=== PATIENT | male | born 1935 | race Caucasian/White ===

== ENCOUNTER 2019-05-10 05:02 | Inpatient (IN) ==
--- NOTE | 2019-05-10 05:13 | Emergency Department Note ---
Disposition Clinical Impression: Fracture of femoral neck, right, closed Qualifiers: Encounter type: initial encounter Qualified Code(s): S72.001A - Fracture of unspecified part of neck of right femur, initial encounter for closed fracture Disposition: Admitted As Inpatient Forms: ED Satisfaction Letter Time of Disposition: 06:32 Fall HPI - General Stated Complaint: HIP PAIN Time Seen by Provider: 05/10/19 05:08 Source: patient, EMS Mode of arrival: EMS Limitations: no limitations Nursing Notes Reviewed: Yes Vital Signs Reviewed: Yes - History of Present Illness HPI Narrative: 84M with Hx of HTN and Alzheimer's dementia presents to the ED via EMS from a [facility] after a fall. Patient tripped over his walker and fell on his right side causing him severe right hip pain to the point where he was unable to get up. He pressed his call light right away and nursing staff called EMS. Patient was not down longer than 5 minutes. Patient remembers the fall. He is alert and oriented to self and place but not time. He states this is normal for him. He states he did hit his head but does not have any head or neck pain at this time. He is not on any blood thinning medications. Patient states he does also have some right knee pain but his hip is more painful. He denies any other symptoms at this time. - Related Data Home Medications Medication Instructions Recorded Confirmed Carbidopa/Levodopa ER 50/200 1 each PO DAILY 04/16/16 04/16/16 [Sinemet ER 50-200 TAB] Cyclobenzaprine [Flexeril] 10 mg PO DAILY 04/16/16 04/16/16 Fenofibric Acid (Choline) 135 mg PO DAILY 04/16/16 04/16/16 [Trilipix] Finasteride [Proscar] 5 mg PO DAILY 04/16/16 04/16/16 Furosemide [Lasix] 40 mg PO DAILY 04/16/16 04/16/16 HYDROcodone/Acet 5/325 mg [[place] 1 tab PO Q6H PRN 04/16/16 04/16/16 5-325 mg] Meloxicam [Mobic] 15 mg PO DAILY 04/16/16 04/16/16 Pantoprazole Sodium 40 mg PO DAILY 04/16/16 04/16/16 Potassium Chloride [K-Tab ER] 20 meq PO DAILY 04/16/16 04/16/16 Simvastatin [Zocor] 40 mg PO HS 04/16/16 04/16/16 Tamsulosin HCl [Flomax] 0.4 mg PO DAILY 10/15/16 10/15/16 Allergies Allergy/AdvReac Type Severity Reaction Status Date / Time Penicillins AdvReac Swelling Verified 04/16/16 13:59 of Lip/Tongue/Throat All systems ED: reviewed and negative except as stated. Review of Systems: As Per HPI Constitutional: Denies: fever, chills, weakness Cardiovascular: Denies: chest pain, palpitations, dyspnea on exertion Respiratory: Denies: cough, dyspnea, wheezes Gastrointestinal: Denies: abdominal pain, nausea Musculoskeletal: Reports: arthralgia. Denies: back pain, neck pain Neurological: Denies: headache Fall PMH - Past Medical History Medical history: Reports: arthritis, CHF, dementia, hyperlipidemia, hypertension, myocardial infarction Surgical history: Reports: orthopedic, other Psychiatric history: Reports: other - Social History Smoking Status: Former smoker Alcohol use: Reports: none Drug use: Reports: none Physical Exam - General Limitations: no limitations General appearance: alert, in no apparent distress - Head Head exam: atraumatic, normocephalic - Eye Eye exam: Present: normal appearance, EOMI - Neck Neck exam: Present: normal inspection. Absent: tenderness - Chest Chest inspection: Present: normal inspection. Absent: tenderness, rash - Respiratory Respiratory exam: Present: normal lung sounds bilaterally. Absent: wheezes - Cardiovascular Cardiovascular exam: Present: regular rate, normal rhythm - Abdominal Exam Abdominal exam: Present: soft, Non-Tender. Absent: distention, guarding, rebound, rigidity - Extremities Exam Extremities exam: Present: other (right hip is tender to palpation. leg is slightly flexed and held in internal rotation. medial portion of right knee is tender to palpation. No signs of ecchymosis or edema of the right hip or knee. Bilateral dorsalis pedis pulses equal. 1+ pitting edema or the BLE.) - Neurological Exam Neurological exam: Present: alert, other (oriented to self and place but not time) - Psychiatric Psychiatric exam: Present: normal affect, normal mood - Skin Skin exam: Present: warm, dry, intact Course Vital Signs Temperature 97.9 F 05/10/19 05:05 Pulse Rate 88 05/10/19 05:05 Respiratory Rate 20 05/10/19 05:05 Blood Pressure 141/65 05/10/19 05:05 O2 Sat by Pulse Oximetry 99 05/10/19 05:05 Temperature 97.9 F 05/10/19 05:05 Pulse Rate 88 05/10/19 05:05 Respiratory Rate 20 05/10/19 05:05 Blood Pressure 141/65 05/10/19 05:05 O2 Sat by Pulse Oximetry 99 05/10/19 05:05 Oxygen Delivery Oxygen Delivery Room Air Fall - [facility] Narrative Medical decision making narrative: Pt presents after a mechanical fall with right hip and knee pain concerning for hip dislocation vs fracture. XRs of the RLE have been ordered. Pt is not in significant pain at this time but an IV will be placed for administration of pain medications. 0526 - x-rays taken at bedside revealed a comminuted femoral neck vs intertrochanteric fracture per my interpretation. Preop labs will be obtained and once the x-rays have officially been read by radiology we will page for thorough and plan on admission to the hospital. Pt is now experiencing some pain after manipulation of his leg to obtain the XRs. Daughter states the patient takes hydrocodone at home for chronic pain, therefore we will administer 1mg Dilaudid with Zofran to help with the patient's pain. 616 - Spoke with Dr. Dawkins who was made aware of the patient and states he will see the patient in consultation. Hospitalist has been paged for admission. Ekg did not demonstrate any significant abnormalities. Pts lab work was only significant for an elevated Creatinine which appears to be at the patient's baseline. 631 - Pt has been accepted to the hospital by Dr. Mathews - Medical Records Medical records reviewed: Yes I reviewed the patient's medical records. - Lab Data Lab results reviewed: Yes I reviewed the patient's lab results. Result diagrams: 05/10/19 05:12 05/10/19 05:12 Lab Results 05/10/19 05/10/19 05/10/19 Range/Units 05:12 05:12 05:12 WBC 9.5 (4.3-11.1) K/mcL RBC 4.06 L (4.19-5.50) M/mcL Hgb 12.7 L (12.9-16.9) g/dL Hct 38.3 (37.5-50.1) % MCV 94.3 (83.0-100.0) fL MCH 31.3 (28.0-33.3) pg MCHC 33.2 (31.6-35.5) g/dL RDW 13.1 (11.5-14.5) % Plt Count 255 (140-400) K/mcL MPV 11.3 (9.4-12.4) fL Immature Gran % 0.4 (0-4) % Seg Neutrophils % 59.5 % Lymphocytes % 26.1 % Monocytes % 10.3 % Eosinophils % 3.1 % Basophils % 0.6 % Neutrophils # 5.7 (1.6-8.9) K/mcL Lymphocytes # 2.5 (0.6-4.6) K/mcL Monocytes # 1.0 (0.0-1.3) K/mcL Eosinophils # 0.3 (0.0-0.6) K/mcL Basophils # 0.1 (0.0-0.2) K/mcL PT 11.8 (9.4-12.1) Seconds INR 1.0 Sodium 139 (136-145) mEq/L Potassium 3.7 (3.5-5.1) mEq/L Chloride 102 (98-107) mEq/L Carbon Dioxide 25 (23-29) mEq/L BUN 32 H (8-23) mg/dL Creatinine 2.66 H (0.70-1.30) mg/dL Est GFR ( Amer) 28 L (> 60) Est GFR (Non-Af Amer) 23 L (> 60) BUN/Creatinine Ratio 12 (6-26) Glucose 164 H (70-105) mg/dL Calculated Osmolality 299 (280-300) Calcium 9.5 (8.6-10.3) mg/dL - Radiology Data Radiology results reviewed: Yes I reviewed the patient's radiology results. - EKG Data EKG attestation: Yes I reviewed and interpreted this EKG. EKG results narrative: EKG obtained at 544 on 04/30/2019 Heart rate 83 bpm, IL interval 211, QRS duration 153, QT 410, QTC 482 Sinus rhythm with nonspecific intraventricular conduction delay. No signs of ST segment elevation or depression. No other T-wave abnormalities. No old EKG for comparison at this time.
[2019-05-10] MEDS ORDERED: Ondansetron 4 MG/2 ML VIAL IVP STA (05:29)
[2019-05-10] MEDS ORDERED: *HR* HYDROmorphone (PF) 1 MG/ML SYRINGE IVP ONE ×2 (05:29→08:51)
[2019-05-10 05:35] LABS: Basophils # 0.1 K/mcL (0.0-0.2); Basophils % 0.6 %; Eosinophils # 0.3 K/mcL (0.0-0.6); Eosinophils % 3.1 %; Hematocrit 38.3 % (37.5-50.1); Hemoglobin 12.7 g/dL (12.9-16.9); Immature Granulocytes % 0.4 % (0-4); Lymphocytes # 2.5 K/mcL (0.6-4.6); Lymphocytes % 26.1 %; Mean Corpuscular HGB Conc 33.2 g/dL (31.6-35.5); Mean Corpuscular Hemoglobin 31.3 pg (28.0-33.3); Mean Corpuscular Volume 94.3 fL (83.0-100.0); Mean Platelet Volume 11.3 fL (9.4-12.4); Monocytes % 10.3 %; Neutrophils # 5.7 K/mcL (1.6-8.9); Platelet Count 255 K/mcL (140-400); Red Blood Count 4.06 M/mcL (4.19-5.50); Red Cell Distribution Width 13.1 % (11.5-14.5); Segmented Neutrophils % 59.5 %; White Blood Count 9.5 K/mcL (4.3-11.1)
[2019-05-10 05:52] LABS: Prothrombin Time 11.8 Seconds (9.4-12.1)
--- NOTE | 2019-05-10 05:53 | Emergency Department Note ---
Disposition Clinical Impression: Fracture of femoral neck, right, closed Qualifiers: Encounter type: initial encounter Qualified Code(s): S72.001A - Fracture of unspecified part of neck of right femur, initial encounter for closed fracture Disposition: Admitted As Inpatient Forms: ED Satisfaction Letter Time of Disposition: 06:41 General Adult HPI - General Chief complaint: ED Fall Stated complaint: HIP PAIN Time Seen by Provider: 05/10/19 05:08 Source: patient, EMS Mode of arrival: EMS Limitations: no limitations Nursing Notes Reviewed: Yes Vital Signs Reviewed: Yes - History of Present Illness Pain Scale: 8 - Related Data Home Medications Medication Instructions Recorded Confirmed Carbidopa/Levodopa ER 50/200 1 each PO DAILY 04/16/16 04/16/16 [Sinemet ER 50-200 TAB] Cyclobenzaprine [Flexeril] 10 mg PO DAILY 04/16/16 04/16/16 Fenofibric Acid (Choline) 135 mg PO DAILY 04/16/16 04/16/16 [Trilipix] Finasteride [Proscar] 5 mg PO DAILY 04/16/16 04/16/16 Furosemide [Lasix] 40 mg PO DAILY 04/16/16 04/16/16 HYDROcodone/Acet 5/325 mg [[place] 1 tab PO Q6H PRN 04/16/16 04/16/16 5-325 mg] Meloxicam [Mobic] 15 mg PO DAILY 04/16/16 04/16/16 Pantoprazole Sodium 40 mg PO DAILY 04/16/16 04/16/16 Potassium Chloride [K-Tab ER] 20 meq PO DAILY 04/16/16 04/16/16 Simvastatin [Zocor] 40 mg PO HS 04/16/16 04/16/16 Tamsulosin HCl [Flomax] 0.4 mg PO DAILY 10/15/16 10/15/16 Allergies Allergy/AdvReac Type Severity Reaction Status Date / Time Penicillins AdvReac Swelling Verified 04/16/16 13:59 of Lip/Tongue/Throat Constitutional: Denies: fever, chills, weakness Cardiovascular: Denies: chest pain, palpitations, dyspnea on exertion Respiratory: Denies: cough, dyspnea, wheezes Gastrointestinal: Denies: abdominal pain, nausea Musculoskeletal: Reports: arthralgia. Denies: back pain, neck pain Neurological: Denies: headache Past Medical History - Past Medical History Medical history: Reports: arthritis, CHF, dementia, GERD, hyperlipidemia, hypertension, myocardial infarction Surgical history: Reports: orthopedic, other Psychiatric history: Reports: other - Social History Smoking Status: Former smoker Smokeless Tobacco Status: Yes (chewing tobacco) Alcohol use: Reports: none Drug use: Reports: none Physical Exam - General Limitations: no limitations General appearance: alert, in no apparent distress Course Vital Signs Temperature 97.9 F 05/10/19 05:05 Pulse Rate 88 05/10/19 05:05 Respiratory Rate 20 05/10/19 05:05 Blood Pressure 141/65 05/10/19 05:05 O2 Sat by Pulse Oximetry 99 05/10/19 05:05 Temperature 97.9 F 05/10/19 05:05 Pulse Rate 88 05/10/19 05:05 Respiratory Rate 20 05/10/19 05:05 Blood Pressure 141/65 05/10/19 05:05 O2 Sat by Pulse Oximetry 99 05/10/19 05:05 Oxygen Delivery Oxygen Delivery Room Air Medical Decision Making - Lab Data Lab results reviewed: Yes I reviewed the patient's lab results. Result diagrams: 05/10/19 05:12 05/10/19 05:12 Lab Results 05/10/19 05/10/19 05/10/19 Range/Units 05:12 05:12 05:12 WBC 9.5 (4.3-11.1) K/mcL RBC 4.06 L (4.19-5.50) M/mcL Hgb 12.7 L (12.9-16.9) g/dL Hct 38.3 (37.5-50.1) % MCV 94.3 (83.0-100.0) fL MCH 31.3 (28.0-33.3) pg MCHC 33.2 (31.6-35.5) g/dL RDW 13.1 (11.5-14.5) % Plt Count 255 (140-400) K/mcL MPV 11.3 (9.4-12.4) fL Immature Gran % 0.4 (0-4) % Seg Neutrophils % 59.5 % Lymphocytes % 26.1 % Monocytes % 10.3 % Eosinophils % 3.1 % Basophils % 0.6 % Neutrophils # 5.7 (1.6-8.9) K/mcL Lymphocytes # 2.5 (0.6-4.6) K/mcL Monocytes # 1.0 (0.0-1.3) K/mcL Eosinophils # 0.3 (0.0-0.6) K/mcL Basophils # 0.1 (0.0-0.2) K/mcL PT 11.8 (9.4-12.1) Seconds INR 1.0 Sodium 139 (136-145) mEq/L Potassium 3.7 (3.5-5.1) mEq/L Chloride 102 (98-107) mEq/L Carbon Dioxide 25 (23-29) mEq/L BUN 32 H (8-23) mg/dL Creatinine 2.66 H (0.70-1.30) mg/dL Est GFR ( Amer) 28 L (> 60) Est GFR (Non-Af Amer) 23 L (> 60) BUN/Creatinine Ratio 12 (6-26) Glucose 164 H (70-105) mg/dL Calculated Osmolality 299 (280-300) Calcium 9.5 (8.6-10.3) mg/dL - Radiology Data Radiology results reviewed: Yes I reviewed the patient's radiology results. Hip X-Ray 05/10/19 05:08 IMPRESSION: 1. Right femoral neck fracture as described. 2. No acute abnormality of the right knee with chronic findings as described. D/ / Vamsi De La O MD / Vamsi De La O MD Interpreting Provider: Vamsi De La O MD Knee X-Ray 05/10/19 05:08 IMPRESSION: 1. Right femoral neck fracture as described. 2. No acute abnormality of the right knee with chronic findings as described. D/ / Vamsi De La O MD / Vamsi De La O MD Interpreting Provider: Vamsi De La O MD - EKG Data EKG #1 EKG attestation: Yes I reviewed and interpreted this EKG. EKG results narrative: EKG shows normal sinus rhythm with ventricular rate of 83. Nonspecific intraventricular conduction delay. No significant ST segment elevation or depression. No arrhythmia or ectopy. Attestation Statement - Attestation Attestation: I, Martinez Jacob MD, personally evaluated this patient and discussed their management with the resident physician. I reviewed the resident's note and agree with the documented findings, medical decision making, and plan of care. I reviewed the residents documentation and agree with the residents assessment and plan of care. I have personally had face to face time with the patient. I personally supervised and was present for the watson/critical portions of the following procedures completed by the resident: EKG interpretation. 84-year-old male presents to the emergency department by EMS from his assisted living facility after the patient tripped and fell while walking with his walker. He fell onto the right hip. He pressed his call light for assistance just after falling. He was unable to get up. He complains of severe pain in the right hip area. He denies any other pain or injury. He did bump his head but denies loss of consciousness. No neck pain. He is not on any anticoagulants. On examination patient is a well-developed well-nourished elderly male in no acute distress. He is alert and oriented to person and place but not time. He states this is normal for him. He does have a history of dementia. There is no cyanosis or diaphoresis. Head is atraumatic. Neck is supple and nontender. Breath sounds are equal bilaterally. Heart regular. Abdomen soft and nontender. There is tenderness to palpation over the lateral aspect of the right hip over the greater trochanter region. The patient is lying on his left side in the right leg is internally rotated with slight flexion at the knee. Neurovascular function intact distally. EKG shows normal sinus rhythm with ventricular rate of 83. Nonspecific intraventricular conduction delay. No significant ST segment elevation or depression. No arrhythmia or ectopy. X-ray shows a comminuted right femoral neck fracture. Labs reviewed. Dr. Meraz discussed with the orthopedist manager of international, Dr. Dawkins. The hospitalist, Dr. Mathews, was consulted and accepted admission of the patient.
[2019-05-10 05:59] LABS: Calcium 9.5 mg/dL (8.6-10.3); Potassium 3.7 mEq/L (3.5-5.1)
[2019-05-10] MEDS ORDERED: Acetaminophen 325 MG TABLET PO PRN (07:49)
[2019-05-10] MEDS ORDERED: Naloxone 0.4 MG/ML INJ IVP PRN (07:49)
[2019-05-10] MEDS ORDERED: Ondansetron 4 MG/2 ML VIAL IVP PRN (07:49)
--- NOTE | 2019-05-10 08:01 | Internal Med History&Physical ---
Date of Encounter: 05/10/19 Time of Encounter: 07:45 Internal Medicine - H&P: HPI Chief complaint: Hip pain after fall Admitted From: Emergency Dept History of present illness: Lisa Pratt is an 84 M w hx Dementia, Parkinsons, HTN, CAD s/p [place], CKD4, BPH, who p/w R hip pain after a fall. Daughter was notified around 4am that patient, who lives in assisted living, was found to have fallen while ambulating using his walker. He complained of hip pain, and staff were unable to help him up and into bed, and thus EMS was called who brought patient to ED. In the ED, vitals afebrile, HR 88, RR 20, BP 140/60s, satting well RA. XR hip shows R-sided comminuted mildly displaced fem neck fx with slight angulation. Labs unremarkable except Hb 12.7, stable Cr ~2.6, and glucose 164. Pt given dilaudid with good improvement and Ortho made aware prior to admission. Past medical, surgical, social, and family histories reviewed and updated as below. Past Med Surg Social Fam HX - Past Medical History Medical history: arthritis, dementia, GERD, hyperlipidemia, myocardial infarction, renal disease Additional medical history: Blind in left eye, prostate disease, Parkinson's Psychiatric history: no psych history - Past Surgical History Surgical History: cholecystectomy Additional surgical history: back surgeries x3, right wrist repair. - Social History Smoking Status: Former smoker Smokeless Tobacco Status: Yes (chewing tobacco) Alcohol use: none Drug use: none - Family History Mother Living Status: Hx Family Respiratory Disorders: Yes (COPD) Hx Family Endocrine Disorder: Yes Internal Medicine - H&P: Meds Carbidopa/Levodopa ER 50/200 [Sinemet ER 50-200 TAB] 1 tab PO BID 04/16/16 [History] Cyclobenzaprine [Flexeril] 10 mg PO BID 04/16/16 [History] Fenofibric Acid (Choline) [Trilipix] 135 mg PO DAILY 04/16/16 [History] Finasteride [Proscar] 5 mg PO DAILY 04/16/16 [History] Furosemide [Lasix] 40 mg PO BID 04/16/16 [History] HYDROcodone/Acet 5/325 mg [Jay 5-325 mg] 1 tab PO BID PRN 04/16/16 [History] Meloxicam [Mobic] 15 mg PO DAILY 04/16/16 [History] Pantoprazole Sodium 40 mg PO DAILY 04/16/16 [History] Potassium Chloride [K-Tab ER] 20 meq PO BID 04/16/16 [History] Simvastatin [Zocor] 40 mg PO HS 04/16/16 [History] Tamsulosin HCl [Flomax] 0.8 mg PO DAILY 10/15/16 [History] Besifloxacin HCl [Besivance] 1 drop RIGHT EYE BID 05/10/19 [History] Bromfenac Sodium [Prolensa] 1 drop RIGHT EYE BID 05/10/19 [History] Donepezil [Aricept] 10 mg PO HS 05/10/19 [History] PrednisoLONE Acetate 1% Opth [PredFORTE 1%] 1 drop RIGHT EYE BID 05/10/19 [History] Allergy/AdvReac Type Severity Reaction Status Date / Time Penicillins AdvReac Swelling Verified 04/16/16 13:59 of Lip/Tongue/Throat All Systems PM: A 10-system review of systems was performed and is negative for pertinent findings except as documented above in the HPI. - Constitutional Vitals: Temp Pulse Resp BP Pulse Ox 97.9 F 76 19 134/56 98 05/10/19 05:05 05/10/19 07:26 05/10/19 07:26 05/10/19 07:26 05/10/19 07:26 Exam: General: good eye contact, uncomfortable appearing, elderly Head: Atraumatic, normocephalic. Face symmetric Eyes: EOMI, sclerae anicteric ENT: Mucous membranes moist. Normal oral mucosa. Trachea midline. Thoracic: No visible chest wall deformities. Normal breath sounds b/l, no wheezing or crackles Cardio: Normal S1 and S2, regular rate and rhythm, no murmurs Abdomen: Soft, nontender, nondistended Extremities: Warm, well perfused. DP pulses 2+ b/l. Does have b/l LE pitting edema to knees Skin: Intact. No rashes, bruises, or ulcers Neuro: Awake, oriented to person. Speech fluent. CN II-XII grossly intact. Strength 5/5 in b/l UE and LE Internal Med - H&P Results - Labs CBC & Chem 7: 05/10/19 05:12 05/10/19 05:12 Labs: Short CBC 05/10/19 Range/Units 05:12 WBC 9.5 (4.3-11.1) K/mcL Hgb 12.7 L (12.9-16.9) g/dL Hct 38.3 (37.5-50.1) % Plt Count 255 (140-400) K/mcL Neutrophils # 5.7 (1.6-8.9) K/mcL BMP 05/10/19 05:12 Sodium 139 Potassium 3.7 Chloride 102 Carbon Dioxide 25 BUN 32 H Creatinine 2.66 H Glucose 164 H Calcium 9.5 - Impressions ITS Impressions Hip X-Ray 05/10/19 05:08 IMPRESSION: 1. Right femoral neck fracture as described. 2. No acute abnormality of the right knee with chronic findings as described. D/ / Vamsi De La O MD / Vamsi De La O MD Interpreting Provider: Vamsi De La O MD Knee X-Ray 05/10/19 05:08 IMPRESSION: 1. Right femoral neck fracture as described. 2. No acute abnormality of the right knee with chronic findings as described. D/ / Vamsi De La O MD / Vamsi De La O MD Interpreting Provider: Vamsi De La O MD - Summary of Assessment and Plan Summary of Assessment and Plan: Eskell Pack is an 84 M w hx Dementia, Parkinsons, HTN, CAD s/p [place], CKD4, BPH, who p/w R hip pain after a fall, XR confirming R fem neck fx. R fem neck fx: - Ortho consulted - pain control w tylenol, oxycodone, dilaudid for breakthrough - PT/OT after surgery - anticipate low dose DOAC for 2 weeks post-op for dvt ppx Hyperglycemia: checking A1c Dementia: noted HTN: controlled, home CAD: home zocor CKD4: noted, baseline Cr ~2.6, continue home lasix 40 daily, holding meloxicam and PPI Parkinsons: home sinemet ER daily BPH: home flomax and proscar PPx: SCDs, will likely need low dose DOAC for a few weeks after surgery Activity: bed rest until surgery then up w PT/OT/RN FEN: NPO until determination of surgery; if not today, then regular diet and NPO@[place], no MIVF Lines: PIV Consults: Ortho Code: Full Dispo: patient requires inpatient eval and management at this time. Anticipate 2-3 days. Will need SNF
[2019-05-10] MEDS: Finasteride 5 MG TABLET PO SCH (09:05)
[2019-05-10] MEDS: Furosemide 40 MG TABLET PO SCH (09:05)
[2019-05-10 09:42] LABS: Estimated Average Glucose 169 mg/dl
--- NOTE | 2019-05-10 11:55 | Orthopedic Consult Note ---
Date of Encounter: 05/10/19 Time of Encounter: 11:00 Assessment and Plan (1) Fracture of femoral neck, right, closed Current Visit: Yes Status: Acute Qualifiers: Encounter type: initial encounter Qualified Code(s): S72.001A - Fracture of unspecified part of neck of right femur, initial encounter for closed fracture History of Present Illness Chief complaint: right hip pain HPI: Mr. Pratt is a 84 year old male presenting after unwitnessed fall at his assisted living for right hip fracture. Patient's daughter and MPOA at bedside. Patient's daughter relates h/o her own hip replaced in the past and is requesting an anterior approach if any intervention is to be done as well as transfer if not able to use anterior approach. On exam, patient lying in bed. Oriented to person. Patient states he doesn't feel to bad. Gross deformity of the right hip noted with swelling. No calf tenderness, erythema, warmth bilateral calves. DP pulses intact. Ankle motion intact. LLE unremarkable. Neurovascularly intact b/l LE. Wound wrap noted to left leg. Dressings taken down revealing large bullae of appx 4cm vertical and 3cm ap with yellow serous fluid containing. Does not appear to be draining. Dull erythema extending around appx 3 cm from bullae edge. Appears nontender to palpation around the area. Nurse present for wound examination. Requested nonadherent dressing and Kerlix with ARISTEO wrap be applied for wound protection. she states Wound Care has already been consulted. Patient's daughter states unknown reason/injury to cause left lateral calf wound. Discussed case with Dr. Dawkins. Recommendation for hemiarthroplasty. Patient's daughter is unsatisfied with this stating she would like to know why not total recommendation. She was made aware of typical indications for different types of surgery and that anterior approach is not typically used in the setting of trauma/fractures. She states desire to speak with surgeon directly regarding her concerns as again she states she will be requesting transfer if she is not satisfied with explanation for surgical approach rationale. We did review informed consent for hemiarthroplasty with understanding of revocation of consent at any time up to time of surgery. She provided informed consent for hemiarthroplasty pending conversation with Dr. Dawkins. Dr. Dawkins made aware. After patient's daughter s/w Dr. Dawkins - recommendation for Michel total hip tomorrow, 05/11. Stat CT michel ordered for preoperative planning and implementation of Michel robotic system. Will revise consent with patient's daughter/POA tomorrow. Past Med Surg Social Fam HX - Past Medical History Medical history: arthritis, dementia, GERD, hyperlipidemia, myocardial infarction, renal disease Additional medical history: Blind in left eye, prostate disease, Parkinson's Psychiatric history: no psych history - Past Surgical History Surgical History: cholecystectomy Additional surgical history: back surgeries x3, right wrist repair. - Social History Smoking Status: Former smoker Smokeless Tobacco Status: Yes (chewing tobacco) Alcohol use: none Drug use: none - Family History Mother Living Status: Hx Family Respiratory Disorders: Yes (COPD) Hx Family Endocrine Disorder: Yes Medications and Allergies Carbidopa/Levodopa ER 50/200 [Sinemet ER 50-200 TAB] 1 tab PO BID 04/16/16 [History] Cyclobenzaprine [Flexeril] 10 mg PO BID 04/16/16 [History] Fenofibric Acid (Choline) [Trilipix] 135 mg PO DAILY 04/16/16 [History] Finasteride [Proscar] 5 mg PO DAILY 04/16/16 [History] Furosemide [Lasix] 40 mg PO BID 04/16/16 [History] HYDROcodone/Acet 5/325 mg [[place] 5-325 mg] 1 tab PO BID PRN 04/16/16 [History] Meloxicam [Mobic] 15 mg PO DAILY 04/16/16 [History] Pantoprazole Sodium 40 mg PO DAILY 04/16/16 [History] Potassium Chloride [K-Tab ER] 20 meq PO BID 04/16/16 [History] Simvastatin [Zocor] 40 mg PO HS 04/16/16 [History] Tamsulosin HCl [Flomax] 0.8 mg PO DAILY 10/15/16 [History] Besifloxacin HCl [Besivance] 1 drop RIGHT EYE BID 05/10/19 [History] Bromfenac Sodium [Prolensa] 1 drop RIGHT EYE BID 05/10/19 [History] Donepezil [Aricept] 10 mg PO HS 05/10/19 [History] PrednisoLONE Acetate 1% Opth [PredFORTE 1%] 1 drop RIGHT EYE BID 05/10/19 [History] Acetaminophen [Pain Relief] 500 mg PO Q6H 7 Days #28 tablet 05/11/19 [Rx] Docusate [Colace] 100 mg PO BID 5 Days #10 capsule 05/11/19 [Rx] Ibuprofen [Motrin] 600 mg PO Q6HR PRN 7 Days #28 tab 05/11/19 [Rx] OxyCODONE Immed Rel [Roxicodone 5 MG] 5 mg PO Q6HR PRN 5 Days #20 tablet 9 [Rx] Allergy/AdvReac Type Severity Reaction Status Date / Time Penicillins AdvReac Swelling Verified 04/16/16 13:59 of Lip/Tongue/Throat All Systems Reviewed: The remainder of the systems were reviewed and are negative Physical Exam - Constitutional Vitals: Temp Pulse Resp BP Pulse Ox 98.4 F 92 18 138/63 97 05/10/19 08:07 05/10/19 08:07 05/10/19 08:07 05/10/19 08:07 05/10/19 08:07 Results - Labs Result Diagrams: 05/12/19 05:55 05/12/19 05:55 Labs: Abnormal lab results RBC 4.06 M/mcL (4.19-5.50) L 05/10/19 05:12 Hgb 12.7 g/dL (12.9-16.9) L 05/10/19 05:12 BUN 32 mg/dL (8-23) H 05/10/19 05:12 Creatinine 2.66 mg/dL (0.70-1.30) H 05/10/19 05:12 Est GFR ( Amer) 28 (> 60) L 05/10/19 05:12 Est GFR (Non-Af Amer) 23 (> 60) L 05/10/19 05:12 Glucose 164 mg/dL (70-105) H 05/10/19 05:12 Hemoglobin A1c 7.5 % (-5.6) H 05/10/19 05:12 H & H 05/10/19 Range/Units 05:12 Hgb 12.7 L (12.9-16.9) g/dL Hct 38.3 (37.5-50.1) % All other labs normal. Consult Discharge Plan - Plan Referrals: Nima Gipson Jr, MD [Primary Care Provider] - Prescriptions: Docusate [Colace] 100 mg PO BID 5 Days #10 capsule Ibuprofen [Motrin] 600 mg PO Q6HR PRN 7 Days #28 tab PRN Reason: Pain Acetaminophen [Pain Relief] 500 mg PO Q6H 7 Days #28 tablet OxyCODONE Immed Rel [Roxicodone 5 MG] 5 mg PO Q6HR PRN 5 Days #20 tablet PRN Reason: Severe Pain
[2019-05-10] MEDS: Carbidopa/Levodopa ER 50/200 TABLET PO SCH (12:19)
[2019-05-10] MEDS: *HR* OxyCODONE Immed Rel 5 MG TABLET PO PRN ×3 (12:30→20:57)
[2019-05-11] MEDS: *HR* OxyCODONE Immed Rel 5 MG TABLET PO PRN ×3 (01:00→13:33)
[2019-05-11 02:45] LABS: Hematocrit 34.7 % (37.5-50.1); Hemoglobin 11.4 g/dL (12.9-16.9); Mean Corpuscular HGB Conc 32.9 g/dL (31.6-35.5); Mean Corpuscular Hemoglobin 31.8 pg (28.0-33.3); Mean Corpuscular Volume 96.9 fL (83.0-100.0); Mean Platelet Volume 11.7 fL (9.4-12.4); Platelet Count 235 K/mcL (140-400); Red Blood Count 3.58 M/mcL (4.19-5.50); White Blood Count 8.6 K/mcL (4.3-11.1)
[2019-05-11 03:06] LABS: Magnesium 2.2 mg/dL (1.6-2.6); Potassium 3.6 mEq/L (3.5-5.1)
[2019-05-11] MEDS ORDERED: *HR* OxyCODONE Immed Rel 5 MG TABLET PO ONE (04:02)
[2019-05-11] MEDS ORDERED: *HR* HYDROmorphone 2 MG TABLET PO ONE (05:42)
[2019-05-11] MEDS ORDERED: Clindamycin 900 MG/50 ML 900 MG/50 ML IV.SOLN IVPB SCH ×2 (06:00→20:10)
--- NOTE | 2019-05-11 07:53 | Orthopedics Progress Note ---
Date of Encounter: 05/11/19 Time of Encounter: 07:52 Subjective Interval history: Patient seen this morning as well as yesterday, discussed treatment plan for right hip fracture with family, plan is for right robotic-assisted total hip replacement. We reviewed the risks and benefits as well as recovery. All questions were answered. The patient agreed to this treatment plan and acknowledged an understanding of the treatment plan as described. Objective Vital signs: Vital Signs Temp Pulse Resp BP Pulse Ox 05/11/19 05:29 98.2 F 86 18 128/74 96 05/11/19 04:30 98.2 F 83 17 122/72 96 05/10/19 22:36 97.9 F 91 16 118/69 98 05/10/19 18:37 98.7 F 91 16 138/76 94 05/10/19 12:50 98.7 F 96 18 140/71 97 05/10/19 08:07 98.4 F 92 18 138/63 97 Intake and Output 05/10/19 05/10/19 05/11/19 15:59 23:59 07:59 Output Total 175 / 175 Balance -175 / -175 Output: Urine 175 / 175 Other: # Urine Diapers 2 Weight 92.8 kg Blood Glucose* 149 Patient Weight 05/11/19 23:59 Weight 92.8 kg - Labs CBC & BMP: 05/11/19 01:56 05/11/19 01:56 Labs: Abnormal lab results RBC 3.58 M/mcL (4.19-5.50) L 05/11/19 01:56 Hgb 11.4 g/dL (12.9-16.9) L 05/11/19 01:56 Hct 34.7 % (37.5-50.1) L 05/11/19 01:56 BUN 27 mg/dL (8-23) H 05/11/19 01:56 Creatinine 2.32 mg/dL (0.70-1.30) H 05/11/19 01:56 Est GFR ( Amer) 33 (> 60) L 05/11/19 01:56 Est GFR (Non-Af Amer) 27 (> 60) L 05/11/19 01:56 Glucose 157 mg/dL (70-105) H 05/11/19 01:56 POC Glucose 149 mg/dL (70-99) H 05/10/19 12:32 Hemoglobin A1c 7.5 % (-5.6) H 05/10/19 05:12 Consult Discharge Plan - Plan Referrals: Nima Gipson Jr, MD [Primary Care Provider] -
--- NOTE | 2019-05-11 08:38 | Internal Med Progress Note ---
<Simon Sandhu - Last Filed: 05/11/19 14:19> Hospitalist Progress Note - Encounter Date of Encounter: 05/11/19 Time of Encounter: 08:37 - Subjective Interval History: Mr. Pratt is an 84 y/o M who presented to the ED on 05/10 after a fall at his assisted nursing facility. Pt. reported extreme right hip pain, xray revealed right hip fracture and right femoral neck fracture. Orthopedics was consulted and total hip replacement is scheduled for 05/11. Pt's pain was uncontrolled until the convenience recycle center tech of 05/11, pt. states that his pain is currently much better. Pt. denies palpitations, weakness, tingling, trouble urinating, fever, chills, SOB, coughing, wheezing, or chest pain. Pt. has not had a bowel movement yet. Pt. is lying comfortably in bed, family is at bedside. Pt's daughter reports slight blue discoloration of pt's hands. - Exam Vitals: Temp Pulse Resp BP Pulse Ox 98.2 F 86 18 128/74 96 05/11/19 05:29 05/11/19 05:29 05/11/19 05:29 05/11/19 05:29 05/11/19 05:29 Exam: Gen: AOx3, pleasant affect Chest: CTA b/l, no wheezing or rales Cardio: S1 and S2, no m/r/g Extremities: sensation and pulses present on all extremities Skin: Skin warm and dry, pitting edema present b/l lower extremity above the knee; chronic ulcer on lower left leg, wrapped Neuro: no focal deficits Abd: bowel sounds present, no tenderness or pain - Assessment and Plan (1) Fracture of femoral neck, right, closed Current Visit: Yes Status: Acute Assessment and Plan: Pt. fell in the convenience recycle center tech of 05/10 at his assisted living facility. Pt. brought to ED by ambulance and xray confirmed right hip fracture. Orthopedics consulted, total right hip replacement scheduled for 05/11 P ain control with tylenol, oxycodone, dilaudid for breakthrough Pt. not able to specifically quantify metabolic equivalents but did not endorse dyspnea on exertion. No murmur or gallop on heard on auscultory exam to exclude anesthesia success. PT/OT evaluation after surgery Anticipate low dose DOAC for 2 weeks post-op for dvt prophylaxis. (2) Parkinson disease Current Visit: Yes Status: Chronic Assessment and Plan: Continuation of home carbidopa and levodopa. (3) CAD (coronary artery disease) Current Visit: Yes Status: Chronic (4) Bilateral lower extremity edema Current Visit: Yes Status: Chronic Assessment and Plan: Continuation of home furosemide. - Time Spent with Patient Total time spent is greater than 50% in coordination of care (as documented) at patient's floor/unit and/or counseling patient: Internal Medicine: Result - Labs CBC & Chem 7: 05/11/19 01:56 05/11/19 01:56 Labs: Short CBC 05/11/19 Range/Units 01:56 WBC 8.6 (4.3-11.1) K/mcL Hgb 11.4 L (12.9-16.9) g/dL Hct 34.7 L (37.5-50.1) % Plt Count 235 (140-400) K/mcL BMP 05/11/19 01:56 Sodium 138 Potassium 3.6 Chloride 103 Carbon Dioxide 26 BUN 27 H Creatinine 2.32 H Glucose 157 H Calcium 9.0 - ABG Interpretation ABG results: PT/INR, D-dimer PT 11.8 Seconds (9.4-12.1) 05/10/19 05:12 - Impressions Impressions Hip CT 05/10/19 16:26 IMPRESSION: Acute comminuted severely angulated and moderately displaced right intertrochanteric femoral fracture. D/ / Blake Cavazos MD / Blake Cavazos MD Interpreting Provider: Blake Cavazos MD Consult Discharge Plan - Plan Referrals: Nima Gipson Jr, MD [Primary Care Provider] - <Simeon Villa - Last Filed: 05/11/19 18:19> Hospitalist Progress Note - Encounter Date of Encounter: 05/11/19 - Exam Vitals: Temp Pulse Resp BP Pulse Ox 98.2 F 81 16 117/76 95 05/11/19 05:29 05/11/19 10:00 05/11/19 10:00 05/11/19 10:00 05/11/19 10:00 - Time Spent with Patient Total time spent is greater than 50% in coordination of care (as documented) at patient's floor/unit and/or counseling patient: Internal Medicine: Result - Labs CBC & Chem 7: 05/11/19 01:56 05/11/19 01:56 Labs: Short CBC 05/11/19 Range/Units 01:56 WBC 8.6 (4.3-11.1) K/mcL Hgb 11.4 L (12.9-16.9) g/dL Hct 34.7 L (37.5-50.1) % Plt Count 235 (140-400) K/mcL BMP 05/11/19 01:56 Sodium 138 Potassium 3.6 Chloride 103 Carbon Dioxide 26 BUN 27 H Creatinine 2.32 H Glucose 157 H Calcium 9.0 - ABG Interpretation ABG results: PT/INR, D-dimer PT 11.8 Seconds (9.4-12.1) 05/10/19 05:12 - Attending Attestation The history, physical exam, and medical decision making was performed by the medical student either while I was physically present and actively involved or I personally re-performed the exam and medical decision making. I have verified the accuracy of the medical student's documentation with regards to the history, physical exam findings, and medical decision making on 05/11/19. Mr Pratt is currently admitted for acute hip fracture. He remains moderate to high risk due to potential for worsening clinical status. Mr Pratt is resting comfortably. No fever or chills. Pain control has been an issue. To go to OR today. Exam Alert. Comfortable at this time. NC. EOMI. Mucus membranes dry. Heart not tachy. No wheeze. Abd soft. No edema. No rash. I/P 1. R Hip fracture - for replacement today. 2. Parkinsons 3. CAD Further diagnoses and plan as above. <Simon Sandhu - Last Filed: 05/11/19 14:19> (1) Fracture of femoral neck, right, closed Qualifiers: Encounter type: initial encounter Qualified Code(s): S72.001A - Fracture of unspecified part of neck of right femur, initial encounter for closed fracture
[2019-05-11] MEDS: Finasteride 5 MG TABLET PO SCH (09:19)
[2019-05-11] MEDS: Carbidopa/Levodopa ER 50/200 TABLET PO SCH (09:19)
[2019-05-11] MEDS: Furosemide 40 MG TABLET PO SCH (09:19)
[2019-05-11] MEDS ORDERED: Leptospermum Honey Paste 1 APPL/5 ML MLS TP SCH (12:00)
[2019-05-11] MEDS ORDERED: Leptospermum Honey Paste 44 ML TUBE TP SCH (12:15)
[2019-05-11] MEDS ORDERED: Silvasorb 44.4 ML TUBE TP SCH (12:15)
[2019-05-11] MEDS ORDERED: *HR* Propofol 200 MG/20 ML VIAL IVP ONE (13:32)
[2019-05-11] MEDS ORDERED: *HR* FentaNYL (PF) 100 MCG/2 ML VIAL ONE ×2 (13:32→18:18)
[2019-05-11] MEDS ORDERED: *HR* Midazolam HCl 2 MG/2 ML VIAL ONE (13:32)
[2019-05-11] MEDS ORDERED: Ondansetron 4 MG/2 ML VIAL ONE (13:33)
[2019-05-11] MEDS ORDERED: Lidocaine -MPF 2% 2 ML VIAL ONE (13:33)
[2019-05-11] MEDS ORDERED: Dexamethasone 4 MG/ML VIAL ONE ×2 (13:33→16:58)
[2019-05-11] MEDS ORDERED: *HR* Succinylcholine 200 MG/10 ML VIAL IVP ONE (13:34)
[2019-05-11] MEDS ORDERED: Ethanol\\Acetic Acid\\Na Ace\\Ben 1,000 ML IRRIG.SOLN IR ONE (14:37)
--- NOTE | 2019-05-11 15:13 | Anesthesia Evaluation PreOp ---
Date of Encounter: 05/11/19 Time of Encounter: 15:10 - Past History Planned Operation: RIGHT ROBOTIC FLORIDALMA Cardiac History: OK (? 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) Anesthesia History: No Prior Anesthetic Complications, Past Anesthesia Alcohol Use: none Drug use: none Medications and Allergies Carbidopa/Levodopa ER 50/200 [Sinemet ER 50-200 TAB] 1 tab PO BID 04/16/16 [History] Cyclobenzaprine [Flexeril] 10 mg PO BID 04/16/16 [History] Fenofibric Acid (Choline) [Trilipix] 135 mg PO DAILY 04/16/16 [History] Finasteride [Proscar] 5 mg PO DAILY 04/16/16 [History] Furosemide [Lasix] 40 mg PO BID 04/16/16 [History] HYDROcodone/Acet 5/325 mg [[place] 5-325 mg] 1 tab PO BID PRN 04/16/16 [History] Meloxicam [Mobic] 15 mg PO DAILY 04/16/16 [History] Pantoprazole Sodium 40 mg PO DAILY 04/16/16 [History] Potassium Chloride [K-Tab ER] 20 meq PO BID 04/16/16 [History] Simvastatin [Zocor] 40 mg PO HS 04/16/16 [History] Tamsulosin HCl [Flomax] 0.8 mg PO DAILY 10/15/16 [History] Besifloxacin HCl [Besivance] 1 drop RIGHT EYE BID 05/10/19 [History] Bromfenac Sodium [Prolensa] 1 drop RIGHT EYE BID 05/10/19 [History] Donepezil [Aricept] 10 mg PO HS 05/10/19 [History] PrednisoLONE Acetate 1% Opth [PredFORTE 1%] 1 drop RIGHT EYE BID 05/10/19 [History] Allergy/AdvReac Type Severity Reaction Status Date / Time Penicillins AdvReac Swelling Verified 04/16/16 13:59 of Lip/Tongue/Throat - Meds/Allergy Pre-op Review Medications Reviewed: Yes Allergies Reviewed: Yes Anesthesia Results - Labs 05/11/19 01:56 05/11/19 01:56 Laboratory Tests 05/10/19 05/11/19 05:12 01:56 Est GFR (Non-Af Amer) 27 L Est Mean Plasma Glucose 169 Hemoglobin A1c 7.5 H Calcium 9.0 Magnesium 2.2 Anesthesia Exam Vital Signs/O2 Sat/Glucose, Most Recent Temp Pulse Resp BP Pulse Ox 98.2 F 86 18 128/74 96 05/11/19 05:29 05/11/19 05:29 05/11/19 05:29 05/11/19 05:29 05/11/19 05:29 Blood Glucose* 149 Weight: 93 KG - BMI 36 NPO (# of Hours): 8 - HEENT Mallampati: II Teeth: Edentulous - Cardiac Rhythm: Regular - Pulmonary Breath Sounds: bilateral Clear Anesthesia Assess/Plan ASA Score: 4 Anesthetic Plan: General Monitoring Plan: Standard Monitors Recovery Plan: PACU
[2019-05-11] MEDS ORDERED: Acetaminophen IV 1,000 MG/100 ML INFUS..BTL IVPB ONE (15:31)
[2019-05-11] MEDS ORDERED: Ipratropium/Albuterol Neb 3 ML IH PRN (15:31)
[2019-05-11] MEDS ORDERED: *HR* FentaNYL (PF) 100 MCG/2 ML VIAL IVP PRN (15:32)
[2019-05-11] MEDS ORDERED: Ondansetron 4 MG/2 ML VIAL IVP ONE (15:32)
[2019-05-11] MEDS ORDERED: *HR* Rocuronium Bromide 50 MG/5 ML VIAL ONE (15:52)
[2019-05-11] MEDS ORDERED: Clindamycin 900 MG/50 ML 900 MG/50 ML IV.SOLN IVPB ONE ×2 (16:02→16:32)
[2019-05-11] MEDS ORDERED: *HR* PHENYLEPHRINE 1,000 MCG/10 ML SYRINGE IVP ONE ×2 (16:31→17:44)
[2019-05-11] MEDS ORDERED: Hydrocortisone Sodium Succ 100 MG/2 ML VIAL ONE (16:32)
--- NOTE | 2019-05-11 18:03 | Orthopedic Operative Note ---
Date of procedure: 05/11/19 Pre-op diagnosis: Displaced right basicervical hip fracture Post-op diagnosis: same Procedure: Procedure: Right Total Hip Replacment robotic-assisted Estimated blood loss: 300 cc Hardware: Metal and polyethylene replacement. Wayne DM Cup: 56 cup Femoral stem uatsdin modular, 14 x 127 mm plasma stem 25+0: Body Head: 0 head with Lilia 2 Arthrex cerclage fiber tapes Procedural Notes: Grade 4 arthritic changes femoral head femoral neck fracture, Operative procedure: The patient was brought to the operating room and placed on the operating room table. After anesthesia was administered the patient was placed in the lateral decubitus position with the operative leg up. All pressure points were padded appropriately and the head was stabilized in the neutral position. The operative extremity was prepped and draped in the sterile surgical fashion patient received IV antibiotic prior to skin incision. 3 Steinmann pins were placed in the iliac crest 3 cm proximal to the anterior superior iliac spine this was for the robotic-assisted sensor. This was done through a small 2 cm incision. A standard posterior approach is made to the operative hip, the incision was made through the skin and subcutaneous tissue hemostasis was obtained with Bovie cautery. Using careful sharp dissection the fascia was identified and incised exposing the external rotators. The greater trochanter was marked, and length was measured at this time utilizing robotic assistance. The external rotators were released off the greater trochanter and tagged with #2 FiberWire suture. The capsule was T'd open and the hip was brought into internal rotation. The femoral head was removed, the femoral neck cut was made at the level of the lowest point. Patient had instability of the greater trochanter as well. Patient noted to have grade 4 arthritic changes femoral head. An anterior capsulotomy was performed for the anterior retractor. Soft tissues removed from the acetabulum. Patient noted to have grade 4 arthritic changes acetabulum. The acetabulum reference point was confirmed. The acetabulum was then mapped with robotic assistance. Based on the preoperative plan the acetabulum was reamed in one step with a 56 reamer. The 56 acetabulum was impacted with robotic assistance and 48 degrees of abduction and 18 degrees of anteversion. The hip was brought back in to internal rotation and prepared with the rest oration reamers to a size 14. The trial +0 cone Body was impacted in place in 20 degrees of anteversion. Trial reduction found the hip to be stable with 0 head and Lilia. The trials were removed and the real implants were impacted in place. The hip was reduced, patient had robotic confirmed leg length of 1 mm longer than the contralateral side. The hip had excellent stability with forward flexion to 90 degrees adduction of 30 degrees and internal rotation of 60 degrees. The hip had no shuck. The greater trochanter was secured to the implant with 2 Arthrex cerclage fiber tapes. The hip sat with an antibacterial solution. It was irrigated out with 2 L of pulse irrigation. The Steinmann pins were removed. The hip was closed by the PA. The deep tissue was irrigated and closed deep with #1 PDS suture superficially with 0 PDS suture and skin was closed with Dermabond and skin jason. The patient was placed in a sterile dressing and abduction pillow. The patient was transferred to the recovery room in stable condition. Anesthesia: GETA Surgeon: Manuel Dawkins Was there an medical assistant cardiology present: Yes [employer] Specialist: Mingo Padilla Estimated blood loss (cc): 300 Condition: stable Disposition: PACU
[2019-05-11] MEDS ORDERED: Esmolol 100 MG/10 ML VIAL IVP ONE (18:15)
--- NOTE | 2019-05-11 18:35 | Discharge Summary ---
Orders not resulted at time of discharge: Pending orders 05/11/19 18:03 Surgical Pathology [PTH] Routine Date of Encounter: 05/11/19 - Discharge Diagnosis (1) Fracture of femoral neck, right, closed Priority: Primary Status: Acute Qualifiers: Encounter type: initial encounter Qualified Code(s): S72.001A - Fracture of unspecified part of neck of right femur, initial encounter for closed fracture - Hospital Course Hospital course: Mr. Pratt is a 84 year old male - Time Spent with Patient Total time spent providing and/or coordinating discharge services: - Discharge Medications Prescriptions: New Docusate [Colace] 100 mg PO BID 5 Days #10 capsule Ibuprofen [Motrin] 600 mg PO Q6HR PRN 7 Days #28 tab PRN Reason: Pain Acetaminophen [Pain Relief] 500 mg PO Q6H 7 Days #28 tablet OxyCODONE Immed Rel [Roxicodone 5 MG] 5 mg PO Q6HR PRN 5 Days #20 tablet PRN Reason: Severe Pain No Action Simvastatin [Zocor] 40 mg PO HS Potassium Chloride [K-Tab ER] 20 meq PO BID Pantoprazole Sodium 40 mg PO DAILY Meloxicam [Mobic] 15 mg PO DAILY HYDROcodone/Acet 5/325 mg [[place] 5-325 mg] 1 tab PO BID PRN PRN Reason: Pain Furosemide [Lasix] 40 mg PO BID Finasteride [Proscar] 5 mg PO DAILY Fenofibric Acid (Choline) [Trilipix] 135 mg PO DAILY Cyclobenzaprine [Flexeril] 10 mg PO BID Carbidopa/Levodopa ER 50/200 [Sinemet ER 50-200 TAB] 1 tab PO BID Tamsulosin HCl [Flomax] 0.8 mg PO DAILY Besifloxacin HCl [Besivance] 1 drop RIGHT EYE BID Bromfenac Sodium [Prolensa] 1 drop RIGHT EYE BID Donepezil [Aricept] 10 mg PO HS PrednisoLONE Acetate 1% Opth [PredFORTE 1%] 1 drop RIGHT EYE BID Home Medications: Carbidopa/Levodopa ER 50/200 [Sinemet ER 50-200 TAB] 1 tab PO BID 04/16/16 [History] Cyclobenzaprine [Flexeril] 10 mg PO BID 04/16/16 [History] Fenofibric Acid (Choline) [Trilipix] 135 mg PO DAILY 04/16/16 [History] Finasteride [Proscar] 5 mg PO DAILY 04/16/16 [History] Furosemide [Lasix] 40 mg PO BID 04/16/16 [History] HYDROcodone/Acet 5/325 mg [[place] 5-325 mg] 1 tab PO BID PRN 04/16/16 [History] Meloxicam [Mobic] 15 mg PO DAILY 04/16/16 [History] Pantoprazole Sodium 40 mg PO DAILY 04/16/16 [History] Potassium Chloride [K-Tab ER] 20 meq PO BID 04/16/16 [History] Simvastatin [Zocor] 40 mg PO HS 04/16/16 [History] Tamsulosin HCl [Flomax] 0.8 mg PO DAILY 10/15/16 [History] Besifloxacin HCl [Besivance] 1 drop RIGHT EYE BID 05/10/19 [History] Bromfenac Sodium [Prolensa] 1 drop RIGHT EYE BID 05/10/19 [History] Donepezil [Aricept] 10 mg PO HS 05/10/19 [History] PrednisoLONE Acetate 1% Opth [PredFORTE 1%] 1 drop RIGHT EYE BID 05/10/19 [History] Acetaminophen [Pain Relief] 500 mg PO Q6H 7 Days #28 tablet 05/11/19 [Rx] Docusate [Colace] 100 mg PO BID 5 Days #10 capsule 05/11/19 [Rx] Ibuprofen [Motrin] 600 mg PO Q6HR PRN 7 Days #28 tab 05/11/19 [Rx] OxyCODONE Immed Rel [Roxicodone 5 MG] 5 mg PO Q6HR PRN 5 Days #20 tablet 05/11/19 [Rx] Allergies/Adverse Reactions: Allergy/AdvReac Type Severity Reaction Status Date / Time Penicillins AdvReac Swelling Verified 04/16/16 13:59 of Lip/Tongue/Throat Date of admission: 05/10/19 09:45 Primary care physician: Nima Gipson Jr, MD Consults: 05/10/19 05:24 Consult to Orthopedic Surgery [CONS] Stat Consulting Provider: [facility] Reason for Consult: right hip fracture Call Completed: Yes 05/10/19 06:57 Consult to Freight [employer]loader [CONS] Routine Reason for SW Consult: DC planning 05/10/19 11:21 Consult to Wound Care [CONS] Routine Reason for Consult: pressure area to bottom, wounds to left lower leg Time Notified: 11:22 Call Completed: Yes Labs on day of discharge: Labs from last 24 hours 05/11/19 05/11/19 01:56 01:56 WBC 8.6 RBC 3.58 L Hgb 11.4 L Hct 34.7 L MCV 96.9 MCH 31.8 MCHC 32.9 RDW 13.0 Plt Count 235 MPV 11.7 Sodium 138 Potassium 3.6 Chloride 103 Carbon Dioxide 26 BUN 27 H Creatinine 2.32 H Est GFR ( Amer) 33 L Est GFR (Non-Af Amer) 27 L BUN/Creatinine Ratio 12 Glucose 157 H Calculated Osmolality 294 Calcium 9.0 Magnesium 2.2 - Impressions ITS Impressions Hip X-Ray 05/10/19 05:08 IMPRESSION: 1. Right femoral neck fracture as described. 2. No acute abnormality of the right knee with chronic findings as described. D/ / Vamsi De La O MD / Vamsi De La O MD Interpreting Provider: Vamsi De La O MD Knee X-Ray 05/10/19 05:08 IMPRESSION: 1. Right femoral neck fracture as described. 2. No acute abnormality of the right knee with chronic findings as described. D/ / Vamsi De La O MD / Vamsi De La O MD Interpreting Provider: Vamsi De La O MD Hip CT 05/10/19 16:26 IMPRESSION: Acute comminuted severely angulated and moderately displaced right intertrochanteric femoral fracture. D/ / Blake Cavazos MD / Blake Cavazos MD Interpreting Provider: Blake Cavazos MD - Discharge Instructions Follow Up With: Nima Gipson Jr, MD [Primary Care Provider] -
[2019-05-11 19:30] LABS: Hematocrit 36.1 % (37.5-50.1); Hemoglobin 11.6 g/dL (12.9-16.9)
[2019-05-11] MEDS ORDERED: Ringers Solution, Lactated 1,000 ML ONE (19:34)
[2019-05-11] MEDS ORDERED: *HR* OxyCODONE Immed Rel 5 MG TABLET PO PRN (20:10)
[2019-05-11] MEDS ORDERED: MOM Conc 10 ML UD.LIQ PO PRN (20:10)
[2019-05-11] MEDS ORDERED: Ondansetron 4 MG/2 ML VIAL IVP PRN ×2 (20:10)
[2019-05-11] MEDS ORDERED: Temazepam 15 MG CAPSULE PO PRN (20:10)
[2019-05-11] MEDS ORDERED: Naloxone 0.4 MG/ML INJ IVP PRN (20:10)
[2019-05-11] MEDS ORDERED: Sennosides 8.6 MG TABLET PO PRN (20:10)
[2019-05-11] MEDS ORDERED: *HR* Promethazine 25 MG/ML VIAL IVP PRN (20:10)
[2019-05-11] MEDS ORDERED: traMADol 50 MG TABLET PO PRN (20:10)
[2019-05-11] MEDS: Ascorbic Acid 500 MG TABLET PO SCH (21:53)
[2019-05-11] MEDS: Gabapentin 300 MG CAPSULE PO SCH ×2 (21:54→22:15)
[2019-05-11] MEDS: Ringers Solution, Lactated 1,000 ML IVC SCH (21:54)
[2019-05-12] MEDS: HYDROcodone BIT/Homatropine 5 MG TABLET PO PRN ×4 (06:39→17:01)
[2019-05-12 06:54] LABS: Basophils % 0.1 %; Hematocrit 34.7 % (37.5-50.1); Hemoglobin 11.3 g/dL (12.9-16.9); Immature Granulocytes % 0.3 % (0-4); Lymphocytes # 0.5 K/mcL (0.6-4.6); Lymphocytes % 3.8 %; Mean Corpuscular HGB Conc 32.6 g/dL (31.6-35.5); Mean Corpuscular Hemoglobin 31.8 pg (28.0-33.3); Mean Corpuscular Volume 97.7 fL (83.0-100.0); Monocytes # 1.4 K/mcL (0.0-1.3); Monocytes % 10.6 %; Platelet Count 216 K/mcL (140-400); Red Blood Count 3.55 M/mcL (4.19-5.50); Red Cell Distribution Width 12.9 % (11.5-14.5); Segmented Neutrophils % 85.2 %; White Blood Count 12.9 K/mcL (4.3-11.1)
[2019-05-12] MEDS ORDERED: Clindamycin 900 MG/50 ML 900 MG/50 ML IV.SOLN IVPB ONE (07:00)
[2019-05-12 07:19] LABS: Calcium 8.8 mg/dL (8.6-10.3); Potassium 4.1 mEq/L (3.5-5.1)
[2019-05-12] MEDS: Furosemide 40 MG TABLET PO SCH (08:31)
[2019-05-12] MEDS: Multivit/Ca/Min/Fe/FA 1 TAB TABLET PO SCH (08:31)
[2019-05-12] MEDS: Gabapentin 300 MG CAPSULE PO SCH ×3 (08:31→20:47)
[2019-05-12] MEDS: Finasteride 5 MG TABLET PO SCH (08:31)
[2019-05-12] MEDS: Ascorbic Acid 500 MG TABLET PO SCH ×2 (08:32→16:50)
[2019-05-12] MEDS: Silvasorb 44.4 ML TUBE TP SCH (08:32)
[2019-05-12] MEDS: Leptospermum Honey Paste 44 ML TUBE TP SCH (08:32)
--- NOTE | 2019-05-12 10:13 | Internal Med Progress Note ---
Hospitalist Progress Note - Encounter Date of Encounter: 05/12/19 Time of Encounter: 10:00 - Subjective Interval History: Mr Pratt is currently admitted for R hip fracture s/p FLORIDALMA. He remains moderate to high risk due to potential for worsening clinical status. Mr Pratt is resting at this time. He has a history of difficulty wearing off anesthesia in the past. He is somnolent now but got all his meds and had PT earlier. Pain appears to be OK at this time. Daughters at bedside and prefer he not go to SNF if he is not staying awake. - Exam Vitals: Temp Pulse Resp BP Pulse Ox 99.3 F 90 18 116/73 96 05/12/19 07:45 05/12/19 07:45 05/12/19 07:45 05/12/19 07:45 05/12/19 07:45 Exam: General: Somnolent but arouses. Appears comfortable. Skin: No rash. H: Normocephalic. EENT: EOMI, Mucus membranes moist. Cardiovascular: Normal S1 & S2, not tachycardic. Regular. Lungs: Decreased breath sounds. Abdomen: Soft, non-tender, Extremities: S/P FLORIDALMA Neurological: Normal cognition and motor skills. Pulses: radial pulses normal +2. Rest of the physical exam is non contributory - Assessment and Plan (1) Fracture of femoral neck, right, closed Current Visit: Yes Status: Acute Assessment and Plan: Pt is currently admitted for acute R femoral fracture and is s/p FLORIDALMA Continue pain control and supportive care. Plan SNF for rehab. (2) CAD (coronary artery disease) Current Visit: Yes Status: Chronic Assessment and Plan: Chronic issue. (3) Parkinson disease Current Visit: Yes Status: Chronic Assessment and Plan: Continue home meds. (4) CKD (chronic kidney disease) stage 4, GFR 15-29 ml/min Current Visit: Yes Status: Chronic Assessment and Plan: Avoid nephrotoxins as able - Time Spent with Patient Total time spent is greater than 50% in coordination of care (as documented) at patient's floor/unit and/or counseling patient: Internal Medicine: Result - Labs CBC & Chem 7: 05/12/19 05:55 05/12/19 05:55 Labs: Short CBC 05/11/19 05/12/19 Range/Units 19:10 05:55 WBC 12.9 H (4.3-11.1) K/mcL Hgb 11.6 L 11.3 L (12.9-16.9) g/dL Hct 36.1 L 34.7 L (37.5-50.1) % Plt Count 216 (140-400) K/mcL Neutrophils # 11.0 H (1.6-8.9) K/mcL BMP 05/12/19 05:55 Sodium 138 Potassium 4.1 Chloride 101 Carbon Dioxide 24 BUN 27 H Creatinine 2.10 H Glucose 208 H Calcium 8.8 - ABG Interpretation ABG results: PT/INR, D-dimer PT 11.8 Seconds (9.4-12.1) 05/10/19 05:12 - Impressions Impressions Hip X-Ray 05/11/19 01:00 IMPRESSION: Status post right total hip arthroplasty. D/ / Herbie Rico MD / Herbie Rioc MD Interpreting Provider: Herbie Rico MD Consult Discharge Plan - Plan Referrals: Nima Gipson Jr, MD [Primary Care Provider] - Prescriptions: Docusate [Colace] 100 mg PO BID 5 Days #10 capsule Ibuprofen [Motrin] 600 mg PO Q6HR PRN 7 Days #28 tab PRN Reason: Pain Acetaminophen [Pain Relief] 500 mg PO Q6H 7 Days #28 tablet OxyCODONE Immed Rel [Roxicodone 5 MG] 5 mg PO Q6HR PRN 5 Days #20 tablet PRN Reason: Severe Pain (1) Fracture of femoral neck, right, closed Qualifiers: Encounter type: subsequent encounter Fracture healing: with routine healing Qualified Code(s): S72.001D - Fracture of unspecified part of neck of right femur, subsequent encounter for closed fracture with routine healing (2) CAD (coronary artery disease) Qualifiers: Coronary Disease-Associated Artery/Lesion type: [place] artery [place] vs. transplanted heart: [place] heart Associated angina: without angina Qualified Code(s): I25.10 - Atherosclerotic heart disease of [place] coronary artery without angina pectoris
[2019-05-12] MEDS: Carbidopa/Levodopa ER 50/200 TABLET PO SCH (12:07)
[2019-05-12] MEDS: Ringers Solution, Lactated 1,000 ML IVC SCH (13:02)
[2019-05-12] MEDS: Acetaminophen 325 MG TABLET PO PRN (16:50)
[2019-05-12] MEDS: Tobramycin/Dex Opth DROPS 2.5 ML BOTTLE LEFT EYE SCH ×2 (18:42→21:17)
[2019-05-12] MEDS: Artificial Tears SOLN 15 ML BOTTLE BOTH EYES SCH ×2 (18:42→21:16)
[2019-05-12] MEDS: BESIFLOXACIN HCL OP SCH (21:16)
[2019-05-12] MEDS: (Bromfenac Sodium [Prolensa] 1 DROP) OP SCH (21:17)
[2019-05-12] MEDS: PrednisoLONE Acetate 1% Opth 5 ML BOTTLE RIGHT EYE SCH (21:17)
[2019-05-12 21:24] LABS: Bilirubin,Urine Negative (Negative); Blood,Urine Negative (Negative); Clarity,Urine Clear (Clear); Color,Urine Yellow (Yellow); Glucose,Urine (UA) Normal (Normal); Ketones,Urine Negative (Negative); Leukocyte Esterase,Urine Negative (Negative); Nitrite,Urine Negative (Negative); PH,Urine 5.5 pH Units (5.0-8.0); Protein,Urine Negative (Neg-Trace); Specific Gravity,Urine 1.014 (1.010-1.025); Urobilinogen,Urine Normal (Normal)
--- NOTE | 2019-05-12 21:46 | Event Note ---
Date of Encounter: 05/12/19 Time of Encounter: 20:31 Called to patient's room by patient's nurse CHRISSY Alcazar d/t family concerns about patient's current somnolence/lethargy. Family stated patient was "not acting like himself". I reviewed the pts. chart. WBC was 8.6 yesterday and is now 12.9. Patient had a temperature of 100.5 earlier in the evening at 17:00. GFR improving from 27 yesterday to 30 today. Patient had robotic-assisted right total hip replacement yesterday. Family denies hx of known liver disease. I explained to the family that while the patient is not currently meeting sepsis criteria that I had placed orders to stay on top of events which could change rapidly. Stat ammonia, lactic, and blood cultures x2 ordered. Stat U/A w/reflex micro and culture ordered. Family reported that the pt. was having coughing spells after drinking so 1V Portable CXR ordered to r/o infective process and/or aspiration. Aspiration precautions and elevation of HOB ordered. Patient's SpO2 was in low 90s on RA, so nurse instructed to place pt. on 2L via NC and do continuous pulse oximetry. SpO2 improved to high 90's after O2 placement. I assured family that I would be monitoring the pt. closely overnight and give them any test results in real time. Family expressed understanding and agreement to plan and all questions were answered and addressed. Nurse instructed to continue monitoring this pt. closely overnight and alert me immediately of any adverse changes or pending test results.
--- NOTE | 2019-05-13 00:06 | Electrocardiograph Report ---
AlyssaNtirety Test Date: 2019-05-10 Pat Name: Lisa Pratt Department: [id number] Room: [facility] Gender: M [employer]: : 1935 Requested By: Layne Meraz Order Number: [id number] Reading MD: Elena Vazquez Measurements Intervals [place] Rate: 83 P: -8 [place]: 211 QRS: -57 QRSD: 153 T: 41 QT: 410 QTc: 482 Interpretive Statements Sinus rhythm Nonspecific IVCD with LAD Probable anterolateral infarct, old Baseline wander in lead(s) V5 POOR R WAVE PROGRESSION Electronically Signed On 05-13-2019 0:05:16 EDT by Elena Vazquez
[2019-05-13 01:32] LABS: Basophils # 0.1 K/mcL (0.0-0.2); Basophils % 0.5 %; Eosinophils # 0.1 K/mcL (0.0-0.6); Eosinophils % 0.9 %; Immature Granulocytes % 0.4 % (0-4); Lymphocytes # 1.3 K/mcL (0.6-4.6); Lymphocytes % 12.6 %; Mean Corpuscular HGB Conc 32.2 g/dL (31.6-35.5); Mean Corpuscular Hemoglobin 31.2 pg (28.0-33.3); Mean Corpuscular Volume 96.8 fL (83.0-100.0); Mean Platelet Volume 11.6 fL (9.4-12.4); Monocytes # 1.5 K/mcL (0.0-1.3); Monocytes % 14.5 %; Neutrophils # 7.5 K/mcL (1.6-8.9); Platelet Count 201 K/mcL (140-400); Red Blood Count 2.79 M/mcL (4.19-5.50); Red Cell Distribution Width 13.1 % (11.5-14.5); Segmented Neutrophils % 71.1 %; White Blood Count 10.5 K/mcL (4.3-11.1)
[2019-05-13 01:39] LABS: Hemoglobin 8.7 g/dL (12.9-16.9)
[2019-05-13 01:50] LABS: Calcium 8.3 mg/dL (8.6-10.3)
[2019-05-13] MEDS ORDERED: 0.9 % Sodium Chloride 1,000 ML IVC SCH (04:45)
[2019-05-13] MEDS: Ringers Solution, Lactated 1,000 ML IVC SCH (04:45)
[2019-05-13] MEDS ORDERED: 0.9 % Sodium Chloride 500 ML IVC ONE (05:56)
[2019-05-13 06:44] LABS: Hematocrit 26.1 % (37.5-50.1); Hemoglobin 8.6 g/dL (12.9-16.9)
[2019-05-13] MEDS ORDERED: Furosemide 20 MG/2 ML VIAL IVP ONE (07:42)
[2019-05-13] MEDS ORDERED: 0.9 % Sodium Chloride 250 ML IVC SCH (07:45)
[2019-05-13] MEDS: Finasteride 5 MG TABLET PO SCH (08:20)
[2019-05-13] MEDS: Fenofibrate 54 MG TABLET PO SCH (08:22)
[2019-05-13] MEDS: Multivit/Ca/Min/Fe/FA 1 TAB TABLET PO SCH (08:24)
[2019-05-13] MEDS: Ascorbic Acid 500 MG TABLET PO SCH ×2 (08:24→15:35)
[2019-05-13] MEDS: (Bromfenac Sodium [Prolensa] 1 DROP) OP SCH ×2 (08:26→21:25)
[2019-05-13] MEDS: BESIFLOXACIN HCL OP SCH ×2 (08:26→21:25)
[2019-05-13] MEDS: Gabapentin 300 MG CAPSULE PO SCH (08:27)
[2019-05-13] MEDS: Artificial Tears SOLN 15 ML BOTTLE BOTH EYES SCH ×4 (08:28→21:26)
[2019-05-13] MEDS: PrednisoLONE Acetate 1% Opth 5 ML BOTTLE RIGHT EYE SCH ×2 (08:28→21:26)
[2019-05-13] MEDS: Tobramycin/Dex Opth DROPS 2.5 ML BOTTLE LEFT EYE SCH ×4 (08:28→21:26)
[2019-05-13] MEDS: Silvasorb 44.4 ML TUBE TP SCH (08:29)
[2019-05-13] MEDS: Leptospermum Honey Paste 44 ML TUBE TP SCH (08:29)
[2019-05-13] MEDS ORDERED: 0.9 % Sodium Chloride 250 ML ONE ×2 (10:12→14:16)
[2019-05-13 10:14] LABS: Hematocrit 26.5 % (37.5-50.1); Hemoglobin 8.6 g/dL (12.9-16.9)
--- NOTE | 2019-05-13 12:58 | Internal Med Progress Note ---
Hospitalist Progress Note - Encounter Date of Encounter: 05/13/19 Time of Encounter: 12:15 - Subjective Interval History: Mr Pratt is currently admitted for acute hip fracture s/p FLORIDALMA. He remains moderate to high risk due to potential for worsening clinical status. Mr Pratt is somnolent. Did participate with therapy today. Had low grade temp yesterday - work up negative. CXR has most likely atelectasis. Hemoglobin dropped this AM. No CP or SOB noted. Daughters at bedside. - Exam Vitals: Temp Pulse Resp BP Pulse Ox 97.8 F 78 18 100/64 100 05/13/19 10:40 05/13/19 10:40 05/13/19 10:40 05/13/19 10:40 05/13/19 10:40 Exam: General: Somnolent. Arouses to name. Skin: No rash. H: Normocephalic. EENT: EOMI, Mucus membranes moist. Cardiovascular: Normal S1 & S2, Regular and not tachycardic. Lungs: Decreased breath sounds. No wheeze or rhonchi Abdomen: Soft, non-tender, Extremities: S/P FLORIDALMA. No significant edema. Neurological: Normal cognition. Some stiffness. Occ myoclonic jerk noted. Pulses: radial pulses normal +2. Rest of the physical exam is non contributory - Assessment and Plan (1) Anemia Current Visit: Yes Status: Acute Assessment and Plan: Anemia related to acute blood loss from fracture. Transfuse today. (2) Fracture of femoral neck, right, closed Current Visit: Yes Status: Acute Assessment and Plan: Pt is currently admitted for acute R femoral fracture and is s/p FLORIDALMA Supportive care. Low grade temp - most likely atelectasis. Plan SNF for rehab - [facility] unable to take until Tuesday (3) CAD (coronary artery disease) Current Visit: Yes Status: Chronic Assessment and Plan: Chronic issue. (4) Parkinson disease Current Visit: Yes Status: Chronic Assessment and Plan: Continue home meds. Pt has been more somnolent Appears that post op he has been given Neurontin - will discontinue in light of CKD and monitor. (5) CKD (chronic kidney disease) stage 4, GFR 15-29 ml/min Current Visit: Yes Status: Chronic Assessment and Plan: Avoid nephrotoxins as able Pt has been placed on Naprosyn post operatively - discontinued today. (6) CHF (congestive heart failure) Current Visit: Yes Status: Chronic Assessment and Plan: Pt has reported hx of CHF but no echo in our records. - Time Spent with Patient Total time spent is greater than 50% in coordination of care (as documented) at patient's floor/unit and/or counseling patient: Internal Medicine: Result - Labs CBC & Chem 7: 05/13/19 09:55 05/13/19 01:12 Labs: Short CBC 05/13/19 05/13/19 05/13/19 Range/Units 01:12 06:31 09:55 WBC 10.5 (4.3-11.1) K/mcL Hgb 8.7 L D 8.6 L 8.6 L (12.9-16.9) g/dL Hct 27.0 L 26.1 L 26.5 L (37.5-50.1) % Plt Count 201 (140-400) K/mcL Neutrophils # 7.5 (1.6-8.9) K/mcL BMP 05/13/19 01:12 Sodium 138 Potassium 4.0 Chloride 103 Carbon Dioxide 25 BUN 33 H Creatinine 2.23 H Glucose 185 H Calcium 8.3 L Urine 05/12/19 Range/Units 21:10 Urine Color Yellow (Yellow) Urine Clarity Clear (Clear) Urine pH 5.5 (5.0-8.0) pH Units Ur Specific [place] 1.014 (1.010-1.025) Urine Protein Negative (Neg-Trace) mg/dL Urine Glucose (UA) Normal (Normal) mg/dL - ABG Interpretation ABG results: PT/INR, D-dimer PT 11.8 Seconds (9.4-12.1) 05/10/19 05:12 - Impressions Impressions Chest X-Ray 05/12/19 21:03 IMPRESSION: Lateral left basilar pleural-parenchymal process possibly effusion and atelectasis or early pneumonia. D/ / Gerber Reyna / Gerber Reyna Interpreting Provider: Gerber Reyna Consult Discharge Plan - Plan Referrals: Nima Gipson Jr, MD [Primary Care Provider] - Prescriptions: Docusate [Colace] 100 mg PO BID 5 Days #10 capsule Ibuprofen [Motrin] 600 mg PO Q6HR PRN 7 Days #28 tab PRN Reason: Pain Acetaminophen [Pain Relief] 500 mg PO Q6H 7 Days #28 tablet OxyCODONE Immed Rel [Roxicodone 5 MG] 5 mg PO Q6HR PRN 5 Days #20 tablet PRN Reason: Severe Pain (1) Anemia Qualifiers: Anemia type: other cause Other causes of anemia: acute posthemorrhagic Qualified Code(s): D62 - Acute posthemorrhagic anemia (2) Fracture of femoral neck, right, closed Qualifiers: Encounter type: subsequent encounter Fracture healing: with routine healing Qualified Code(s): S72.001D - Fracture of unspecified part of neck of right femur, subsequent encounter for closed fracture with routine healing (3) CAD (coronary artery disease) Qualifiers: Coronary Disease-Associated Artery/Lesion type: [place] artery [place] vs. transplanted heart: [place] heart Associated angina: without angina Qualified Code(s): I25.10 - Atherosclerotic heart disease of [place] coronary artery without angina pectoris (6) CHF (congestive heart failure) Qualifiers: Heart failure type: unspecified Heart failure chronicity: unspecified Qualified Code(s): I50.9 - Heart failure, unspecified
[2019-05-13] MEDS: Carbidopa/Levodopa ER 50/200 TABLET PO SCH (13:26)
[2019-05-13] MEDS: traMADol 50 MG TABLET PO PRN (15:35)
--- NOTE | 2019-05-13 17:43 | Orthopedics Progress Note ---
Date of Encounter: 05/13/19 Time of Encounter: 17:59 Subjective Principal diagnosis: Status post total hip arthroplasty Interval history: The patient is without complaints. Currently being transfused 2 units. Afebrile vital signs are stable. Incision is clean dry and intact. Neurovascularly intact with regard to bilateral lower extremities. Assessment :stable. Plan mobilize ,continue analgesics, discharge planning. Check hemoglobin and hematocrit after transfusion. Objective Vital signs: Vital Signs Temp Pulse Resp BP Pulse Ox 05/13/19 17:35 97.8 F 80 16 104/65 100 05/13/19 14:26 97.5 F L 74 16 98/61 100 05/13/19 14:11 97.8 F 74 16 96/59 100 05/13/19 13:32 97.4 F L 73 16 107/59 100 05/13/19 10:40 97.8 F 78 18 100/64 100 05/13/19 10:25 97.5 F L 78 16 96/59 100 05/13/19 06:44 98.2 F 75 20 94/60 100 05/13/19 05:45 114/74 05/13/19 04:46 97.9 F 74 20 84/49 100 05/12/19 23:12 98.3 F 75 20 100/64 100 05/12/19 21:17 97 05/12/19 18:46 98.2 F 82 20 101/62 95 Intake and Output 05/13/19 05/13/19 05/13/19 07:59 15:59 23:59 Intake Total 2450 / 3270 470 / 3270 350 / 3270 Output Total 375 / 1430 1055 / 1430 Balance 2075 / 1840 -585 / 1840 350 / 1840 Intake: IV Fluids 2450 / 2450 0.9 % Sodium Chloride 500 ML @ 500 / 500 500 mls/hr IVC .Q1H ONE Rx#: [id number] Lactated Ringers 1,000 ML @ 75 1950 / 1950 mls/hr IVC .[id number] [facility] Rx#: [id number] Oral 120 / 120 Blood Product 350 / 700 350 / 700 Rbcs Leuko Poor As-1 Unit 350 / 350 [id number] Rbcs Leuko Poor As-1 Unit 0 / 350 350 / 350 [id number] Output: Urine 1055 / 1055 Straight Cath 375 / 375 Other: Meal Breakfast Percent of Meal Consumed 25% # Urine Diapers 1 Weight 93 kg Patient Weight 05/13/19 23:59 Weight 93 kg - Labs CBC & BMP: 05/13/19 09:55 05/13/19 01:12 Labs: Abnormal lab results WBC 12.9 K/mcL (4.3-11.1) H 05/12/19 05:55 RBC 2.79 M/mcL (4.19-5.50) L 05/13/19 01:12 Hgb 8.6 g/dL (12.9-16.9) L 05/13/19 09:55 Hct 26.5 % (37.5-50.1) L 05/13/19 09:55 Neutrophils # 11.0 K/mcL (1.6-8.9) H 05/12/19 05:55 Lymphocytes # 0.5 K/mcL (0.6-4.6) L 05/12/19 05:55 Monocytes # 1.5 K/mcL (0.0-1.3) H 05/13/19 01:12 BUN 33 mg/dL (8-23) H 05/13/19 01:12 Creatinine 2.23 mg/dL (0.70-1.30) H 05/13/19 01:12 Est GFR ( Amer) 34 (> 60) L 05/13/19 01:12 Est GFR (Non-Af Amer) 28 (> 60) L 05/13/19 01:12 Glucose 185 mg/dL (70-105) H 05/13/19 01:12 POC Glucose 149 mg/dL (70-99) H 05/10/19 12:32 Hemoglobin A1c 7.5 % (-5.6) H 05/10/19 05:12 Calcium 8.3 mg/dL (8.6-10.3) L 05/13/19 01:12 Crossmatch See Detail 05/10/19 07:23 Consult Discharge Plan - Plan Referrals: Nima Gipson Jr, MD [Primary Care Provider] - Prescriptions: Docusate [Colace] 100 mg PO BID 5 Days #10 capsule Ibuprofen [Motrin] 600 mg PO Q6HR PRN 7 Days #28 tab PRN Reason: Pain Acetaminophen [Pain Relief] 500 mg PO Q6H 7 Days #28 tablet OxyCODONE Immed Rel [Roxicodone 5 MG] 5 mg PO Q6HR PRN 5 Days #20 tablet PRN Reason: Severe Pain
--- NOTE | 2019-05-13 17:46 | Orthopedics Progress Note ---
Date of Encounter: 05/12/19 Time of Encounter: 10:20 Subjective Principal diagnosis: Status post total hip arthroplasty Interval history: The patient is without complaints. Plan his transfusion for low hemoglobin. Afebrile vital signs are stable. Incision is clean dry and intact. Neurovascularly intact with regard to bilateral lower extremities Assessment :st able. Plan mobilize ,continue analgesics, discharge planning. Transfusion. Objective Vital signs: Vital Signs Temp Pulse Resp BP Pulse Ox 05/13/19 17:35 97.8 F 80 16 104/65 100 05/13/19 14:26 97.5 F L 74 16 98/61 100 05/13/19 14:11 97.8 F 74 16 96/59 100 05/13/19 13:32 97.4 F L 73 16 107/59 100 05/13/19 10:40 97.8 F 78 18 100/64 100 05/13/19 10:25 97.5 F L 78 16 96/59 100 05/13/19 06:44 98.2 F 75 20 94/60 100 05/13/19 05:45 114/74 05/13/19 04:46 97.9 F 74 20 84/49 100 05/12/19 23:12 98.3 F 75 20 100/64 100 05/12/19 21:17 97 05/12/19 18:46 98.2 F 82 20 101/62 95 Intake and Output 05/13/19 05/13/19 05/13/19 07:59 15:59 23:59 Intake Total 2450 / 3270 470 / 3270 350 / 3270 Output Total 375 / 1430 1055 / 1430 Balance 2075 / 1840 -585 / 1840 350 / 1840 Intake: IV Fluids 2450 / 2450 0.9 % Sodium Chloride 500 ML @ 500 / 500 500 mls/hr IVC .Q1H ONE Rx#: [id number] Lactated Ringers 1,000 ML @ 75 1950 / 1950 mls/hr IVC .[id number] [facility] Rx#: [id number] Oral 120 / 120 Blood Product 350 / 700 350 / 700 Rbcs Leuko Poor As-1 Unit 350 / 350 [id number] Rbcs Leuko Poor As-1 Unit 0 / 350 350 / 350 [id number] Output: Urine 1055 / 1055 Straight Cath 375 / 375 Other: Meal Breakfast Percent of Meal Consumed 25% # Urine Diapers 1 Weight 93 kg Patient Weight 05/13/19 23:59 Weight 93 kg - Labs CBC & BMP: 05/13/19 09:55 05/13/19 01:12 Labs: Abnormal lab results WBC 12.9 K/mcL (4.3-11.1) H 05/12/19 05:55 RBC 2.79 M/mcL (4.19-5.50) L 05/13/19 01:12 Hgb 8.6 g/dL (12.9-16.9) L 05/13/19 09:55 Hct 26.5 % (37.5-50.1) L 05/13/19 09:55 Neutrophils # 11.0 K/mcL (1.6-8.9) H 05/12/19 05:55 Lymphocytes # 0.5 K/mcL (0.6-4.6) L 05/12/19 05:55 Monocytes # 1.5 K/mcL (0.0-1.3) H 05/13/19 01:12 BUN 33 mg/dL (8-23) H 05/13/19 01:12 Creatinine 2.23 mg/dL (0.70-1.30) H 05/13/19 01:12 Est GFR ( Amer) 34 (> 60) L 05/13/19 01:12 Est GFR (Non-Af Amer) 28 (> 60) L 05/13/19 01:12 Glucose 185 mg/dL (70-105) H 05/13/19 01:12 POC Glucose 149 mg/dL (70-99) H 05/10/19 12:32 Hemoglobin A1c 7.5 % (-5.6) H 05/10/19 05:12 Calcium 8.3 mg/dL (8.6-10.3) L 05/13/19 01:12 Crossmatch See Detail 05/10/19 07:23 Consult Discharge Plan - Plan Referrals: Nima Gipson Jr, MD [Primary Care Provider] - Prescriptions: Docusate [Colace] 100 mg PO BID 5 Days #10 capsule Ibuprofen [Motrin] 600 mg PO Q6HR PRN 7 Days #28 tab PRN Reason: Pain Acetaminophen [Pain Relief] 500 mg PO Q6H 7 Days #28 tablet OxyCODONE Immed Rel [Roxicodone 5 MG] 5 mg PO Q6HR PRN 5 Days #20 tablet PRN Reason: Severe Pain
[2019-05-13 18:38] LABS: Hematocrit 34.2 % (37.5-50.1); Hemoglobin 11.6 g/dL (12.9-16.9)
[2019-05-13] MEDS ORDERED: Acetaminophen IV 1,000 MG/100 ML INFUS..BTL IVPB ONE (20:03)
[2019-05-14 01:19] LABS: Hematocrit 33.1 % (37.5-50.1); Mean Corpuscular HGB Conc 33.2 g/dL (31.6-35.5); Mean Corpuscular Hemoglobin 31.2 pg (28.0-33.3); Mean Corpuscular Volume 93.8 fL (83.0-100.0); Mean Platelet Volume 11.5 fL (9.4-12.4); Platelet Count 203 K/mcL (140-400); Red Blood Count 3.53 M/mcL (4.19-5.50); Red Cell Distribution Width 13.7 % (11.5-14.5); White Blood Count 11.3 K/mcL (4.3-11.1)
[2019-05-14 01:35] LABS: Calcium 8.2 mg/dL (8.6-10.3); Potassium 3.9 mEq/L (3.5-5.1)
[2019-05-14] MEDS ORDERED: Acetaminophen IV 1,000 MG/100 ML INFUS..BTL IVPB ONE (01:50)
[2019-05-14] MEDS: Multivit/Ca/Min/Fe/FA 1 TAB TABLET PO SCH (09:01)
[2019-05-14] MEDS: Finasteride 5 MG TABLET PO SCH (09:02)
[2019-05-14] MEDS: Artificial Tears SOLN 15 ML BOTTLE BOTH EYES SCH ×5 (09:02→23:00)
[2019-05-14] MEDS: Fenofibrate 54 MG TABLET PO SCH (09:02)
[2019-05-14] MEDS: Ascorbic Acid 500 MG TABLET PO SCH ×2 (09:02→17:38)
[2019-05-14] MEDS: Furosemide 40 MG TABLET PO SCH (09:02)
[2019-05-14] MEDS: BESIFLOXACIN HCL OP SCH ×2 (09:03→20:00)
[2019-05-14] MEDS: PrednisoLONE Acetate 1% Opth 5 ML BOTTLE RIGHT EYE SCH ×3 (09:03→23:00)
[2019-05-14] MEDS: Tobramycin/Dex Opth DROPS 2.5 ML BOTTLE LEFT EYE SCH ×5 (09:03→23:00)
[2019-05-14] MEDS: (Bromfenac Sodium [Prolensa] 1 DROP) OP SCH ×2 (09:03→20:00)
[2019-05-14] MEDS: Leptospermum Honey Paste 44 ML TUBE TP SCH (09:03)
[2019-05-14] MEDS: Silvasorb 44.4 ML TUBE TP SCH (09:03)
[2019-05-14] MEDS: Acetaminophen 325 MG TABLET PO PRN ×2 (10:16→17:38)
[2019-05-14] MEDS: Carbidopa/Levodopa ER 50/200 TABLET PO SCH (12:16)
--- NOTE | 2019-05-14 14:30 | Internal Med Progress Note ---
Hospitalist Progress Note - Encounter Date of Encounter: 05/14/19 Time of Encounter: 13:00 - Subjective Interval History: Mr Pratt is currently admitted for hip fracture s/p FLORIDALMA. He remains moderate to high risk due to potential for worsening clinical status. Mr Pratt is more alert today. He just ate half his lunch and has been up to the chair. No fever or chills. No GI issues. - Exam Vitals: Temp Pulse Resp BP Pulse Ox 98.5 F 89 18 138/76 100 05/14/19 11:08 05/14/19 11:05/14/19 11:05/14/19 11:05/14/19 11:08 Exam: General: Much more alert today. Interactive today. Skin: No rash. H: Normocephalic. EENT: EOMI, Mucus membranes moist. Cardiovascular: Normal S1 & S2, Regular. No tachycardia. Lungs: Clear lungs today. No wheeze. Abdomen: Soft, non-tender, Extremities: S/P FLORIDALMA. Neurological: Normal cognition. Some stiffness. Pulses: radial pulses normal +2. Rest of the physical exam is non contributory - Assessment and Plan (1) Anemia Current Visit: Yes Status: Acute Assessment and Plan: Anemia related to acute blood loss from fracture. Improved after transfusion. (2) Fracture of femoral neck, right, closed Current Visit: Yes Status: Acute Assessment and Plan: Pt is currently admitted for acute R femoral fracture and is s/p FLORIDALMA Plan for discharge to SNF on . (3) CAD (coronary artery disease) Current Visit: Yes Status: Chronic Assessment and Plan: Chronic issue. No acute problems. (4) Parkinson disease Current Visit: Yes Status: Chronic Assessment and Plan: Continue home meds. Mental status improved - most likely related to anesthesia and Neurontin use (stopped yesterday). (5) CKD (chronic kidney disease) stage 4, GFR 15-29 ml/min Current Visit: Yes Status: Chronic Assessment and Plan: Avoid nephrotoxins as able Renal function slightly better today. (6) CHF (congestive heart failure) Current Visit: Yes Status: Chronic Assessment and Plan: Pt has reported hx of CHF but no echo in our records. - Time Spent with Patient Total time spent is greater than 50% in coordination of care (as documented) at patient's floor/unit and/or counseling patient: Internal Medicine: Result - Labs CBC & Chem 7: 05/14/19 01:00 05/14/19 01:00 Labs: Short CBC 05/13/19 05/14/19 Range/Units 18:29 01:00 WBC 11.3 H (4.3-11.1) K/mcL Hgb 11.6 L D 11.0 L (12.9-16.9) g/dL Hct 34.2 L 33.1 L (37.5-50.1) % Plt Count 203 (140-400) K/mcL BMP 05/14/19 01:00 Sodium 138 Potassium 3.9 Chloride 104 Carbon Dioxide 26 BUN 36 H Creatinine 2.12 H Glucose 176 H Calcium 8.2 L - ABG Interpretation ABG results: PT/INR, D-dimer PT 11.8 Seconds (9.4-12.1) 05/10/19 05:12 Consult Discharge Plan - Plan Referrals: Nima Gipson Jr, MD [Primary Care Provider] - Prescriptions: Docusate [Colace] 100 mg PO BID 5 Days #10 capsule Ibuprofen [Motrin] 600 mg PO Q6HR PRN 7 Days #28 tab PRN Reason: Pain Acetaminophen [Pain Relief] 500 mg PO Q6H 7 Days #28 tablet OxyCODONE Immed Rel [Roxicodone 5 MG] 5 mg PO Q6HR PRN 5 Days #20 tablet PRN Reason: Severe Pain (1) Anemia Qualifiers: Anemia type: other cause Other causes of anemia: acute posthemorrhagic Qualified Code(s): D62 - Acute posthemorrhagic anemia (2) Fracture of femoral neck, right, closed Qualifiers: Encounter type: subsequent encounter Fracture healing: with routine healing Qualified Code(s): S72.001D - Fracture of unspecified part of neck of right femur, subsequent encounter for closed fracture with routine healing (3) CAD (coronary artery disease) Qualifiers: Coronary Disease-Associated Artery/Lesion type: [place] artery [place] vs. transplanted heart: [place] heart Associated angina: without angina Qualified Code(s): I25.10 - Atherosclerotic heart disease of [place] coronary artery without angina pectoris (6) CHF (congestive heart failure) Qualifiers: Heart failure type: unspecified Heart failure chronicity: unspecified Qualified Code(s): I50.9 - Heart failure, unspecified
[2019-05-14] MEDS: HYDROcodone BIT/Homatropine 5 MG TABLET PO PRN (19:42)
--- NOTE | 2019-05-14 21:28 | Orthopedics Progress Note ---
Date of Encounter: 05/14/19 Time of Encounter: 09:15 Subjective Principal diagnosis: Status post total hip arthroplasty Interval history: The patient is without complaints. Afebrile vital signs are stable. Incision is clean dry and intact. Neurovascularly intact with regard to bilateral lower extremities. Assessment :stable. Plan mobilize ,continue analgesics, discharge planning. Hemodynamically stable. Objective Vital signs: Vital Signs Temp Pulse Resp BP Pulse Ox 05/14/19 19:01 97.7 F 90 16 112/73 100 05/14/19 15:31 98.8 F 95 18 119/70 99 05/14/19 11:08 98.5 F 89 18 138/76 100 05/14/19 06:37 97.8 F 71 16 115/73 100 05/14/19 04:07 98.4 F 80 20 113/68 100 05/13/19 22:10 98.0 F 74 20 98/60 99 Intake and Output 05/14/19 05/14/19 05/14/19 07:59 15:59 23:59 Intake Total 200 / 540 340 / 540 Output Total 420 / 1000 400 / 1000 180 / 1000 Balance -220 / -460 -60 / -460 -180 / -460 Intake: IV Fluids 200 / 200 Ofirmev 1,000 mg/100 ml 1,000 200 / 200 mg In 100 ml @ 400 mls/hr IVPB ONCE ONE Rx#:[id number] Oral 340 / 340 Output: Urine 420 / 1000 400 / 1000 180 / 1000 Other: Meal Lunch Percent of Meal Consumed 50% # Urine Diapers 1 1 Weight 93 kg Patient Weight 05/14/19 23:59 Weight 93 kg - Labs CBC & BMP: 05/14/19 01:00 05/14/19 01:00 Labs: Abnormal lab results WBC 11.3 K/mcL (4.3-11.1) H 05/14/19 01:00 RBC 3.53 M/mcL (4.19-5.50) L 05/14/19 01:00 Hgb 11.0 g/dL (12.9-16.9) L 05/14/19 01:00 Hct 33.1 % (37.5-50.1) L 05/14/19 01:00 Neutrophils # 11.0 K/mcL (1.6-8.9) H 05/12/19 05:55 Lymphocytes # 0.5 K/mcL (0.6-4.6) L 05/12/19 05:55 Monocytes # 1.5 K/mcL (0.0-1.3) H 05/13/19 01:12 BUN 36 mg/dL (8-23) H 05/14/19 01:00 Creatinine 2.12 mg/dL (0.70-1.30) H 05/14/19 01:00 Est GFR ( Amer) 36 (> 60) L 05/14/19 01:00 Est GFR (Non-Af Amer) 30 (> 60) L 05/14/19 01:00 Glucose 176 mg/dL (70-105) H 05/14/19 01:00 POC Glucose 149 mg/dL (70-99) H 05/10/19 12:32 Hemoglobin A1c 7.5 % (-5.6) H 05/10/19 05:12 Calcium 8.2 mg/dL (8.6-10.3) L 05/14/19 01:00 Crossmatch See Detail 05/10/19 07:23 Consult Discharge Plan - Plan Referrals: Nima Gipson Jr, MD [Primary Care Provider] - Prescriptions: Docusate [Colace] 100 mg PO BID 5 Days #10 capsule Ibuprofen [Motrin] 600 mg PO Q6HR PRN 7 Days #28 tab PRN Reason: Pain Acetaminophen [Pain Relief] 500 mg PO Q6H 7 Days #28 tablet OxyCODONE Immed Rel [Roxicodone 5 MG] 5 mg PO Q6HR PRN 5 Days #20 tablet PRN Reason: Severe Pain
[2019-05-15 06:07] LABS: Hematocrit 37.5 % (37.5-50.1); Hemoglobin 12.4 g/dL (12.9-16.9); Mean Corpuscular HGB Conc 33.1 g/dL (31.6-35.5); Mean Corpuscular Hemoglobin 31.6 pg (28.0-33.3); Mean Corpuscular Volume 95.7 fL (83.0-100.0); Mean Platelet Volume 11.2 fL (9.4-12.4); Platelet Count 286 K/mcL (140-400); Red Blood Count 3.92 M/mcL (4.19-5.50); Red Cell Distribution Width 13.9 % (11.5-14.5); White Blood Count 12.3 K/mcL (4.3-11.1)
[2019-05-15 06:30] LABS: Calcium 8.8 mg/dL (8.6-10.3); Magnesium 2.5 mg/dL (1.6-2.6)
--- NOTE | 2019-05-15 06:45 | Orthopedics Progress Note ---
Date of Encounter: 05/15/19 Time of Encounter: 06:45 Subjective Principal diagnosis: Status post total hip arthroplasty Interval history: Patient was seen this morning doing well without complaints. Afebrile vital signs stable. Operative extremity: Neurovascularly intact Dressing clean dry and intact Calves nontender Assessment and plan: Continue with postoperative care Family reports patient noncompliant with weightbearing as tolerated on the right lower extremity. This is impacting his rehabilitation, patient will be transferred to extended care facility tomorrow. Objective Vital signs: Vital Signs Temp Pulse Resp BP Pulse Ox 05/15/19 03:44 99.1 F 83 15 133/81 100 05/14/19 22:19 98.9 F 83 15 96/56 100 05/14/19 19:01 97.7 F 90 16 112/73 100 05/14/19 15:31 98.8 F 95 18 119/70 99 05/14/19 11:08 98.5 F 89 18 138/76 100 Intake and Output 05/14/19 05/14/19 05/15/19 15:59 23:59 07:59 Intake Total 340 / 540 Output Total 400 / 1000 180 / 1000 200 / 200 Balance -60 / -460 -180 / -460 -200 / -200 Intake: Oral 340 / 340 Output: Urine 400 / 1000 180 / 1000 200 / 200 Other: Meal Lunch Percent of Meal Consumed 50% # Urine Diapers 1 1 2 Weight 93.1 kg Patient Weight 05/15/19 23:59 Weight 93.1 kg - Labs CBC & BMP: 05/15/19 05:33 05/15/19 05:33 Labs: Abnormal lab results WBC 12.3 K/mcL (4.3-11.1) H 05/15/19 05:33 RBC 3.92 M/mcL (4.19-5.50) L 05/15/19 05:33 Hgb 12.4 g/dL (12.9-16.9) L 05/15/19 05:33 Hct 33.1 % (37.5-50.1) L 05/14/19 01:00 Neutrophils # 11.0 K/mcL (1.6-8.9) H 05/12/19 05:55 Lymphocytes # 0.5 K/mcL (0.6-4.6) L 05/12/19 05:55 Monocytes # 1.5 K/mcL (0.0-1.3) H 05/13/19 01:12 BUN 28 mg/dL (8-23) H 05/15/19 05:33 Creatinine 1.86 mg/dL (0.70-1.30) H 05/15/19 05:33 Est GFR ( Amer) 42 (> 60) L 05/15/19 05:33 Est GFR (Non-Af Amer) 35 (> 60) L 05/15/19 05:33 Glucose 178 mg/dL (70-105) H 05/15/19 05:33 POC Glucose 149 mg/dL (70-99) H 05/10/19 12:32 Hemoglobin A1c 7.5 % (-5.6) H 05/10/19 05:12 Calcium 8.2 mg/dL (8.6-10.3) L 05/14/19 01:00 Crossmatch See Detail 05/10/19 07:23 Consult Discharge Plan - Plan Referrals: Nima Gipson Jr, MD [Primary Care Provider] - Prescriptions: Docusate [Colace] 100 mg PO BID 5 Days #10 capsule Ibuprofen [Motrin] 600 mg PO Q6HR PRN 7 Days #28 tab PRN Reason: Pain Acetaminophen [Pain Relief] 500 mg PO Q6H 7 Days #28 tablet OxyCODONE Immed Rel [Roxicodone 5 MG] 5 mg PO Q6HR PRN 5 Days #20 tablet PRN Reason: Severe Pain
[2019-05-15] MEDS ORDERED: diazePAM 5 MG TABLET PO PRN (06:47)
[2019-05-15] MEDS: Acetaminophen 325 MG TABLET PO PRN ×2 (07:03→17:23)
--- NOTE | 2019-05-15 07:54 | Internal Med Progress Note ---
Hospitalist Progress Note - Encounter Date of Encounter: 05/15/19 Time of Encounter: 07:54 - Subjective Interval History: Mr. Pratt is an 84 y/o M who is s/p FLORIDALMA day 4. He has been slightly agitated lately as reported by daughter, but was calm while I was in room. Mr. Pratt complains of chills, coughing, and some pain in his right hip but he says it is better today. He denies SOB, wheezing, palpitations, or orthopnea. Mr. Pratt has not been ambulating well and needs help to get to the bathroom. Pt. has bowel movements normally but is having trouble urinating due to prostate issues. Pt. is waiting to be moved to SNF on 05/16, pt's daughter is bedside. - Exam Vitals: Temp Pulse Resp BP Pulse Ox 98.9 F 84 16 150/86 100 05/15/19 06:44 05/15/19 06:44 05/15/19 06:44 05/15/19 06:44 05/15/19 06:44 Exam: General: AOx2, pt. had some confusion Skin: No rash, warm and dry H: Normocephalic. Cardiovascular: RRR, S1 & S2, no m/r/g Lungs: CTA b/l no wheezing or crackles Abdomen: Soft, non-tender, bowel sounds present Extremities: S/P FLORIDALMA, sensation intact, no edema or swelling present Surgical site: Dressed, no erythema, some fluid on bandage. Neurological: Normal cognition. Some stiffness in right hip joint Pulses: radial pulses normal +2, all other pulses present. - Assessment and Plan (1) Fracture of femoral neck, right, closed Current Visit: Yes Status: Acute Assessment and Plan: Pt is currently admitted for acute R femoral fracture on 05/10 and is s/p FLORIDALMA on 05/11. Surgical site is dressed and has some fluid on bandage. PT. comlains of stiffness in right hip joint. Plan for discharge to SNF on 05/16. (2) Parkinson disease Current Visit: Yes Status: Chronic Assessment and Plan: Pt. continued on home medications. Neurotin stopped on 05/13. Mental status improved from this morning. (3) CAD (coronary artery disease) Current Visit: Yes Status: Chronic Assessment and Plan: Chronic issue. No acute problems. (4) Bilateral lower extremity edema Current Visit: Yes Status: Chronic Assessment and Plan: Edema not present on exam today. Pt. reports swelling has decreased, exam confirmed. Continue to follow for edema or swelling. (5) Anemia Current Visit: Yes Status: Resolved Assessment and Plan: Anemia related to acute blood loss from fracture. Improved after transfusion. (6) CKD (chronic kidney disease) stage 4, GFR 15-29 ml/min Current Visit: Yes Status: Chronic Assessment and Plan: Avoid nephrotoxins as able Renal function continues to improve. GFR was 35 today, increased from 05/14. (7) CHF (congestive heart failure) Current Visit: Yes Status: Chronic Assessment and Plan: Pt has reported hx of CHF but no echo in our records. - Time Spent with Patient Total time spent is greater than 50% in coordination of care (as documented) at patient's floor/unit and/or counseling patient: Internal Medicine: Result - Labs CBC & Chem 7: 05/15/19 05:33 05/15/19 05:33 Labs: Short CBC 05/15/19 Range/Units 05:33 WBC 12.3 H (4.3-11.1) K/mcL Hgb 12.4 L (12.9-16.9) g/dL Hct 37.5 (37.5-50.1) % Plt Count 286 (140-400) K/mcL BMP 05/15/19 05:33 Sodium 140 Potassium 4.0 Chloride 103 Carbon Dioxide 27 BUN 28 H Creatinine 1.86 H Glucose 178 H Calcium 8.8 - ABG Interpretation ABG results: PT/INR, D-dimer PT 11.8 Seconds (9.4-12.1) 05/10/19 05:12 Consult Discharge Plan - Plan Referrals: Nima Gipson Jr, MD [Primary Care Provider] - Prescriptions: Docusate [Colace] 100 mg PO BID 5 Days #10 capsule Ibuprofen [Motrin] 600 mg PO Q6HR PRN 7 Days #28 tab PRN Reason: Pain Acetaminophen [Pain Relief] 500 mg PO Q6H 7 Days #28 tablet OxyCODONE Immed Rel [Roxicodone 5 MG] 5 mg PO Q6HR PRN 5 Days #20 tablet PRN Reason: Severe Pain (1) Fracture of femoral neck, right, closed Qualifiers: Encounter type: subsequent encounter Fracture healing: with routine healing Qualified Code(s): S72.001D - Fracture of unspecified part of neck of right femur, subsequent encounter for closed fracture with routine healing (3) CAD (coronary artery disease) Qualifiers: Coronary Disease-Associated Artery/Lesion type: [place] artery [place] vs. transplanted heart: [place] heart Associated angina: without angina Qualified Code(s): I25.10 - Atherosclerotic heart disease of [place] coronary artery without angina pectoris (5) Anemia Qualifiers: Anemia type: other cause Other causes of anemia: acute posthemorrhagic Qualified Code(s): D62 - Acute posthemorrhagic anemia (7) CHF (congestive heart failure) Qualifiers: Heart failure type: unspecified Heart failure chronicity: unspecified Qualified Code(s): I50.9 - Heart failure, unspecified
[2019-05-15] MEDS: Fenofibrate 54 MG TABLET PO SCH (09:24)
[2019-05-15] MEDS: Ascorbic Acid 500 MG TABLET PO SCH ×2 (09:25→17:23)
[2019-05-15] MEDS: Furosemide 40 MG TABLET PO SCH (09:25)
[2019-05-15] MEDS: Multivit/Ca/Min/Fe/FA 1 TAB TABLET PO SCH (09:25)
[2019-05-15] MEDS: Tobramycin/Dex Opth DROPS 2.5 ML BOTTLE LEFT EYE SCH ×4 (09:26→20:58)
[2019-05-15] MEDS: Finasteride 5 MG TABLET PO SCH (09:26)
[2019-05-15] MEDS: Artificial Tears SOLN 15 ML BOTTLE BOTH EYES SCH ×4 (09:26→20:58)
[2019-05-15] MEDS: PrednisoLONE Acetate 1% Opth 5 ML BOTTLE RIGHT EYE SCH ×2 (09:26→20:59)
[2019-05-15] MEDS: BESIFLOXACIN HCL OP SCH (09:27)
[2019-05-15] MEDS: (Bromfenac Sodium [Prolensa] 1 DROP) OP SCH (09:27)
[2019-05-15] MEDS: Leptospermum Honey Paste 44 ML TUBE TP SCH (09:39)
[2019-05-15] MEDS: Silvasorb 44.4 ML TUBE TP SCH (09:39)
[2019-05-15] MEDS: traMADol 50 MG TABLET PO PRN (10:56)
[2019-05-15] MEDS ORDERED: HYDROcodone BIT/Homatropine 5 MG TABLET PO PRN (11:33)
[2019-05-15] MEDS: Carbidopa/Levodopa ER 50/200 TABLET PO SCH (12:27)
--- NOTE | 2019-05-15 12:58 | Event Note ---
Date of Encounter: 05/15/19 Time of Encounter: 12:10 PCR - POD#4 s/p right THR 05/11/19 Patient seen at bedside, without complaints. A&O x 3 Afebrile, vital signs stable. Dressings c/d/i (only small amount old bloody drainage noted), no calf tenderness to palpation, good dorsiflexion of foot, sensation intact distally. Labs reviewed. H/H - 12.4/37.5 stable, asymptomatic (received 2 units RBC transfusion 05/13) Kind[place] function managed by primary team. Pain control: adequate Participating in PT. Needs encouraged to be WBAT All questions and concerns addressed. Educated on use of incentive spirometer. Encouraged ambulation and proper hydration. Patient educated on post-operative restrictions and post-operative care. Assessment and plan: Continue with postoperative care Discharge plan: ECF, possibly tomorrow. per nurse [facility] computer system down today but shoulde be able to accept tomorrow
--- NOTE | 2019-05-15 13:27 | Discharge Summary ---
<Carlos Kolb Sudhakar - Last Filed: 05/15/19 15:03> - NOTES TO OUTPATIENT PROVIDER Notes to Outpatient Provider: Patient was admitted and treated for right hip fracture with total hip arthroplasty. Procedure was completed without incident, patient remained hospitalized for postsurgical care and rehabilitation. He will be transferred to rehabilitation facility in stable medical condition. Orders not resulted at time of discharge: Pending orders 05/11/19 18:03 Surgical Pathology [PTH] Routine 05/12/19 21:16 Culture,Blood [BC] Stat 05/15/19 11:31 Urinalysis Reflex Cult & Micro [URIN] Routine Date of Encounter: 05/15/19 Time of Encounter: 13:27 - Discharge Diagnosis (1) Fracture of femoral neck, right, closed Priority: Primary Status: Acute Qualifiers: Encounter type: subsequent encounter Fracture healing: with routine healing Qualified Code(s): S72.001D - Fracture of unspecified part of neck of right femur, subsequent encounter for closed fracture with routine healing (2) Parkinson disease Priority: Secondary Status: Chronic (3) CAD (coronary artery disease) Priority: Secondary Status: Chronic Qualifiers: Coronary Disease-Associated Artery/Lesion type: [place] artery [place] vs. transplanted heart: [place] heart Associated angina: without angina Qualified Code(s): I25.10 - Atherosclerotic heart disease of [place] coronary artery without angina pectoris (4) CKD (chronic kidney disease) stage 4, GFR 15-29 ml/min Priority: Secondary Status: Chronic Hospital course: Mr. Pratt is a 84 year old male with a past medical history of dementia, Parkinson's, hypertension, CAD status post [place], CKD4, BPH. He presented to the emergency department on 05/10/19 with right hip pain after fall. X-ray demons trated right-sided comminuted mildly displaced femoral neck fracture. Orthopedic surgery was consulted and patient was admitted to hospitalist service. Total hip arthroplasty of the right lower extremity was performed on 05/11/19 without incident. Patient was kept in the hospital and monitored for several days due to anemia secondary to acute blood loss, episodes of hypotension and altered mental status. His clinical disposition improved and he was recommended for transfer to intermediate facility. Transfer was delayed due to holiday at transfer was scheduled for 05/16/19. During his hospitalization his Parkinson's, hypertension, chronic kidney disease, coronary artery disease were all managed with home and Hospital medications without acute events. Patient will be transferred in stable medical condition for long-term inpatient rehabilitation and outpatient orthopedic follow-up. Discharge discussed with: patient, family, social work, case management - Time Spent with Patient Total time spent providing and/or coordinating discharge services: - Discharge Medications Prescriptions: New Docusate [Colace] 100 mg PO BID 5 Days #10 capsule Ibuprofen [Motrin] 600 mg PO Q6HR PRN 7 Days #28 tab PRN Reason: Pain Acetaminophen [Pain Relief] 500 mg PO Q6H 7 Days #28 tablet OxyCODONE Immed Rel [Roxicodone 5 MG] 5 mg PO Q6HR PRN 5 Days #20 tablet PRN Reason: Severe Pain Continued Simvastatin [Zocor] 40 mg PO HS Potassium Chloride [K-Tab ER] 20 meq PO BID Pantoprazole Sodium 40 mg PO DAILY Meloxicam [Mobic] 15 mg PO DAILY HYDROcodone/Acet 5/325 mg [[place] 5-325 mg] 1 tab PO BID PRN PRN Reason: Pain Furosemide [Lasix] 40 mg PO BID Finasteride [Proscar] 5 mg PO DAILY Fenofibric Acid (Choline) [Trilipix] 135 mg PO DAILY Cyclobenzaprine [Flexeril] 10 mg PO BID Carbidopa/Levodopa ER 50/200 [Sinemet ER 50-200 Tab] 1 tab PO BID Tamsulosin HCl [Flomax] 0.8 mg PO DAILY Besifloxacin HCl [Besivance] 1 drop RIGHT EYE BID Bromfenac Sodium [Prolensa] 1 drop RIGHT EYE BID Donepezil [Aricept] 10 mg PO HS PrednisoLONE Acetate 1% Opth [PredFORTE 1%] 1 drop RIGHT EYE BID Home Medications: Carbidopa/Levodopa ER 50/200 [Sinemet ER 50-200 Tab] 1 tab PO BID 04/16/16 [History] Cyclobenzaprine [Flexeril] 10 mg PO BID 04/16/16 [History] Fenofibric Acid (Choline) [Trilipix] 135 mg PO DAILY 04/16/16 [History] Finasteride [Proscar] 5 mg PO DAILY 04/16/16 [History] Furosemide [Lasix] 40 mg PO BID 04/16/16 [History] HYDROcodone/Acet 5/325 mg [[place] 5-325 mg] 1 tab PO BID PRN 04/16/16 [History] Meloxicam [Mobic] 15 mg PO DAILY 04/16/16 [History] Pantoprazole Sodium 40 mg PO DAILY 04/16/16 [History] Potassium Chloride [K-Tab ER] 20 meq PO BID 04/16/16 [History] Simvastatin [Zocor] 40 mg PO HS 04/16/16 [History] Tamsulosin HCl [Flomax] 0.8 mg PO DAILY 10/15/16 [History] Besifloxacin HCl [Besivance] 1 drop RIGHT EYE BID 05/10/19 [History] Bromfenac Sodium [Prolensa] 1 drop RIGHT EYE BID 05/10/19 [History] Donepezil [Aricept] 10 mg PO HS 05/10/19 [History] PrednisoLONE Acetate 1% Opth [PredFORTE 1%] 1 drop RIGHT EYE BID 05/10/19 [History] Acetaminophen [Pain Relief] 500 mg PO Q6H 7 Days #28 tablet 05/11/19 [Rx] Docusate [Colace] 100 mg PO BID 5 Days #10 capsule 05/11/19 [Rx] Ibuprofen [Motrin] 600 mg PO Q6HR PRN 7 Days #28 tab 05/11/19 [Rx] OxyCODONE Immed Rel [Roxicodone 5 MG] 5 mg PO Q6HR PRN 5 Days #20 tablet 05/11/19 [Rx] Allergies/Adverse Reactions: Allergy/AdvReac Type Severity Reaction Status Date / Time Penicillins AdvReac Swelling Verified 04/16/16 13:59 of Lip/Tongue/Throat Date of admission: 05/10/19 09:45 Primary care physician: Nima Gipson Jr, MD Consults: 05/10/19 05:24 Consult to Orthopedic Surgery [CONS] Stat Consulting Provider: [facility] Reason for Consult: right hip fracture Call Completed: Yes 05/10/19 06:57 Consult to Neurodiagnostic Technician [CONS] Routine Reason for SW Consult: DC planning 05/10/19 11:21 Consult to Wound Care [CONS] Routine Reason for Consult: pressure area to bottom, wounds to left lower leg Time Notified: 11:22 Call Completed: Yes 05/11/19 20:10 Consult to Nurse Navigator [CONS] Routine Comment: ortho navigator Consult to Nutrition [CONS] Routine Comment: Consulting Provider: NUTRITION Reason for Dietary Consult: Other Other:: Proper nutrition to facilitate wound healing Consult to Occupational Therapy [CONS] Routine Comment: Evaluate, develop and implement POC Reason for Consult: total hip replacement Does patient have active BEDREST order?: No Is patient medically & hemodynamically stable?: Yes Consult to Physical Therapy [CONS] Routine Comment: Evaluate, develop and implement POC Reason for Consult: total hip replacement Does patient have active BEDREST order?: No Is patient medically & hemodynamically stable?: Yes Consult to Neurodiagnostic Technician [CONS] Routine Reason for SW Consult: post op joint replacement RT Post Op Consult [CONS] Routine Discharging clinician: Carlos Kolb Anticipated date of discharge: 05/15/19 - Constitutional Vitals: Temp Pulse Resp BP Pulse Ox 98.2 F 189 99 136/78 100 05/15/19 11:30 05/15/19 11:30 05/15/19 11:30 05/15/19 11:30 05/15/19 06:44 Exam: General: Sitting up in chair eating breakfast Skin: No rash. Bandage over right hip clean/dry/intact H: Normocephalic. EENT: EOMI, Mucus membranes moist. Cardiovascular: Normal S1 & S2, Regular. No tachycardia. Lungs: Clear lungs today. No wheeze. Abdomen: Soft, non-tender, Extremities: S/P FLORIDALMA. Neurological: Normal cognition. Some stiffness. Pulses: radial pulses normal +2. Rest of the physical exam is non contributory - Patient Status Disposition: Transfer Inpatient Rehab Fac Condition: Fair Functional capacity at discharge: wheelchair bound Overall status at discharge: patient is not back to baseline - Discharge Instructions Follow Up With: Nima Gipson Jr, MD [Primary Care Provider] - - Diet and Activity Activity: as per physical therapy Diet: advance to your usual diet <Simeon Villa - Last Filed: 05/15/19 17:32> Orders not resulted at time of discharge: Pending orders 05/11/19 18:03 Surgical Pathology [PTH] Routine 05/12/19 21:16 Culture,Blood [BC] Stat 05/15/19 11:31 Urinalysis Reflex Cult & Micro [URIN] Routine Date of Encounter: 05/15/19 - Discharge Diagnosis (1) Anemia Status: Resolved Qualifiers: Anemia type: other cause Other causes of anemia: acute posthemorrhagic Qualified Code(s): D62 - Acute posthemorrhagic anemia (2) Fracture of femoral neck, right, closed Status: Acute Qualifiers: Encounter type: subsequent encounter Fracture healing: with routine healing Qualified Code(s): S72.001D - Fracture of unspecified part of neck of right femur, subsequent encounter for closed fracture with routine healing (3) CAD (coronary artery disease) Status: Chronic Qualifiers: Coronary Disease-Associated Artery/Lesion type: [place] artery [place] vs. transplanted heart: [place] heart Associated angina: without angina Qualified Code(s): I25.10 - Atherosclerotic heart disease of [place] coronary artery without angina pectoris (4) Parkinson disease Status: Chronic (5) CKD (chronic kidney disease) stage 4, GFR 15-29 ml/min Status: Chronic (6) CHF (congestive heart failure) Status: Chronic Qualifiers: Heart failure type: unspecified Heart failure chronicity: unspecified Qualified Code(s): I50.9 - Heart failure, unspecified Hospital course: Mr. Pratt is a 84 year old male - Time Spent with Patient Total time spent providing and/or coordinating discharge services: Date of admission: 05/10/19 09:45 Primary care physician: Nima Gipson Jr, MD Consults: 05/10/19 05:24 Consult to Orthopedic Surgery [CONS] Stat Consulting Provider: [facility] Reason for Consult: right hip fracture Call Completed: Yes 05/10/19 06:57 Consult to Neurodiagnostic Technician [CONS] Routine Reason for SW Consult: DC planning 05/10/19 11:21 Consult to Wound Care [CONS] Routine Reason for Consult: pressure area to bottom, wounds to left lower leg Time Notified: 11:22 Call Completed: Yes 05/11/19 20:10 Consult to Nurse Navigator [CONS] Routine Comment: ortho navigator Consult to Nutrition [CONS] Routine Comment: Consulting Provider: NUTRITION Reason for Dietary Consult: Other Other:: Proper nutrition to facilitate wound healing Consult to Occupational Therapy [CONS] Routine Comment: Evaluate, develop and implement POC Reason for Consult: total hip replacement Does patient have active BEDREST order?: No Is patient medically & hemodynamically stable?: Yes Consult to Physical Therapy [CONS] Routine Comment: Evaluate, develop and implement POC Reason for Consult: total hip replacement Does patient have active BEDREST order?: No Is patient medically & hemodynamically stable?: Yes Consult to Neurodiagnostic Technician [CONS] Routine Reason for SW Consult: post op joint replacement RT Post Op Consult [CONS] Routine - Constitutional Vitals: Temp Pulse Resp BP Pulse Ox 98.2 F 189 99 136/78 100 05/15/19 11:30 05/15/19 11:30 05/15/19 11:30 05/15/19 11:30 05/15/19 06:44 - Attending Attestation I examined this patient and my medical decision-making was reviewed with the Resident Physician on 05/15/19. I agree with the documented findings, disposition and treatment plan as described except to the extent set forth below. Mr Pratt has been admitted with acute R hip fracture and had FLORIDALMA. He was somnolent post op and had been placed on Neurontin by ortho. This was stopped with improvement. He had been transfused 2 units of blood. He is now afebrile and ready for discharge to SNF. He has had some urinary frequency and initial UA negative. Repeated today. Exam Alert. Comfortable Mucus membranes dry Heart not tachy No wheeze NC EOMI. Neck supple No tremor Plan D/C to SNF D/C time 35min
--- NOTE | 2019-05-15 15:46 | Physician Discharge Referral ---
[facility] Info [facility]: Allen Provider in Charge after Transfer: PCP Institutional Level of Care: Skilled - Diagnosis (1) Fracture of femoral neck, right, closed Priority: Primary Status: Acute (2) Parkinson disease Priority: Secondary Status: Chronic (3) CAD (coronary artery disease) Priority: Secondary Status: Chronic (4) CKD (chronic kidney disease) stage 4, GFR 15-29 ml/min Priority: Secondary Status: Chronic Prognosis: Good Aware of Diagnosis: Patient, Family Aware of Prognosis: Patient, Family - Transfer Medications Prescriptions: Docusate [Colace] 100 mg PO BID 5 Days #10 capsule Ibuprofen [Motrin] 600 mg PO Q6HR PRN 7 Days #28 tab PRN Reason: Pain Acetaminophen [Pain Relief] 500 mg PO Q6H 7 Days #28 tablet OxyCODONE Immed Rel [Roxicodone 5 MG] 5 mg PO Q6HR PRN 5 Days #20 tablet PRN Reason: Severe Pain Home Medications: Carbidopa/Levodopa ER 50/200 [Sinemet ER 50-200 Tab] 1 tab PO BID 04/16/16 [History] Cyclobenzaprine [Flexeril] 10 mg PO BID 04/16/16 [History] Fenofibric Acid (Choline) [Trilipix] 135 mg PO DAILY 04/16/16 [History] Finasteride [Proscar] 5 mg PO DAILY 04/16/16 [History] Furosemide [Lasix] 40 mg PO BID 04/16/16 [History] HYDROcodone/Acet 5/325 mg [[place] 5-325 mg] 1 tab PO BID PRN 04/16/16 [History] Meloxicam [Mobic] 15 mg PO DAILY 04/16/16 [History] Pantoprazole Sodium 40 mg PO DAILY 04/16/16 [History] Potassium Chloride [K-Tab ER] 20 meq PO BID 04/16/16 [History] Simvastatin [Zocor] 40 mg PO HS 04/16/16 [History] Tamsulosin HCl [Flomax] 0.8 mg PO DAILY 10/15/16 [History] Besifloxacin HCl [Besivance] 1 drop RIGHT EYE BID 05/10/19 [History] Bromfenac Sodium [Prolensa] 1 drop RIGHT EYE BID 05/10/19 [History] Donepezil [Aricept] 10 mg PO HS 05/10/19 [History] PrednisoLONE Acetate 1% Opth [PredFORTE 1%] 1 drop RIGHT EYE BID 05/10/19 [Hist ory] Acetaminophen [Pain Relief] 500 mg PO Q6H 7 Days #28 tablet 05/11/19 [Rx] Docusate [Colace] 100 mg PO BID 5 Days #10 capsule 05/11/19 [Rx] Ibuprofen [Motrin] 600 mg PO Q6HR PRN 7 Days #28 tab 05/11/19 [Rx] OxyCODONE Immed Rel [Roxicodone 5 MG] 5 mg PO Q6HR PRN 5 Days #20 tablet 05/11/19 [Rx] Allergies/Adverse Reactions: Allergy/AdvReac Type Severity Reaction Status Date / Time Penicillins AdvReac Swelling Verified 04/16/16 13:59 of Lip/Tongue/Throat - Respiratory Orders Oxygen / L per min (2L) Smoking Cessation: Smoking cessation has been advised. For more information, call the [place] Tobacco Quit Line at 7-619-JUTE-NOW. - Advance Directives Code Status: Full Code CERTIFICATION: I certify that the transfer of the above named patient to an Extended Care Facility is necessary for the continuing treatment of the diagnosis listed. The above information is true and accurate reflection of patient's current condition. Confidential - Redisclosure prohibited without a patient's written consent.
[2019-05-16] MEDS: Acetaminophen 325 MG TABLET PO PRN (04:48)
[2019-05-16 05:02] LABS: Bilirubin,Urine Negative (Negative); Blood,Urine Negative (Negative); Clarity,Urine Clear (Clear); Color,Urine Yellow (Yellow); Glucose,Urine (UA) Normal (Normal); Ketones,Urine Negative (Negative); Leukocyte Esterase,Urine Negative (Negative); Nitrite,Urine Negative (Negative); Protein,Urine 30 mg/dL (Neg-Trace); Specific Gravity,Urine 1.017 (1.010-1.025)
[2019-05-16 05:03] LABS: Bacteria,Urine None Seen per hpf (None-Few); Hyaline Casts,Urine None Seen per lpf (None-Few); RBC,Urine 0-3 per hpf (0-3); Squamous Epithelial Cell,Urine Moderate per lpf (None-Few); WBC,Urine 0-3 per hpf (0-3)
[2019-05-16 06:09] LABS: Basophils # 0.1 K/mcL (0.0-0.2); Basophils % 0.6 %; Eosinophils # 0.6 K/mcL (0.0-0.6); Eosinophils % 4.2 %; Hematocrit 36.4 % (37.5-50.1); Immature Granulocytes % 0.9 % (0-4); Lymphocytes # 1.3 K/mcL (0.6-4.6); Lymphocytes % 9.9 %; Mean Corpuscular Hemoglobin 30.9 pg (28.0-33.3); Mean Corpuscular Volume 93.8 fL (83.0-100.0); Mean Platelet Volume 11.1 fL (9.4-12.4); Monocytes # 1.6 K/mcL (0.0-1.3); Monocytes % 12.4 %; Neutrophils # 9.4 K/mcL (1.6-8.9); Platelet Count 312 K/mcL (140-400); Red Blood Count 3.88 M/mcL (4.19-5.50); Red Cell Distribution Width 13.8 % (11.5-14.5)
[2019-05-16 06:30] LABS: Calcium 8.7 mg/dL (8.6-10.3); Potassium 3.9 mEq/L (3.5-5.1)
[2019-05-16] MEDS: Fenofibrate 54 MG TABLET PO SCH (08:47)
[2019-05-16] MEDS: traMADol 50 MG TABLET PO PRN (08:48)
[2019-05-16] MEDS: Furosemide 40 MG TABLET PO SCH (08:48)
[2019-05-16] MEDS: Ascorbic Acid 500 MG TABLET PO SCH (08:48)
[2019-05-16] MEDS: Finasteride 5 MG TABLET PO SCH (08:48)
[2019-05-16] MEDS: Multivit/Ca/Min/Fe/FA 1 TAB TABLET PO SCH (08:50)
[2019-05-16] MEDS: Silvasorb 44.4 ML TUBE TP SCH (08:58)
[2019-05-16] MEDS: PrednisoLONE Acetate 1% Opth 5 ML BOTTLE RIGHT EYE SCH (08:58)
[2019-05-16] MEDS: Tobramycin/Dex Opth DROPS 2.5 ML BOTTLE LEFT EYE SCH ×2 (08:58→12:55)
[2019-05-16] MEDS: Artificial Tears SOLN 15 ML BOTTLE BOTH EYES SCH ×2 (08:58→12:56)
[2019-05-16] MEDS: Leptospermum Honey Paste 44 ML TUBE TP SCH (11:15)
--- NOTE | 2019-05-16 12:52 | Physician Discharge Referral ---
ExtendedCare Referral Info Provider in Charge after Transfer: PCP Institutional Level of Care: Skilled - Diagnosis (1) Fracture of femoral neck, right, closed Priority: Primary Status: Resolved (2) CAD (coronary artery disease) Priority: Secondary Status: Chronic (3) CKD (chronic kidney disease) stage 4, GFR 15-29 ml/min Priority: Secondary Status: Chronic (4) Parkinson disease Priority: Secondary Status: Chronic (5) Venous ulcer of right lower extremity without varicose veins Priority: Secondary Status: Chronic - Transfer Medications Prescriptions: Docusate [Colace] 100 mg PO BID 5 Days #10 capsule HYDROcodone/Acet 5/325 mg [[place] 5-325 mg] 0.5 tab PO BID 3 Days #3 tablet Acetaminophen [Pain Relief] 500 mg PO Q6H 7 Days #28 tablet Tramadol HCl [Ultram] 50 mg PO DAILY PRN 2 Days #2 tab PRN Reason: afternoon breakthrough pain Home Medications: Carbidopa/Levodopa ER 50/200 [Sinemet ER 50-200 Tab] 1 tab PO BID 04/16/16 [History] Cyclobenzaprine [Flexeril] 10 mg PO BID 04/16/16 [History] Fenofibric Acid (Choline) [Trilipix] 135 mg PO DAILY 04/16/16 [History] Finasteride [Proscar] 5 mg PO DAILY 04/16/16 [History] Furosemide [Lasix] 40 mg PO BID 04/16/16 [History] Meloxicam [Mobic] 15 mg PO DAILY 04/16/16 [History] Pantoprazole Sodium 40 mg PO DAILY 04/16/16 [History] Potassium Chloride [K-Tab ER] 20 meq PO BID 04/16/16 [History] Simvastatin [Zocor] 40 mg PO HS 04/16/16 [History] Tamsulosin HCl [Flomax] 0.8 mg PO DAILY 10/15/16 [History] Besifloxacin HCl [Besivance] 1 drop RIGHT EYE BID 05/10/19 [History] Bromfenac Sodium [Prolensa] 1 drop RIGHT EYE BID 05/10/19 [History] Donepezil [Aricept] 10 mg PO HS 05/10/19 [History] PrednisoLONE Acetate 1% Opth [PredFORTE 1%] 1 drop RIGHT EYE BID 05/10/19 [History] Acetaminophen [Pain Relief] 500 mg PO Q6H 7 Days #28 tablet 05/11/19 [Rx] Docusate [Colace] 100 mg PO BID 5 Days #10 capsule 05/11/19 [Rx] Acetaminophen [Tylenol] 650 mg PO Q6H PRN tablet 05/16/19 [Rx] HYDROcodone/Acet 5/325 mg [[place] 5-325 mg] 0.5 tab PO BID 3 Days #3 tablet 05/16/19 [Rx] Leptospermum Honey [Medihoney] 1 appl TP DAILY tube 05/16/19 [Rx] Lidocaine Patch [Lidoderm 5% patch] 1 each TP DAILY adh..patch 05/16/19 [Rx] Silvasorb 1 appl TP DAILY tube 05/16/19 [Rx] Tramadol HCl [Ultram] 50 mg PO DAILY PRN 2 Days #2 tab 05/16/19 [Rx] Allergies/Adverse Reactions: Allergy/AdvReac Type Severity Reaction Status Date / Time Penicillins AdvReac Swelling Verified 04/16/16 13:59 of Lip/Tongue/Throat - Respiratory Orders None Smoking Cessation: Smoking cessation has been advised. For more information, call the [place] Tobacco Quit Line at 8-577-VUID-NOW. - Lab Orders Lab Orders: CBC (in 3-5 days to confirm resolution of leukocytosis (13 on discharge) and confirm hgb stability (12 on discharge)), Other (include drug levels w/frequency) (BMP in 3-5 days to confirm stability of CKD (creat 1.92 on dc)) - Ancillary Orders May use pressure relief devices daily prn - Advance Directives Code Status: Full Code - Rehabiliation Orders Rehab Potential: Good Rehab Orders: ROM Exercises, Evaluation for Physical Therapy, Evaluation for Occupational Therapy - Treatments Skin tear care topically daily PRN per policy List/Other: blister to his left leg venous stasis ulcer and a wound on his buttock (ruptured blister)- local wound care venous blister to the left lower lateral calf - cleanse with dermal wound cleanser (CSS-Microklenz) - apply Medihoney paste to the blister - cover with adaptic gauze 2 layers - pad with 5x9 ABD - wrap with kerlix from toes to knee - wrap with 4" pricila bandage from toes to knee - changed daily and prn if soiled ruptured blister to the buttock- silvasorb topical daily - Diet Orders Regular CERTIFICATION: I certify that the transfer of the above named patient to an Extended Care Facility is necessary for the continuing treatment of the diagnosis listed. The above information is true and accurate reflection of patient's current condition. Confidential - Redisclosure prohibited without a patient's written consent.
[2019-05-16] MEDS: Carbidopa/Levodopa ER 50/200 TABLET PO SCH (12:55)
--- NOTE | 2019-05-16 13:50 | Internal Med Progress Note ---
<Carlos Kolb - Last Filed: 05/16/19 16:26> Hospitalist Progress Note - Encounter Date of Encounter: 05/16/19 Time of Encounter: 13:50 - Subjective Interval History: No acute events overnight. Shoulder x-ray and urinalysis were performed overnight for concerns raised by family, those were both without acute abnormality. Patient's daughters both had several concerns regarding discharged to fpc facility which were addressed. Plan for discharge today. - Exam Vitals: Temp Pulse Resp BP Pulse Ox 98.4 F 90 15 123/81 95 05/16/19 12:58 05/16/19 12:58 05/16/19 12:58 05/16/19 12:58 05/16/19 12:58 Exam: General: Sitting up in chair eating breakfast Skin: No rash. Bandage over right hip clean/dry/intact H: Normocephalic. EENT: EOMI, Mucus membranes moist. Cardiovascular: Normal S1 & S2, Regular. No tachycardia. Lungs: Lungs clear to auscultation bilaterally Abdomen: Soft, non-tender, Extremities: Motor and sensation intact in bilateral distal lower extremities Neurological: Alert and oriented to person and situation Pulses: radial pulses normal +2. 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 Physical therapy evaluated the patient and recommended fpc facility at discharge for additional rehabilitation Patient acceptably recovered from surgery, medically stable for discharge to fpc facility today (2) Parkinson disease Current Visit: No Status: Chronic Assessment and Plan: No acute issues, patient is at baseline mental status, home medication continued during hospitalization, continue home carbidopa levodopa at discharge (3) CAD (coronary artery disease) Current Visit: No Status: Chronic Assessment and Plan: Chronic, no acute issues during admission, home medications continued during hospitalization, continue at discharge (4) CKD (chronic kidney disease) stage 4, GFR 15-29 ml/min Current Visit: No Status: Chronic Assessment and Plan: Patient has baseline chronic kidney disease Baseline creatinine appears to be approximately 2 Creatinine has remained around baseline during hospitalization - Time Spent with Patient Total time spent is greater than 50% in coordination of care (as documented) at patient's floor/unit and/or counseling patient: Internal Medicine: Result - Labs CBC & Chem 7: 05/16/19 04:50 05/16/19 04:50 Labs: Short CBC 05/16/19 Range/Units 04:50 WBC 13.0 H (4.3-11.1) K/mcL Hgb 12.0 L (12.9-16.9) g/dL Hct 36.4 L (37.5-50.1) % Plt Count 312 (140-400) K/mcL Neutrophils # 9.4 H (1.6-8.9) K/mcL BMP 05/16/19 04:50 Sodium 139 Potassium 3.9 Chloride 104 Carbon Dioxide 25 BUN 28 H Creatinine 1.92 H Glucose 185 H Calcium 8.7 Urine 05/16/19 Range/Units 04:42 Urine Color Yellow (Yellow) Urine Clarity Clear (Clear) Urine pH 8.0 (5.0-8.0) pH Units Ur Specific [place] 1.017 (1.010-1.025) Urine Protein 30 H (Neg-Trace) mg/dL Urine Glucose (UA) Normal (Normal) mg/dL - ABG Interpretation ABG results: PT/INR, D-dimer PT 11.8 Seconds (9.4-12.1) 05/10/19 05:12 - Impressions Impressions Shoulder X-Ray 05/15/19 14:58 IMPRESSION: No acute fracture. D/ / Jenni Gonzalez Cha, MD / Jenni Gonzalez Cha, MD Interpreting Provider: Jenni Gonzalez Cha, MD Consult Discharge Plan - Plan Referrals: Juanita Navarro PAC [Physician Line Welder] - 05/24/19 10:00 am Nima Gipson Jr, MD [Primary Care Provider] - Prescriptions: Docusate [Colace] 100 mg PO BID 5 Days #10 capsule HYDROcodone/Acet 5/325 mg [[place] 5-325 mg] 0.5 tab PO BID 3 Days #3 tablet Acetaminophen [Pain Relief] 500 mg PO Q6H 7 Days #28 tablet Tramadol HCl [Ultram] 50 mg PO DAILY PRN 2 Days #2 tab PRN Reason: afternoon breakthrough pain <Sheryl Galloway - Last Filed: 05/16/19 17:23> Hospitalist Progress Note - Encounter Date of Encounter: 05/16/19 - Exam Vitals: Temp Pulse Resp BP Pulse Ox 98.6 F 100 17 125/73 98 05/16/19 16:16 05/16/19 16:16 05/16/19 16:16 05/16/19 16:16 05/16/19 16:16 - Assessment and Plan (1) Fracture of femoral neck, right, closed Current Visit: Yes Status: Resolved (2) CAD (coronary artery disease) Current Visit: No Status: Chronic (3) CKD (chronic kidney disease) stage 4, GFR 15-29 ml/min Current Visit: No Status: Chronic (4) Parkinson disease Current Visit: No Status: Chronic (5) Venous ulcer of right lower extremity without varicose veins Current Visit: No Status: Chronic - Time Spent with Patient Total time spent is greater than 50% in coordination of care (as documented) at patient's floor/unit and/or counseling patient: Internal Medicine: Result - Labs CBC & Chem 7: 05/16/19 04:50 05/16/19 04:50 Labs: Short CBC 05/16/19 Range/Units 04:50 WBC 13.0 H (4.3-11.1) K/mcL Hgb 12.0 L (12.9-16.9) g/dL Hct 36.4 L (37.5-50.1) % Plt Count 312 (140-400) K/mcL Neutrophils # 9.4 H (1.6-8.9) K/mcL BMP 05/16/19 04:50 Sodium 139 Potassium 3.9 Chloride 104 Carbon Dioxide 25 BUN 28 H Creatinine 1.92 H Glucose 185 H Calcium 8.7 Urine 05/16/19 Range/Units 04:42 Urine Color Yellow (Yellow) Urine Clarity Clear (Clear) Urine pH 8.0 (5.0-8.0) pH Units Ur Specific [place] 1.017 (1.010-1.025) Urine Protein 30 H (Neg-Trace) mg/dL Urine Glucose (UA) Normal (Normal) mg/dL - ABG Interpretation ABG results: PT/INR, D-dimer PT 11.8 Seconds (9.4-12.1) 05/10/19 05:12 - Impressions Impressions Shoulder X-Ray 05/15/19 14:58 IMPRESSION: No acute fracture. D/ / Jenni Gonzalez Cha, MD / Jenni Gonzalez Cha, MD Interpreting Provider: Jenni Gonzalez Cha, MD Head CT 05/16/19 13:16 IMPRESSION: 1. No acute intracranial abnormality. 2. Diffuse cerebral atrophy with chronic small vessel ischemic disease. D/ / Edy Claire MD / Edy Claire MD Interpreting Provider: Edy Claire MD - Attending Attestation I examined this patient and my medical decision-making was reviewed with the Resident Physician Dr Kolb. I agree with the documented findings, disposition and treatment plan as described except to the extent set forth mernao w. Mr Pratt has been admitted with acute R hip fracture and had FLORIDALMA. He was somnolent post op and had been placed on Neurontin by ortho. This was stopped with improvement. He had been transfused 2 units of blood. He has had some urinary frequency and UA negative. He had scrotal pain which has since resolved with normal scrotal exam day of dc. Family had concerns that no CT head was ever obtained this admission, I agree with them this is appropriate given his unwitnessed fall. CT head negative for acute findings. He remains medically stable for dc to snf today. pt awake, pleasant, denies pain. no sob or chest pain. no head or neck pain. no abd pain. scrotal pain is gone. reviewed urine studies. preformed scrotal exam with pt and family permission. discussed in long detail dc plan. reviewed all meds with family. and amongst his two daughters and myself prn and standing pain regimen that is minla but has breakthrough medication available was decided aupon with referral to snf/med rec updated. RENETTA faxing new document to snf gen- alert, awake,appears stated age eyes- pupils equal round cv- reg rate and rhythm, normal s1,s2 lungs- ctabl, no wheezing, rhonchi or crackles, normal resp effort gu- no scrotal edema, no pain to palpation, no masses abd- soft, non tender, non distended, + bs neuro- AAOxper son, place, situation, CN are grossly intact, generalized weakness without focal strength deficits Right femoral neck fracture s/p surgical intervention - dc to snf for rehab, outpt ortho fu Parkinson disease- cont home meds Dementia- at baseline further diagnoses and plan as noted by resident dc to snf see updated DC summary and SNF referral for updated med rec <Carlos Kolb - Last Filed: 05/16/19 16:26> (1) Fracture of femoral neck, right, closed Qualifiers: Encounter type: subsequent encounter Fracture healing: with routine healing Qualified Code(s): S72.001D - Fracture of unspecified part of neck of right femur, subsequent encounter for closed fracture with routine healing (3) CAD (coronary artery disease) Qualifiers: Coronary Disease-Associated Artery/Lesion type: [place] artery [place] vs. transplanted heart: [place] heart Associated angina: without angina Qualified Code(s): I25.10 - Atherosclerotic heart disease of [place] coronary artery without angina pectoris <Sheryl Galloway - Last Filed: 05/16/19 17:23> (1) Fracture of femoral neck, right, closed Qualifiers: Encounter type: subsequent encounter Fracture healing: with routine healing Qualified Code(s): S72.001D - Fracture of unspecified part of neck of right femur, subsequent encounter for closed fracture with routine healing (2) CAD (coronary artery disease) Qualifiers: Coronary Disease-Associated Artery/Lesion type: [place] artery [place] vs. transplanted heart: [place] heart Associated angina: without angina Qualified Code(s): I25.10 - Atherosclerotic heart disease of [place] coronary artery without angina pectoris
--- NOTE | 2019-05-16 16:14 | Orthopedics Progress Note ---
Date of Encounter: 05/16/19 Time of Encounter: 12:00 - Assessment and Plan (1) Status post total hip replacement, right Current Visit: Yes Status: Acute (2) Fracture of femoral neck, right, closed Current Visit: Yes Status: Resolved Qualifiers: Encounter type: subsequent encounter Fracture healing: with routine healing Qualified Code(s): S72.001D - Fracture of unspecified part of neck of right femur, subsequent encounter for closed fracture with routine healing Subjective Principal diagnosis: Status post total hip arthroplasty Interval history: PCR - POD#5 s/p right THR 05/11/19 Patient seen at bedside, without complaints. A&O x 3 Afebrile, vital signs stable. Dressings c/d/i (only small amount old bloody drainage noted), dressings to be changed today before he leaves, no calf tenderness to palpation, good dorsiflexion of foot, sensation intact distally. Labs reviewed. H/H - 12.0/36.4 stable, asymptomatic (received 2 units RBC transfusion 05/13) Kindey function managed by primary team. Pain control: adequate Participating in PT. Needs encouraged to be WBAT All questions and concerns addressed. Educated on use of incentive spirometer. Encouraged ambulation and proper hydration. Patient educated on post-operative restrictions and post-operative care. Assessment and plan: Continue with postoperative care Discharge plan: ECF, plan for today Objective Vital signs: Vital Signs Temp Pulse Resp BP Pulse Ox 05/16/19 12:58 98.4 F 90 15 123/81 95 05/16/19 12:29 99.3 F 99 17 137/77 99 05/16/19 08:03 99.6 F 92 16 137/73 97 05/15/19 23:20 99.2 F 85 16 117/72 96 05/15/19 18:50 98.7 F 93 15 124/77 97 Intake and Output 05/16/19 05/16/19 05/16/19 07:59 15:59 23:59 Intake Total 1030 / 1030 Output Total 100 / 550 450 / 550 Balance -100 / 480 580 / 480 Intake: Oral 1030 / 1030 Output: Urine 100 / 100 Catheter 450 / 450 Other: Meal Lunch Percent of Meal Consumed 50% Stool Size Moderate Stool Consistency soft # Urine Diapers 2 1 # Bowel Movements 1 Weight 93 kg Patient Weight 05/16/19 23:59 Weight 93 kg - Labs CBC & BMP: 05/16/19 04:50 05/16/19 04:50 Labs: Abnormal lab results WBC 13.0 K/mcL (4.3-11.1) H 05/16/19 04:50 RBC 3.88 M/mcL (4.19-5.50) L 05/16/19 04:50 Hgb 12.0 g/dL (12.9-16.9) L 05/16/19 04:50 Hct 36.4 % (37.5-50.1) L 05/16/19 04:50 Neutrophils # 9.4 K/mcL (1.6-8.9) H 05/16/19 04:50 Lymphocytes # 0.5 K/mcL (0.6-4.6) L 05/12/19 05:55 Monocytes # 1.6 K/mcL (0.0-1.3) H 05/16/19 04:50 BUN 28 mg/dL (8-23) H 05/16/19 04:50 Creatinine 1.92 mg/dL (0.70-1.30) H 05/16/19 04:50 Est GFR ( Amer) 41 (> 60) L 05/16/19 04:50 Est GFR (Non-Af Amer) 34 (> 60) L 05/16/19 04:50 Glucose 185 mg/dL (70-105) H 05/16/19 04:50 POC Glucose 149 mg/dL (70-99) H 05/10/19 12:32 Hemoglobin A1c 7.5 % (-5.6) H 05/10/19 05:12 Calcium 8.2 mg/dL (8.6-10.3) L 05/14/19 01:00 Urine Protein 30 mg/dL (Neg-Trace) H 05/16/19 04:42 Urine Urobilinogen 2.0 mg/dL (Normal) H 05/16/19 04:42 Ur Squamous Epith Cells Moderate per lpf (None-Few) H 05/16/19 04:42 Crossmatch See Detail 05/10/19 07:23 Consult Discharge Plan - Plan Referrals: Juanita Navarro PAC [Physician In Home Baby Sitter] - 05/24/19 10:00 am Nima Gipson Jr, MD [Primary Care Provider] - Prescriptions: Docusate [Colace] 100 mg PO BID 5 Days #10 capsule HYDROcodone/Acet 5/325 mg [[place] 5-325 mg] 0.5 tab PO BID 3 Days #3 tablet Acetaminophen [Pain Relief] 500 mg PO Q6H 7 Days #28 tablet Tramadol HCl [Ultram] 50 mg PO DAILY PRN 2 Days #2 tab PRN Reason: afternoon breakthrough pain
[2019-05-16 16:17] VITALS: BP 125/73
== END 2019-05-16 17:15 | DRG 470 ==
LOC: EMEROOARM 05:02 → CDU 05:02 → SUATTDRO 06:33 → CDU 07:49 → SUATTDRO 09:45 → 3NENU 17:41
PROVIDERS: ADMIT Internal Medicine; ATTEND Internal Medicine

== ENCOUNTER 2019-05-23 15:31 | Inpatient (IN) ==
[2019-05-23] MEDS ORDERED: Naloxone 0.4 MG/ML INJ IVP PRN (17:37)
[2019-05-23] MEDS ORDERED: Ondansetron 4 MG/2 ML VIAL IVP PRN (18:30)
[2019-05-23] MEDS ORDERED: Acetaminophen 325 MG TABLET PO PRN (18:30)
--- NOTE | 2019-05-23 18:57 | Internal Med History&Physical ---
Date of Encounter: 05/23/19 Time of Encounter: 18:00 Internal Medicine - H&P: HPI Chief complaint: Infected right hip s/p arthroplasty about a week ago History of present illness: Mr. Pratt is a 84 year old male with pmh o dementia, parkinsons disease,CAD s/p [place] presenting with complaints of having drainage from surgery site. Patient had a fall in late april and had a right hip total arthroplasty in early may. Patient has dementia so history was provided by his daughter. Per daughter, she says the longterm staff reports that patient dislodged his leg foam wedge by himself after which he w was noted to have drainage frokm the right hip and ortho was called. He has been seen by orthopedic surgery and is being admitted for a hip washout for excessive drainage. No other acute complaints Past Med Surg Social Fam HX - Past Medical History Medical history: arthritis, dementia, GERD, hyperlipidemia, myocardial infarction, renal disease Additional medical history: Blind in left eye, prostate disease, Parkinson's Psychiatric history: no psych history - Past Surgical History Surgical History: cholecystectomy Additional surgical history: back surgeries x3, right wrist repair. - Social History Smoking Status: Former smoker Smokeless Tobacco Status: Yes (chewing tobacco) Alcohol use: none Drug use: none - Family History Daughter Name: Chastity Hicks Age: 50 Family Member Ethnicity: Non- Living Status: Still Living Hx Family Cardiac Disorders: No Hx Family Respiratory Disorders: No Hx Family Cancer: No Hx Family GI Disorders: No Hx Family Genitourinary Disorders: No Hx Family Endocrine Disorder: No Hx Family Musculoskeletal Disorders: No Hx Family Neuromuscular Disorders: No Hx Family Neurologic Disorders: No Hx Family HEENT Disorders: No Hx Family Autoimmune Disorders: No Hx Family Reproductive Disorders: No Hx Family Psychosocial Disorders: No Hx Family Medical Disorders: No Mother Living Status: Hx Family Respiratory Disorders: Yes (COPD) Hx Family Endocrine Disorder: Yes Internal Medicine - H&P: Meds Carbidopa/Levodopa ER 50/200 [Sinemet ER 50-200 Tab] 1 tab PO BID 04/16/16 [History] Cyclobenzaprine [Flexeril] 10 mg PO BID 04/16/16 [History] Fenofibric Acid (Choline) [Trilipix] 135 mg PO DAILY 04/16/16 [History] Finasteride [Proscar] 5 mg PO DAILY 04/16/16 [History] Furosemide [Lasix] 40 mg PO BID 04/16/16 [History] Meloxicam [Mobic] 15 mg PO DAILY 04/16/16 [History] Pantoprazole Sodium 40 mg PO DAILY 04/16/16 [History] Potassium Chloride [K-Tab ER] 20 meq PO BID 04/16/16 [History] Simvastatin [Zocor] 40 mg PO HS 04/16/16 [History] Tamsulosin HCl [Flomax] 0.8 mg PO DAILY 10/15/16 [History] Besifloxacin HCl [Besivance] 1 drop RIGHT EYE BID 05/10/19 [History] Bromfenac Sodium [Prolensa] 1 drop RIGHT EYE BID 05/10/19 [History] Donepezil [Aricept] 10 mg PO HS 05/10/19 [History] PrednisoLONE Acetate 1% Opth [PredFORTE 1%] 1 drop RIGHT EYE BID 05/10/19 [History] Acetaminophen [Pain Relief] 500 mg PO Q6H 7 Days #28 tablet 05/11/19 [Rx] Docusate [Colace] 100 mg PO BID 5 Days #10 capsule 05/11/19 [Rx] Acetaminophen [Tylenol] 650 mg PO Q6H PRN tablet 05/16/19 [Rx] HYDROcodone/Acet 5/325 mg [[place] 5-325 mg] 0.5 tab PO BID 3 Days #3 tablet 05/16/19 [Rx] Leptospermum Honey [Medihoney] 1 appl TP DAILY tube 05/16/19 [Rx] Lidocaine Patch [Lidoderm 5% patch] 1 each TP DAILY adh..patch 05/16/19 [Rx] Silvasorb 1 appl TP DAILY tube 05/16/19 [Rx] Tramadol HCl [Ultram] 50 mg PO DAILY PRN 2 Days #2 tab 05/16/19 [Rx] Allergy/AdvReac Type Severity Reaction Status Date / Time Penicillins AdvReac Swelling Verified 04/16/16 13:59 of Lip/Tongue/Throat ROS unobtainable: due to mental status All Systems PM: A 10-system review of systems was performed and is negative for pertinent findings except as documented above in the HPI. - Constitutional Exam: Has dementia Wound pump in place in right hip - Head Head exam: Present: atraumatic, normocephalic - Eye Eye exam: Present: PERRL, conjuntiva pink, sclera anicteric Pupils: Present: PERRL - Neck Neck exam general surgery: Present: supple, trachea midline. Absent: lymphadenopathy - Respiratory Respiratory exam: Present: CTAB. Absent: accessory muscle use, rales, rhonchi, wheezes - Cardiovascular Cardiovascular exam: Present: RRR, +S1, +S2. Absent: diastolic murmur, gallop, rubs, systolic murmur - GI/Abdominal GI/Abdominal exam: Present: normal bowel sounds, soft, no peritoneal signs. Absent: distended, tenderness - Extremities Exam Extremities exam: Present: warm, radial pulses palpable and symmetrical. Absent: calf tenderness, cyanotic, pedal edema - Neurological Exam Neurological exam: Present: CN II-XII intact, oriented X3, no focal deficits. Absent: pronater drift, facial droop, speech deficit - Skin Skin exam: Present: dry, intact - Assessment and Plan (1) Status post total hip replacement, right Current Visit: Yes Status: Acute Assessment and plan: Pt is s/p right hip arthroplsty with drainage and concern for infection Seen by ortho and plan for washout in am (2) CAD (coronary artery disease) Current Visit: Yes Status: Chronic Assessment and plan: Resume home meds Qualifiers: Coronary Disease-Associated Artery/Lesion type: [place] artery [place] vs. transplanted heart: [place] heart Associated angina: without angina Qualified Code(s): I25.10 - Atherosclerotic heart disease of [place] coronary artery with out angina pectoris (3) Parkinson disease Current Visit: Yes Status: Chronic Assessment and plan: Resume home meds (4) DVT prophylaxis Current Visit: Yes Status: Acute Assessment and plan: Heparin sc - Time Spent With Patient Total time spent is greater than 50% in coordination of care (as documented) at patient's floor/unit and/or counseling patient:
[2019-05-23] MEDS: *HR* OxyCODONE/APAP 5/325 TABLET PO PRN (19:25)
[2019-05-23] MEDS ORDERED: BESIFLOXACIN HCL RIGHT EYE SCH (21:00)
[2019-05-23] MEDS ORDERED: BROMFENAC SODIUM RIGHT EYE SCH (21:00)
[2019-05-23] MEDS: Carbidopa/Levodopa ER 50/200 TABLET PO SCH (21:14)
[2019-05-23] MEDS: *HR* Heparin 5,000 UNIT/ML VIAL SQ SCH (21:15)
[2019-05-23] MEDS ORDERED: Acetaminophen IV 1,000 MG/100 ML INFUS..BTL IVPB ONE (22:48)
[2019-05-23] MEDS: PrednisoLONE Acetate 1% Opth 5 ML BOTTLE RIGHT EYE SCH (23:41)
[2019-05-24 00:42] LABS: Albumin 2.8 g/dL (3.5-5.7); Albumin/Globulin Ratio 0.7 (1.1-2.2); Bilirubin,Total 0.7 mg/dL (0.3-1.0); Calcium 8.3 mg/dL (8.6-10.3); Globulin 3.9 g/dL (2.4-3.5); Total Protein 6.7 g/dL (6.4-8.9)
[2019-05-24 00:53] LABS: Basophils # 0.1 K/mcL (0.0-0.2); Basophils % 0.5 %; Eosinophils # 0.5 K/mcL (0.0-0.6); Eosinophils % 2.6 %; Hematocrit 36.9 % (37.5-50.1); Hemoglobin 11.8 g/dL (12.9-16.9); Immature Granulocytes % 0.8 % (0-4); Lymphocytes # 1.3 K/mcL (0.6-4.6); Lymphocytes % 6.8 %; Mean Corpuscular Hemoglobin 30.8 pg (28.0-33.3); Mean Corpuscular Volume 96.3 fL (83.0-100.0); Mean Platelet Volume 11.1 fL (9.4-12.4); Monocytes # 1.5 K/mcL (0.0-1.3); Monocytes % 7.7 %; Neutrophils # 15.5 K/mcL (1.6-8.9); Platelet Count 519 K/mcL (140-400); Red Blood Count 3.83 M/mcL (4.19-5.50); Red Cell Distribution Width 14.2 % (11.5-14.5); Segmented Neutrophils % 81.6 %
[2019-05-24] MEDS: *HR* OxyCODONE/APAP 5/325 TABLET PO PRN (02:42)
[2019-05-24 04:02] LABS: Magnesium 2.6 mg/dL (1.6-2.6); Phosphorous 2.9 mg/dL (2.7-4.5)
[2019-05-24] MEDS: *HR* Heparin 5,000 UNIT/ML VIAL SQ SCH (05:19)
--- NOTE | 2019-05-24 05:53 | Event Note ---
Date of Encounter: 05/23/19 Time of Encounter: 21:58 Alerted by pts. nurse CHRISSY Alcazar that the patient's daughters were concerned about the pts. pain. Nurse reported that the pt. had Percocet @19:25 and Flexeril @21:14. Daughters were requesting something stronger to manage his pain. I requested fresh VS which were 110/68 BP, temp 98.6, 85 HR, 16 RR, and 96% SpO2. Went to see the pt. who was resting in bed with two daughters present. I discussed the pts. BP and how I was going to order IVPB Ofirmev for systemic pain relief d/t pts. hypotension. I also discussed stat blood cultures and wound cultures to stay on top of the infection so it did not become sepsis criteria. Lactic acid ordered which returned at 1.2. Wound Care consult and daily wound care also ordered. Labs ordered for the a.m. but no current labs available, so timing changed to now. WBC returned at 19.0, Hgb 11.8, BUN 51, creatinine 1.98, GFR 33, glucose 200. Calcium mildly low at 8.3. BG checks Q6HR d/t hyperglycemia and NPO status. Daughters agreed to plan and all questions were addressed and answered. Nurse made aware of the plan and instructed to continue monitoring the patient closely and alert me immediately of any adverse changes or signs of worsening infection.
[2019-05-24] MEDS ORDERED: Cefepime HCl 1,000 MG in Water for inj. (sterile) 10 ML IVP SCH (07:57)
[2019-05-24] MEDS ORDERED: Acetaminophen IV 1,000 MG/100 ML INFUS..BTL IVPB PRN (08:04)
--- NOTE | 2019-05-24 08:05 | Internal Med Progress Note ---
Hospitalist Progress Note - Encounter Date of Encounter: 05/24/19 Time of Encounter: 10:00 - Subjective Interval History: No acute events overnight - Exam Vitals: Temp Pulse Resp BP Pulse Ox 98.4 F 86 16 140/72 97 05/24/19 06:21 05/24/19 06:21 05/24/19 06:21 05/24/19 06:21 05/24/19 06:21 Exam: Gen. Alert. Has dementia CVS. S1 S2 WNL Resp. CTAB GI. 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 GCs 15/15 - Assessment and Plan (1) Status post total hip replacement, right Current Visit: Yes Status: Acute Assessment and Plan: Pt is s/p right hip arthroplsty with drainage and concern for infection Seen by ortho and plan for washout today. Wound pump in place [facility] goals of care. Family want palliative care involved due to chronic thierno n and dementia and recent multiple hospital visits (2) Leukocytosis Current Visit: Yes Status: Acute Assessment and Plan: Query infection. Obtain cultures. Start empirically on cefepime D/C cefepime if cultures are negative (3) CAD (coronary artery disease) Current Visit: Yes Status: Chronic Assessment and Plan: Resume home meds (4) Parkinson disease Current Visit: Yes Status: Chronic Assessment and Plan: Resume home meds (5) DVT prophylaxis Current Visit: Yes Status: Acute Assessment and Plan: Heparin sc - Time Spent with Patient Total time spent is greater than 50% in coordination of care (as documented) at patient's floor/unit and/or counseling patient: Internal Medicine: Result - Labs CBC & Chem 7: 05/24/19 00:11 05/24/19 00:11 Labs: Short CBC 05/24/19 Range/Units 00:11 WBC 19.0 H (4.3-11.1) K/mcL Hgb 11.8 L (12.9-16.9) g/dL Hct 36.9 L (37.5-50.1) % Plt Count 519 H (140-400) K/mcL Neutrophils # 15.5 H (1.6-8.9) K/mcL BMP 05/24/19 00:11 Sodium 145 Potassium 4.0 Chloride 114 H Carbon Dioxide 22 L BUN 51 H Creatinine 1.98 H Glucose 200 H Calcium 8.3 L Liver Function 05/24/19 Range/Units 00:11 Total Bilirubin 0.7 (0.3-1.0) mg/dL AST 29 (13-39) Units/L ALT 3 L (7-52) Units/L Alkaline Phosphatase 89 (34-104) Units/L Albumin 2.8 L (3.5-5.7) g/dL Consult Discharge Plan - Plan Referrals: NONE,PCP [Primary Care Provider] - (2) Leukocytosis Qualifiers: Qualified Code(s): D72.829 - Elevated white blood cell count, unspecified (3) CAD (coronary artery disease) Qualifiers: Coronary Disease-Associated Artery/Lesion type: [place] artery [place] vs. transplanted heart: [place] heart Associated angina: without angina Qualified Code(s): I25.10 - Atherosclerotic heart disease of [place] coronary artery without angina pectoris
[2019-05-24] MEDS ORDERED: Leptospermum Honey Gel 44 ML TUBE TP SCH (09:00)
[2019-05-24] MEDS ORDERED: Silvasorb 44.4 ML TUBE TP SCH (09:00)
[2019-05-24] MEDS ORDERED: Finasteride 5 MG TABLET PO SCH (09:00)
[2019-05-24] MEDS: Carbidopa/Levodopa ER 50/200 TABLET PO SCH ×2 (09:21→21:46)
[2019-05-24] MEDS: PrednisoLONE Acetate 1% Opth 5 ML BOTTLE RIGHT EYE SCH (09:50)
[2019-05-24] MEDS ORDERED: Dexamethasone 4 MG/ML VIAL ONE (15:06)
[2019-05-24] MEDS ORDERED: Lidocaine -MPF 2% 2 ML VIAL ONE (15:06)
[2019-05-24] MEDS ORDERED: *HR* Succinylcholine 200 MG/10 ML VIAL IVP ONE (15:06)
[2019-05-24] MEDS ORDERED: Lidocaine HCL 4 ML Topical Solution (Laryng-O-Jet Kit Sterile Pak) TP ONE (15:06)
[2019-05-24] MEDS ORDERED: *HR* Propofol 200 MG/20 ML VIAL IVP ONE ×2 (15:06→15:10)
[2019-05-24] MEDS ORDERED: Ondansetron 4 MG/2 ML VIAL ONE (15:06)
[2019-05-24] MEDS ORDERED: *HR* FentaNYL (PF) 100 MCG/2 ML VIAL ONE (15:06)
--- NOTE | 2019-05-24 15:12 | Anesthesia Evaluation PreOp ---
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 L-eye Blindness. 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) Anesthesia History: No Prior Anesthetic Complications, Past Anesthesia (R-THR 05/11/2019, Back surgery x 3, R-wrist repair) Alcohol Use: none Drug use: none Medications and Allergies Carbidopa/Levodopa ER 50/200 [Sinemet ER 50-200 Tab] 1 tab PO BID 04/16/16 [History] Cyclobenzaprine [Flexeril] 10 mg PO BID 04/16/16 [History] Fenofibric Acid (Choline) [Trilipix] 135 mg PO DAILY 04/16/16 [History] Finasteride [Proscar] 5 mg PO DAILY 04/16/16 [History] Furosemide [Lasix] 40 mg PO BID 04/16/16 [History] Meloxicam [Mobic] 15 mg PO DAILY 04/16/16 [History] Pantoprazole Sodium 40 mg PO DAILY 04/16/16 [History] Potassium Chloride [K-Tab ER] 20 meq PO BID 04/16/16 [History] Simvastatin [Zocor] 40 mg PO HS 04/16/16 [History] Tamsulosin HCl [Flomax] 0.8 mg PO DAILY 10/15/16 [History] Donepezil [Aricept] 10 mg PO HS 05/10/19 [History] Acetaminophen [Pain Relief] 500 mg PO Q6H 7 Days #28 tablet 05/11/19 [Rx] Docusate [Colace] 100 mg PO BID 5 Days #10 capsule 05/11/19 [Rx] Acetaminophen [Tylenol] 650 mg PO Q6H PRN tablet 05/16/19 [Rx] HYDROcodone/Acet 5/325 mg [[place] 5-325 mg] 0.5 tab PO BID 3 Days #3 tablet 05/16/19 [Rx] Leptospermum Honey [Medihoney] 1 appl TP DAILY tube 05/16/19 [Rx] Lidocaine Patch [Lidoderm 5% patch] 1 each TP DAILY adh..patch 05/16/19 [Rx] Silvasorb 1 appl TP DAILY tube 05/16/19 [Rx] Tramadol HCl [Ultram] 50 mg PO DAILY PRN 2 Days #2 tab 05/16/19 [Rx] Allergy/AdvReac Type Severity Reaction Status Date / Time Penicillins AdvReac Swelling Verified 05/23/19 21:35 of Lip/Tongue/Throat - Meds/Allergy Pre-op Review Medications Reviewed: Yes Allergies Reviewed: Yes Beta Blockers on Current Med List: No Anesthesia Results - Labs 05/24/19 00:11 05/24/19 00:11 Laboratory Results Laboratory Tests 05/21/19 05/24/19 04:40 00:11 Est Mean Plasma Glucose 157 Hemoglobin A1c 7.1 H Calcium 8.3 L - Imaging EKG: report reviewed (83bpm - Sinus rhythm Nonspecific IVCD with LAD Probable anterolateral infarct, old Baseline wander in lead(s) V5 POOR R WAVE PROGRESSION Electronically Signed On 05-13-2019 0:05:16 EDT by Elena Vazquez) Additional studies: Hip XR 05/23/2019 XR/XR hip complete RT IMPRESSION: Stable right hip post arthroplasty. Mild increased lateral displacement of the greater trochanter fracture. Persistent soft tissue gas in the soft tissues and in the joint space. Anesthesia Exam Vital Signs Temp Pulse Resp BP Pulse Ox 05/24/19 06:21 98.4 F 86 16 140/72 97 05/24/19 03:29 98.8 F 89 16 118/74 98 05/24/19 00:32 98.5 F 91 18 112/67 96 05/24/19 00:15 86 102/65 05/24/19 00:00 85 101/64 05/23/19 23:45 85 100/63 05/23/19 22:20 98.6 F 85 16 110/68 96 05/23/19 21:14 96 Intake and Output 05/23/19 05/24/19 05/24/19 23:59 07:59 15:59 Intake Total 100 / 100 0 / 110 110 / 110 Output Total 230 / 230 Balance -130 / -130 0 / 110 110 / 110 Intake: IV Fluids 100 / 100 110 / 110 Maxipime 1,000 MG In Water for 10 / 10 inj. (sterile) 10 ML @ 300 mls/ hr IVP Q12HR MICHAEL Rx#:[id number] Ofirmev 1,000 mg/100 ml 1,000 100 / 100 100 / 100 mg In 100 ml @ 400 mls/hr IVPB Q6HR PRN Rx#:[id number] Oral 0 / 0 Output: Urine 230 / 230 Other: Stool Size Large Small Stool Consistency soft soft formed Stool Color Brown # Urine Diapers 1 # Bowel Movements 1 # Bowel Movement Diapers 1 Weight 79 kg Blood Glucose* 173 157 Height: 5'6" Weight: 174# BMI = 28 NPO (# of Hours): MNOc - HEENT Pupil (Motor): Pupils equal, EOMI Mallampati: II Teeth: Edentulous Oral Opening: Greater than 3 - ICE CREAM VAN VENDOR LOC: Disoriented (intermittently conversational but difficult to understand) ICE CREAM VAN VENDOR Motor: Normal RUE, Normal LUE, Normal LLE, Normal Face, Deficit RLE ICE CREAM VAN VENDOR Sensory: Normal: RUE, LUE, LLE, Face, Deficit: RLE - Cardiac Rhythm: Regular Murmur: None - Pulmonary Breath Sounds: bilateral Clear Respiratory Effort: Symmetrical Anesthesia Assess/Plan ASA Score: 4 (Parkinsonsism, Dementia, CHF, Stage 3-4 CKDz) Level of consciousness: Drowsy, but responsive to commands Anesthetic Plan: General Monitoring Plan: Standard Monitors Recovery Plan: PACU Anes Supervising Prov Stmt: Pt seen/evaluated, R&B Discussed, questions answered and consent obtained. Elma Benavidez MD
[2019-05-24] MEDS ORDERED: Clindamycin 900 MG/50 ML 900 MG/50 ML IV.SOLN IVPB ONE ×2 (15:47→15:54)
[2019-05-24] MEDS ORDERED: Ethanol\\Acetic Acid\\Na Ace\\Ben 1,000 ML IRRIG.SOLN IR ONE ×2 (15:55)
[2019-05-24] MEDS ORDERED: Acetaminophen IV 1,000 MG/100 ML INFUS..BTL ONE (15:57)
--- NOTE | 2019-05-24 16:00 | Palliative - Consult Note ---
Date of Encounter: 05/24/19 Time of Encounter: 16:00 - Assessment and Plan (1) Right hip pain Current Visit: Yes Status: Acute Assessment and plan: Patient currently prescribed Percocet 5/325 every 6 hours PRN, and IV Ofirmev. Family at bedside states his pain has been fairly well controlled today. He has been taken to OR and will revisit this in am. (2) Advance care planning Current Visit: Yes Status: Acute Assessment and plan: 90 min meeting with patient's 2 daughter, Chastity Linares who resides in [place]. Daughters describe their father as "75 % " independent prior to hip fracture and states that he was at assisted living at [facility], able to ambulate with rollator, and do ADL with assistance. States that after hip surgery, did take a while for him to "come around", but by discharge, was able to eat regular food, and was verbalizing needs. Daughters very distressed regarding his care at rehab and have met with administrators at that facility and investigating other options for his care. During my visit, they did come to take patient to OR, daughter Chastity left with patient in case they needed her for any authorization, Simeon asked that I stay and continue to discuss care issues. Discussed code status, as he is currently a DNR-Arrest, and discussed DNR [place] law at length with her, and provide written information. She states that she and Chastity will review information tonight and will revisit in am. She believes that they will likely try and give him another chance at rehab, but that if he is not able to participate, is not able to tolerate, or has another medical event, may transition to hospice care. Discussed that he could have hospice at facility or home, as daughter has considered taking him home if no other options. Galina JACKSON has also been working closely with family. Will revisit patient and daughters tomorrow am and further discuss. (3) Palliative care encounter Current Visit: Yes Status: Acute (4) Parkinson disease Current Visit: Yes Status: Chronic (5) Status post total hip replacement, right Current Visit: Yes Status: Acute Assessment and plan: TO OR per Ortho for washout of right hip today. Palliative-CN HPI - Data of Consult Requesting Physician: Rogelio Paredes Primary Care Provider: PCP NONE - Consult Narrative History of present illness: Mr. Pratt is a 84 year old male with a history of Parkinson's disease, dementia, PR, CKD, GERD, who has a recent right hip fracture and s/p arthroplasty here at [facility]. He was discharged to [facility] for rehab, and had increasing drainage and right hip pain to the point he was crying at the ECF. He was found to have WBC 14166. Evaluated by Ortho and is scheduled for right hip washout this afternoon. He is mostly nonverbal at present and oriented to name only. Daughters Chastity and Simeon are at the bedside. Vitals signs stable. Patient has had increasing pain and daughters have expressed concern that pain is not being managed. By chart review, they have been concerned regarding his labile blood pressures. IV Ofirmev was added last pm and daughter feel this was helpful. Family has expressed concerns regarding quality of life and do not want him to suffer with pain and distress. Palliative care was consulted to assist with goals of care discussion and symptom management. CC: Rogelio Paredes - Time Spent with Patient Time: Total time spent is greater than 50% in coordination of care (as documented) at patient's floor/unit and/or counseling patient: Time with patient: 45 minutes Past Med Surg Social Fam HX - Past Medical History Medical history: arthritis, dementia, GERD, hyperlipidemia, myocardial infarction, renal disease Additional medical history: Blind in left eye, prostate disease, Parkinson's Psychiatric history: no psych history - Past Surgical History Surgical History: cholecystectomy Additional surgical history: back surgeries x3, right wrist repair. - Social History Smoking Status: Former smoker Smokeless Tobacco Status: Yes (chewing tobacco) Alcohol use: none Drug use: none - Family History Daughter Name: Chastity Kurt Age: 50 Family Member Ethnicity: Non- Living Status: Still Living Hx Family Cardiac Disorders: No Hx Family Respiratory Disorders: No Hx Family Cancer: No Hx Family GI Disorders: No Hx Family Genitourinary Disorders: No Hx Family Endocrine Disorder: No Hx Family Musculoskeletal Disorders: No Hx Family Neuromuscular Disorders: No Hx Family Neurologic Disorders: No Hx Family HEENT Disorders: No Hx Family Autoimmune Disorders: No Hx Family Reproductive Disorders: No Hx Family Psychosocial Disorders: No Hx Family Medical Disorders: No Mother Living Status: Hx Family Respiratory Disorders: Yes (COPD) Hx Family Endocrine Disorder: Yes Medications and Allergies Carbidopa/Levodopa ER 50/200 [Sinemet ER 50-200 Tab] 1 tab PO BID 04/16/16 [History] Cyclobenzaprine [Flexeril] 10 mg PO BID 04/16/16 [History] Fenofibric Acid (Choline) [Trilipix] 135 mg PO DAILY 04/16/16 [History] Finasteride [Proscar] 5 mg PO DAILY 04/16/16 [History] Furosemide [Lasix] 40 mg PO BID 04/16/16 [History] Meloxicam [Mobic] 15 mg PO DAILY 04/16/16 [History] Pantoprazole Sodium 40 mg PO DAILY 04/16/16 [History] Potassium Chloride [K-Tab ER] 20 meq PO BID 04/16/16 [History] Simvastatin [Zocor] 40 mg PO HS 04/16/16 [History] Tamsulosin HCl [Flomax] 0.8 mg PO DAILY 10/15/16 [History] Donepezil [Aricept] 10 mg PO HS 05/10/19 [History] Acetaminophen [Pain Relief] 500 mg PO Q6H 7 Days #28 tablet 05/11/19 [Rx] Docusate [Colace] 100 mg PO BID 5 Days #10 capsule 05/11/19 [Rx] Acetaminophen [Tylenol] 650 mg PO Q6H PRN tablet 05/16/19 [Rx] HYDROcodone/Acet 5/325 mg [[place] 5-325 mg] 0.5 tab PO BID 3 Days #3 tablet 05/16/19 [Rx] Leptospermum Honey [Medihoney] 1 appl TP DAILY tube 05/16/19 [Rx] Lidocaine Patch [Lidoderm 5% patch] 1 each TP DAILY adh..patch 05/16/19 [Rx] Silvasorb 1 appl TP DAILY tube 05/16/19 [Rx] Tramadol HCl [Ultram] 50 mg PO DAILY PRN 2 Days #2 tab 05/16/19 [Rx] Allergy/AdvReac Type Severity Reaction Status Date / Time Penicillins AdvReac Swelling Verified 05/23/19 21:35 of Lip/Tongue/Throat ROS unobtainable: due to mental status Palliative Care-Exam - Constitutional Vitals: Temp Pulse Resp BP Pulse Ox 98.4 F 86 16 140/72 97 05/24/19 06:21 05/24/19 06:21 05/24/19 06:21 05/24/19 06:21 05/24/19 06:21 General appearance: Present: no acute distress - Head Head Exam: Present: normal inspection, normocephalic - Respiratory Respiratory exam: Present: decreased breath sounds, CTAB - Cardiovascular Cardiovascular exam: Present: +S1, +S2 - GI/Abdominal Exam GI/Abdominal exam: Present: normal bowel sounds, soft - Extremities Exam Extremities exam: Present: normal capillary refill, normal inspection Additional comments: Right hip dressing D/I - Neurological Exam Neurological exam: Present: alert, altered Additional comments: Oriented to name only. - Skin Skin exam: Present: dry, pallor, warm Internal Medicine - CN: Reslt - Labs CBC & Chem 7: 05/24/19 00:11 05/24/19 00:11 Labs: Short CBC 05/24/19 Range/Units 00:11 WBC 19.0 H (4.3-11.1) K/mcL Hgb 11.8 L (12.9-16.9) g/dL Hct 36.9 L (37.5-50.1) % Plt Count 519 H (140-400) K/mcL Neutrophils # 15.5 H (1.6-8.9) K/mcL BMP 05/24/19 00:11 Sodium 145 Potassium 4.0 Chloride 114 H Carbon Dioxide 22 L BUN 51 H Creatinine 1.98 H Glucose 200 H Calcium 8.3 L Liver Function 05/24/19 Range/Units 00:11 Total Bilirubin 0.7 (0.3-1.0) mg/dL AST 29 (13-39) Units/L ALT 3 L (7-52) Units/L Alkaline Phosphatase 89 (34-104) Units/L Albumin 2.8 L (3.5-5.7) g/dL Consult Discharge Plan - Plan Referrals: NONE,PCP [Primary Care Provider] - Palliative Quality Palliative Quality: Screen for Code Status: Yes, Screen for Goals of Care: Yes, Screen for Pain: NA (Taken to OR), If Pain Regimen Started, Initiate Bowel Regimen: NA, Screen for Nausea/Vomitting: NA Code Status: 05/23/19 17:37 Resuscitation Status: Active [RES] Routine Comment: Resuscitation Status: Full Code 05/24/19 13:18 DNR [Resuscitation Status: Active] [RES] Routine Comment: Resuscitation Status: DNR-Comfort Care-Arrest
[2019-05-24] MEDS ORDERED: *HR* Etomidate 40 MG/20 ML VIAL IVP ONE (16:05)
[2019-05-24] MEDS ORDERED: Heparin 1,000 UNITS/500 mL 0 ML ONE (16:18)
[2019-05-24] MEDS ORDERED: *HR* PHENYLEPHRINE 1,000 MCG/10 ML SYRINGE IVP ONE (16:18)
--- NOTE | 2019-05-24 17:01 | Orthopedic Operative Note ---
Date of procedure: 05/24/19 Pre-op diagnosis: Right hip infection Post-op diagnosis: same Procedure: Procedure: Irrigation debridement right hip Estimated blood loss: 100 mL Findings: Purulent serosanguineous material through the fascia to the level of the prosthesis. Dictation of procedure: Patient brought to the operative placement operative table after general anesthesia was administered patient was placed left side down right side about acute disposition all pressure points padded appropriate. The right lower extremity is prepped and draped sterile surgical fashion patient received IV antibiotics prior skin incision. An elliptical incision was made around the incision, and subcutaneous tissue, hemostasis was obtained with Bovie cautery. Patient noted to have a defect in the subcutaneous tissue that extended through the fascial layer deep into the hip, there is serosanguineous purulent material. This was cultured. This was irrigated out with 1 L of pulse irrigation with an antibacterial solution followed by 3 L of pulse irrigation of normal saline. The hip was then debrided of fibrinous tissue, it was irrigated with 2 L every different antibacterial solution. This was followed by 1 L of the first antibacterial solution under pulsatile irrigation followed by 3 L of pulse irrigation normal saline. The fascia was closed after the hip was confirmed to be well reduced over a JOSE FRANCISCO drain with #2 PDS suture subcutaneous tissues closed in layers with PDS suture and Monocryl skin was closed with skin jason. Patient was placed in a sterile dressing postoperative brace extubated and transferred to recovery room in stable condition. Anesthesia: GETA Surgeon: Manuel Dawkins Was there an team assistant present: Yes Director Sales Training: Mingo Padilla Estimated blood loss (cc): 100 Condition: stable Disposition: PACU
[2019-05-24] MEDS: *HR* HYDROmorphone (PF) 1 MG/ML SYRINGE IVP PRN ×2 (17:37→17:47)
[2019-05-24] MEDS ORDERED: *HR* OxyCODONE Immed Rel 5 MG TABLET PO PRN (17:50)
[2019-05-24] MEDS ORDERED: *HR* LORazepam 0.5 MG TABLET PO PRN (17:56)
--- NOTE | 2019-05-24 17:57 | Anesthesia Evaluation Post Op ---
Date of Encounter: 05/24/19 Time of Encounter: 17:56 - Discharge PostOp Status: Transfer Patient to floor (Patient's vital signs have been reviewed. Patient is stable postoperatively and has adequately recovered from anesthesia. Patient is determined to have stable airway patency and respiratory function including respiratory rate and oxygen saturation. Patient has a stable heart rate, blood pressure and adequate hydration. Patients mental status is acceptable. Patients temperature is appropriate. Pain and nausea are adequately controlled)
[2019-05-24] MEDS ORDERED: MOM Conc 10 ML UD.LIQ PO PRN (18:28)
[2019-05-24] MEDS ORDERED: Naloxone 0.4 MG/ML INJ IVP PRN (18:28)
[2019-05-24] MEDS ORDERED: Temazepam 15 MG CAPSULE PO PRN (18:28)
[2019-05-24] MEDS ORDERED: *HR* Promethazine 25 MG/ML VIAL IVP PRN (18:28)
[2019-05-24] MEDS ORDERED: Ondansetron 4 MG/2 ML VIAL IVP PRN (18:28)
[2019-05-24] MEDS: Ringers Solution, Lactated 1,000 ML IVC SCH (21:46)
[2019-05-24] MEDS: Ascorbic Acid 500 MG TABLET PO SCH (21:46)
[2019-05-25] MEDS: Acetaminophen IV 1,000 MG/100 ML INFUS..BTL IVPB PRN ×2 (01:23→13:52)
[2019-05-25] MEDS: *HR* LORazepam 2 MG/ML VIAL IVP PRN (01:23)
[2019-05-25 02:13] LABS: Acinetobacter baumannii by PCR Not Detected (Not Detect); Candida albicans by PCR Not Detected (Not Detect); Candida glabrata by PCR Not Detected (Not Detect); Candida krusei by PCR Not Detected (Not Detect); Candida parapsilosis by PCR Not Detected (Not Detect); Candida tropicalis by PCR Not Detected (Not Detect); Enterobacter cloacae Cmplx PCR Not Detected (Not Detect); Enterobacteriaceae by PCR Not Detected (Not Detect); Enterococcus by PCR Not Detected (Not Detect); Escherichia coli by PCR Not Detected (Not Detect); Klebsiella oxytoca by PCR Not Detected (Not Detect); Klebsiella pneumoniae by PCR Not Detected (Not Detect); Proteus by PCR DETECTED (Not Detect); Pseudomonas aeruginosa by PCR Not Detected (Not Detect); Serratia marcescens by PCR Not Detected (Not Detect); Staphylococcus aureus by PCR Not Detected (Not Detect); Staphylococcus by PCR Not Detected (Not Detect); Streptococcus agalactiae(B)PCR Not Detected (Not Detect); Streptococcus by PCR Not Detected (Not Detect); Streptococcus pneumoniae PCR Not Detected (Not Detect); Streptococcus pyogenes (A) PCR Not Detected (Not Detect); blaKPC Carbapenem-Resist Gene Not Detected (Not Detect); mecA Methicillin-Resist Gene Not Detected (Not Detect); vanA/B Vancomycin-Resist Genes Not Detected (Not Detect)
[2019-05-25] MEDS ORDERED: Cefepime HCl 1,000 MG in Water for inj. (sterile) 10 ML IVP SCH (03:00)
[2019-05-25 04:03] LABS: Basophils % 0.1 %; Hematocrit 34.2 % (37.5-50.1); Hemoglobin 10.8 g/dL (12.9-16.9); Immature Granulocytes % 0.9 % (0-4); Lymphocytes # 0.9 K/mcL (0.6-4.6); Lymphocytes % 4.6 %; Mean Corpuscular HGB Conc 31.6 g/dL (31.6-35.5); Mean Corpuscular Hemoglobin 30.7 pg (28.0-33.3); Mean Corpuscular Volume 97.2 fL (83.0-100.0); Mean Platelet Volume 11.3 fL (9.4-12.4); Monocytes # 0.9 K/mcL (0.0-1.3); Monocytes % 4.8 %; Neutrophils # 16.4 K/mcL (1.6-8.9); Platelet Count 473 K/mcL (140-400); Red Blood Count 3.52 M/mcL (4.19-5.50); Red Cell Distribution Width 14.3 % (11.5-14.5); Segmented Neutrophils % 89.6 %; White Blood Count 18.3 K/mcL (4.3-11.1)
[2019-05-25 04:16] LABS: Potassium 4.4 mEq/L (3.5-5.1)
[2019-05-25] MEDS: HYDROcodone BIT/Homatropine 5 MG TABLET PO PRN ×2 (06:39→16:00)
--- NOTE | 2019-05-25 07:52 | Orthopedics Progress Note ---
Date of Encounter: 05/25/19 Time of Encounter: 08:30 - Assessment and Plan (1) Infection of right prosthetic hip joint Current Visit: Yes Status: Acute Qualifiers: Encounter type: initial encounter Qualified Code(s): T84.51XA - Infection and inflammatory reaction due to internal right hip prosthesis, initial encounter (2) Status post total hip replacement, right Current Visit: Yes Status: Acute (3) CAD (coronary artery disease) Current Visit: No Status: Chronic Qualifiers: Coronary Disease-Associated Artery/Lesion type: [place] artery [place] vs. transplanted heart: [place] heart Associated angina: without angina Qualified Code(s): I25.10 - Atherosclerotic heart disease of [place] coronary artery without angina pectoris (4) Parkinson disease Current Visit: No Status: Chronic (5) CHF (congestive heart failure) Current Visit: No Status: Chronic Qualifiers: Heart failure type: unspecified Heart failure chronicity: unspecified Fabrizio lified Code(s): I50.9 - Heart failure, unspecified (6) CKD (chronic kidney disease) stage 4, GFR 15-29 ml/min Current Visit: No Status: Chronic (7) Venous ulcer of right lower extremity without varicose veins Current Visit: No Status: Chronic (8) Status post closed fracture of right femur Current Visit: No Status: Chronic Subjective Principal diagnosis: right hip irrigation and debridement Interval history: Patient status post Right Total Hip Replacment robotic-assisted. Date of surgery 05/11/19. Presenting to office 05/23 with complaints from ECF staff of brown malodorous drainage from incision. Patient admitted to hospitalist service and is now POD#1 s/p Irrigation debridement right hip 05/24/19. Patient supine in bed, daughters on either side of bed. They state he is improved, but not to baseline re: confusion. Dressing with scant drainage. Incision intact. JOSE FRANCISCO drain in place with cloudy serosanguinous drainage. No calf tenderness, erythema, or warmth. Neurovascularly intact b/l LE. Labwork, vitals, and medications reviewed. BC x1 prelim positive for growth. Culture swab from office found to be positive for Proteus Mirabilis. Pain control: Adequate per patient's daughters. Participating in therapy All questions and concerns addressed to patient's daughter's satisfaction. Addressed: JOSE FRANCISCO drain to continue until less than 50 cc output or until 48-72 hours With patient's positive cultures and positive BC will collaborate with infectious disease for appropriate treatment. Continue total hip precautions Patient course and disposition discussed with Dr. Dawkins D/C plan: continue postoperative care and medical management. Objective Vital signs: Vital Signs Temp Pulse Pulse Resp BP Pulse Ox 05/25/19 07:09 99.0 F 92 18 139/65 100 05/25/19 06:09 72 05/25/19 03:03 97.9 F 82 20 127/71 100 05/24/19 23:17 97.3 F L 77 16 113/65 97 05/24/19 21:30 98.4 F 74 16 118/78 05/24/19 20:30 97.8 F 78 16 112/62 100 05/24/19 19:32 97.3 F L 80 20 112/70 95 05/24/19 19:00 98.4 F 81 20 106/66 97 05/24/19 18:46 98.3 F 05/24/19 18:30 96.5 F L 84 14 104/66 97 05/24/19 18:10 99 F 87 14 115/68 95 05/24/19 18:00 87 14 116/68 95 05/24/19 17:50 93 16 120/80 96 05/24/19 17:40 98.5 F 97 16 142/77 97 05/24/19 17:30 95 18 142/76 99 05/24/19 17:20 96 16 115/81 98 05/24/19 17:10 98.6 F 88 16 125/66 97 Intake and Output 05/24/19 05/24/19 05/25/19 15:59 23:59 07:59 Intake Total 110 / 110 0 / 0 Output Total 100 / 100 100 / 100 Balance 110 / 10 -100 / 10 -100 / -100 Intake: IV Fluids 110 / 110 Maxipime 1,000 MG In Water for inj. (sterile) 10 ML @ 300 mls/ hr IVP Q12HR MICHAEL Rx#:[id number] Ofirmev 1,000 mg/100 ml 1,000 100 / 100 mg In 100 ml @ 400 mls/hr IVPB Q6HR PRN Rx#:[id number] Oral 0 / 0 Output: Estimated Blood Loss 100 / 100 Wound Drainage 100 / 100 Right Hip 100 / 100 Other: Stool Size Smear Stool Consistency soft Stool Color Brown # Urine Diapers 1 1 # Bowel Movement Diapers 1 Weight 78.8 kg Blood Glucose* 157 Patient Weight 05/25/19 23:59 Weight 78.8 kg - Labs CBC & BMP: 05/28/19 04:20 05/28/19 04:20 Labs: Abnormal lab results WBC 18.3 K/mcL (4.3-11.1) H 05/25/19 03:46 RBC 3.52 M/mcL (4.19-5.50) L 05/25/19 03:46 Hgb 10.8 g/dL (12.9-16.9) L 05/25/19 03:46 Hct 34.2 % (37.5-50.1) L 05/25/19 03:46 Plt Count 473 K/mcL (140-400) H 05/25/19 03:46 Neutrophils # 16.4 K/mcL (1.6-8.9) H 05/25/19 03:46 Monocytes # 1.5 K/mcL (0.0-1.3) H 05/24/19 00:11 Sodium 146 mEq/L (136-145) H 05/25/19 03:46 Chloride 118 mEq/L (98-107) H 05/25/19 03:46 Carbon Dioxide 20 mEq/L (23-29) L 05/25/19 03:46 BUN 44 mg/dL (8-23) H 05/25/19 03:46 Creatinine 1.67 mg/dL (0.70-1.30) H 05/25/19 03:46 Est GFR ( Amer) 48 (> 60) L 05/25/19 03:46 Est GFR (Non-Af Amer) 40 (> 60) L 05/25/19 03:46 Glucose 219 mg/dL (70-105) H 05/25/19 03:46 POC Glucose 157 mg/dL (70-99) H 05/24/19 11:42 Calculated Osmolality 320 (280-300) H 05/25/19 03:46 Calcium 8.0 mg/dL (8.6-10.3) L 05/25/19 03:46 ALT 3 Units/L (7-52) L 05/24/19 00:11 Albumin 2.8 g/dL (3.5-5.7) L 05/24/19 00:11 Globulin 3.9 g/dL (2.4-3.5) H 05/24/19 00:11 Albumin/Globulin Ratio 0.7 (1.1-2.2) L 05/24/19 00:11 Proteus species (PCR) DETECTED (Not Detect) A 05/24/19 00:11 Consult Discharge Plan - Plan Referrals: NONE,PCP [Primary Care Provider] -
--- NOTE | 2019-05-25 08:20 | Orthopedics Progress Note ---
Date of Encounter: 05/25/19 Time of Encounter: 08:20 Subjective Interval history: Patient was seen this morning doing well without complaints. Afebrile vital signs stable. Operative extremity: Neurovascularly intact Dressing clean dry and intact Calves nontender Assessment and plan: Continue with postoperative care Patient with gram-negative rods and blood Objective Vital signs: Vital Signs Temp Pulse Pulse Resp BP Pulse Ox 05/25/19 07:09 99.0 F 92 18 139/65 100 05/25/19 06:09 72 05/25/19 03:03 97.9 F 82 20 127/71 100 05/24/19 23:17 97.3 F L 77 16 113/65 97 05/24/19 21:30 98.4 F 74 16 118/78 05/24/19 20:30 97.8 F 78 16 112/62 100 05/24/19 19:32 97.3 F L 80 20 112/70 95 05/24/19 19:00 98.4 F 81 20 106/66 97 05/24/19 18:46 98.3 F 05/24/19 18:30 96.5 F L 84 14 104/66 97 05/24/19 18:10 99 F 87 14 115/68 95 05/24/19 18:00 87 14 116/68 95 05/24/19 17:50 93 16 120/80 96 05/24/19 17:40 98.5 F 97 16 142/77 97 05/24/19 17:30 95 18 142/76 99 05/24/19 17:20 96 16 115/81 98 05/24/19 17:10 98.6 F 88 16 125/66 97 Intake and Output 05/24/19 05/25/19 05/25/19 23:59 07:59 15:59 Intake Total 0 / 0 Output Total 100 / 100 100 / 100 Balance -100 / 10 -100 / -100 Intake: Oral 0 / 0 Output: Estimated Blood Loss 100 / 100 Wound Drainage 100 / 100 Right Hip 100 / 100 Other: Stool Size Smear Stool Consistency soft Stool Color Brown # Urine Diapers 1 # Bowel Movement Diapers 1 Weight 78.8 kg Patient Weight 05/25/19 23:59 Weight 78.8 kg - Labs CBC & BMP: 05/25/19 03:46 05/25/19 03:46 Labs: Abnormal lab results WBC 18.3 K/mcL (4.3-11.1) H 05/25/19 03:46 RBC 3.52 M/mcL (4.19-5.50) L 05/25/19 03:46 Hgb 10.8 g/dL (12.9-16.9) L 05/25/19 03:46 Hct 34.2 % (37.5-50.1) L 05/25/19 03:46 Plt Count 473 K/mcL (140-400) H 05/25/19 03:46 Neutrophils # 16.4 K/mcL (1.6-8.9) H 05/25/19 03:46 Monocytes # 1.5 K/mcL (0.0-1.3) H 05/24/19 00:11 Sodium 146 mEq/L (136-145) H 05/25/19 03:46 Chloride 118 mEq/L (98-107) H 05/25/19 03:46 Carbon Dioxide 20 mEq/L (23-29) L 05/25/19 03:46 BUN 44 mg/dL (8-23) H 05/25/19 03:46 Creatinine 1.67 mg/dL (0.70-1.30) H 05/25/19 03:46 Est GFR ( Amer) 48 (> 60) L 05/25/19 03:46 Est GFR (Non-Af Amer) 40 (> 60) L 05/25/19 03:46 Glucose 219 mg/dL (70-105) H 05/25/19 03:46 POC Glucose 157 mg/dL (70-99) H 05/24/19 11:42 Calculated Osmolality 320 (280-300) H 05/25/19 03:46 Calcium 8.0 mg/dL (8.6-10.3) L 05/25/19 03:46 ALT 3 Units/L (7-52) L 05/24/19 00:11 Albumin 2.8 g/dL (3.5-5.7) L 05/24/19 00:11 Globulin 3.9 g/dL (2.4-3.5) H 05/24/19 00:11 Albumin/Globulin Ratio 0.7 (1.1-2.2) L 05/24/19 00:11 Proteus species (PCR) DETECTED (Not Detect) A 05/24/19 00:11 Consult Discharge Plan - Plan Referrals: NONE,PCP [Primary Care Provider] -
--- NOTE | 2019-05-25 09:24 | Internal Med Progress Note ---
Hospitalist Progress Note - Encounter Date of Encounter: 05/25/19 Time of Encounter: 09:00 - Subjective Interval History: No acute events overnight - Exam Vitals: Temp Pulse Resp BP Pulse Ox 99.0 F 92 18 139/65 100 05/25/19 07:09 05/25/19 07:09 05/25/19 07:09 05/25/19 07:09 05/25/19 07:09 Exam: Gen. Alert. Has dementia CVS. S1 S2 WNL Resp. CTAB GI. Soft, NT, ND, +BS EXt.Wound pump in place in right hip MANAGER PRIVATE. GCs 15/15 - Assessment and Plan (1) Sepsis Current Visit: Yes Status: Acute Assessment and Plan: Pt has leukocytosis with gram negative rods in blood Possible sources are UTI vs hip wound Continue cefepime, follow up repeat cultures FPC goals of care. Seen by palliative care, family will decide between rehab and home hospice once medically ready for discharge (2) Status post total hip replacement, right Current Visit: Yes Status: Acute Assessment and Plan: Pt is s/p right hip arthroplsty with drainage and concern for infection S/p hip washout yesterday. Tolerated procedure well with no acute complications Postop care per orthopedic surgery (3) Leukocytosis Current Visit: Yes Status: Acute Assessment and Plan: Query infection. Obtain cultures. Start empirically on cefepime D/C cefepime if cultures are negative (4) CAD (coronary artery disease) Current Visit: Yes Status: Chronic Assessment and Plan: Resume home meds (5) Parkinson disease Current Visit: Yes Status: Chronic Assessment and Plan: Resume home meds (6) DVT prophylaxis Current Visit: Yes Status: Acute Assessment and Plan: Heparin sc - Time Spent with Patient Total time spent is greater than 50% in coordination of care (as documented) at patient's floor/unit and/or counseling patient: Internal Medicine: Result - Labs CBC & Chem 7: 05/25/19 03:46 05/25/19 03:46 Labs: Short CBC 05/25/19 Range/Units 03:46 WBC 18.3 H (4.3-11.1) K/mcL Hgb 10.8 L (12.9-16.9) g/dL Hct 34.2 L (37.5-50.1) % Plt Count 473 H (140-400) K/mcL Neutrophils # 16.4 H (1.6-8.9) K/mcL BMP 05/25/19 03:46 Sodium 146 H Potassium 4.4 Chloride 118 H Carbon Dioxide 20 L BUN 44 H Creatinine 1.67 H Glucose 219 H Calcium 8.0 L Consult Discharge Plan - Plan Referrals: NONE,PCP [Primary Care Provider] - (3) Leukocytosis Qualifiers: Qualified Code(s): D72.829 - Elevated white blood cell count, unspecified (4) CAD (coronary artery disease) Qualifiers: Coronary Disease-Associated Artery/Lesion type: [place] artery [place] vs. transplanted heart: [place] heart Associated angina: without angina Qualified Code(s): I25.10 - Atherosclerotic heart disease of [place] coronary artery without angina pectoris
[2019-05-25] MEDS: Multivit/Ca/Min/Fe/FA 1 TAB TABLET PO SCH (09:59)
[2019-05-25] MEDS: Ascorbic Acid 500 MG TABLET PO SCH ×2 (09:59→16:00)
[2019-05-25] MEDS: Carbidopa/Levodopa ER 50/200 TABLET PO SCH ×2 (09:59→20:53)
[2019-05-25] MEDS: Finasteride 5 MG TABLET PO SCH (09:59)
[2019-05-25] MEDS: *HR* OxyCODONE Immed Rel 5 MG TABLET PO PRN ×2 (10:27→20:53)
--- NOTE | 2019-05-25 10:40 | Palliative Progress Note ---
Date of Encounter: 05/25/19 Time of Encounter: 10:45 - Assessment and plan (1) Right hip pain Current Visit: Yes Status: Acute Assessment and plan: Pain medication has been ordered postoperatively by ortho. Tramadol and Oxycodone currently ordered. (2) Decreased oral intake Current Visit: Yes Status: Acute Assessment and plan: Notified pastry cook of patient's family concerns of decreased intake after surgery and they were notified by [facility] that his protein levels were low. D/W Gladys and she will come speak with patient's family. (3) Anxiety Current Visit: Yes Status: Acute Assessment and plan: Has low dose Lorazepam for anxiety/restlessness. Utilized x1 during the night. (4) Advance care planning Current Visit: Yes Status: Acute Assessment and plan: 45 min discussion with daughter Chastity SOSA regarding clinical status and goals of care discussion. Discussed current treatment for sepsis and current pain medication ordered. Patient cried out with therapy today which upset daughters. They do want to ensure pain is controlled, they understand that he will have surgical pain however. Discussed code status again at length and differences between DNR-Arrest and DNRCC. Asked daughter to consider if her father could make his own decision given his chronic illnes and current status what he would have desired. Explained that as DNRCC, he would have nothing resuscitative performed, but could still have standard medical care and treatment for his infection. She wants to discuss with her and will get back with me. DIscussed as well that as a DNRCC he could still return to [facility] and have rehabilitation as well as IV atb therapy. Discussed that if he would deteriorate or have another medical event, they could determine whether to treat or transition him to hospice type care. (5) Palliative care encounter Current Visit: Yes Status: Acute (6) Parkinson disease Current Visit: Yes Status: Chronic (7) Status post total hip replacement, right Current Visit: Yes Status: Acute - Time Spent With Patient Total time spent is greater than 50% in coordination of care (as documented) at patient's floor/unit and/or counseling patient: Greater than 35 minutes - Subjective Interval history: Patient went to OR late yesterday afternoon. Has had positive blood culture - final sensitivity still pending. Wound culture pending as well. On my initial visit this am, Daughter did not want me to disturb him as he had PT and e xcruciating pain, and then had more labwork done and was resting. I visited again this afternoon. Both daughters at bedside and giving him ensure. He is awake with mumbled speech that is difficult to understand. He will smile at intervals. Daughter Simeon at bedside asking about his protein levels and different supplements for his nutritional status. She also expressed that pain medications have been given and appear to help however, she feels that staff is busy and he needs evaluated more frequently. They feel that his pain gets out of control and requires longer period of time to get him settled. - Constitutional Vitals: Abnormal lab results WBC 18.3 K/mcL (4.3-11.1) H 05/25/19 03:46 RBC 3.52 M/mcL (4.19-5.50) L 05/25/19 03:46 Hgb 10.8 g/dL (12.9-16.9) L 05/25/19 03:46 Hct 34.2 % (37.5-50.1) L 05/25/19 03:46 Plt Count 473 K/mcL (140-400) H 05/25/19 03:46 Neutrophils # 16.4 K/mcL (1.6-8.9) H 05/25/19 03:46 Monocytes # 1.5 K/mcL (0.0-1.3) H 05/24/19 00:11 Sodium 146 mEq/L (136-145) H 05/25/19 03:46 Chloride 118 mEq/L (98-107) H 05/25/19 03:46 Carbon Dioxide 20 mEq/L (23-29) L 05/25/19 03:46 BUN 44 mg/dL (8-23) H 05/25/19 03:46 Creatinine 1.67 mg/dL (0.70-1.30) H 05/25/19 03:46 Est GFR ( Amer) 48 (> 60) L 05/25/19 03:46 Est GFR (Non-Af Amer) 40 (> 60) L 05/25/19 03:46 Glucose 219 mg/dL (70-105) H 05/25/19 03:46 POC Glucose 157 mg/dL (70-99) H 05/24/19 11:42 Calculated Osmolality 320 (280-300) H 05/25/19 03:46 Calcium 8.0 mg/dL (8.6-10.3) L 05/25/19 03:46 ALT 3 Units/L (7-52) L 05/24/19 00:11 Albumin 2.8 g/dL (3.5-5.7) L 05/24/19 00:11 Globulin 3.9 g/dL (2.4-3.5) H 05/24/19 00:11 Albumin/Globulin Ratio 0.7 (1.1-2.2) L 05/24/19 00:11 Proteus species (PCR) DETECTED (Not Detect) A 05/24/19 00:11 Palliative Quality Palliative Quality: Screen for Code Status: Yes, Screen for Goals of Care: Yes, Screen for Pain: NA (Taken to OR), If Pain Regimen Started, Initiate Bowel Regimen: NA, Screen for Nausea/Vomitting: NA Code Status: 05/23/19 17:37 Resuscitation Status: Active [RES] Routine Comment: Resuscitation Status: Full Code 05/24/19 13:18 DNR [Resuscitation Status: Active] [RES] Routine Comment: Resuscitation Status: DNR-Comfort Care-Arrest - Labs CBC & Chem 7: 05/25/19 03:46 05/25/19 03:46 Labs: Laboratory Results - last 24 hr 05/24/19 05/24/19 05/24/19 00:11 06:20 11:42 WBC RBC Hgb Hct MCV MCH MCHC RDW Plt Count MPV Immature Gran % Seg Neutrophils % Lymphocytes % Monocytes % Eosinophils % Basophils % Neutrophils # Lymphocytes # Monocytes # Eosinophils # Basophils # Sodium Potassium Chloride Carbon Dioxide BUN Creatinine Est GFR ( Amer) Est GFR (Non-Af Amer) BUN/Creatinine Ratio Glucose POC Glucose 173 H 157 H Calculated Osmolality Lactic Acid Calcium A. baumannii (PCR) Not Detected Pat albicans (PCR) Not Detected C. glabrata (PCR) Not Detected C. krusei (PCR) Not Detected C. parapsilosis (PCR) Not Detected C. tropicalis (PCR) Not Detected Enterobacteriac sp PCR Not Detected E. cloacae complex PCR Not Detected Enterococcus sp PCR Not Detected E. coli (PCR) Not Detected H. influenzae (PCR) Not Detected Klebsiella oxytoca PCR Not Detected Klebsiella pneumoniae Not Detected List. monocytogenes PCR Not Detected N. meningitidis (PCR) Not Detected Proteus species (PCR) DETECTED A Serratia marcescens PCR Not Detected Staphylococcus sp PCR Not Detected Staph aureus (PCR) Not Detected mecA-Methicil Res Gene Not Detected Streptococcus sp PCR Not Detected Group A Strep DNA Not Detected Group B Strep (PCR) Not Detected Strep pneumoniae (PCR) Not Detected P. aeruginosa (PCR) Not Detected Levon/B-Vanco Res Genes Not Detected KPC (blaKPC) Detect PCR Not Detected 05/25/19 05/25/19 05/25/19 03:46 03:46 03:46 WBC 18.3 H RBC 3.52 L Hgb 10.8 L Hct 34.2 L MCV 97.2 MCH 30.7 MCHC 31.6 RDW 14.3 Plt Count 473 H MPV 11.3 Immature Gran % 0.9 Seg Neutrophils % 89.6 Lymphocytes % 4.6 Monocytes % 4.8 Eosinophils % 0.0 Basophils % 0.1 Neutrophils # 16.4 H Lymphocytes # 0.9 Monocytes # 0.9 Eosinophils # 0.0 Basophils # 0.0 Sodium 146 H Potassium 4.4 Chloride 118 H Carbon Dioxide 20 L BUN 44 H Creatinine 1.67 H Est GFR ( Amer) 48 L Est GFR (Non-Af Amer) 40 L BUN/Creatinine Ratio 26 Glucose 219 H POC Glucose Calculated Osmolality 320 H Lactic Acid 1.1 Calcium 8.0 L A. baumannii (PCR) Pat albicans (PCR) C. glabrata (PCR) C. krusei (PCR) C. parapsilosis (PCR) C. tropicalis (PCR) Enterobacteriac sp PCR E. cloacae complex PCR Enterococcus sp PCR E. coli (PCR) H. influenzae (PCR) Klebsiella oxytoca PCR Klebsiella pneumoniae List. monocytogenes PCR N. meningitidis (PCR) Proteus species (PCR) Serratia marcescens PCR Staphylococcus sp PCR Staph aureus (PCR) mecA-Methicil Res Gene Streptococcus sp PCR Group A Strep DNA Group B Strep (PCR) Strep pneumoniae (PCR) P. aeruginosa (PCR) Levon/B-Vanco Res Genes KPC (blaKPC) Detect PCR Consult Discharge Plan - Plan Referrals: NONE,PCP [Primary Care Provider] -
[2019-05-25] MEDS: Cefepime HCl 2,000 MG in Water for inj. (sterile) 20 ML IVP SCH (12:03)
[2019-05-25] MEDS: Leptospermum Honey Gel 44 ML TUBE TP SCH (12:04)
[2019-05-25] MEDS: Silvasorb 44.4 ML TUBE TP SCH (12:04)
[2019-05-25] MEDS: Ringers Solution, Lactated 1,000 ML IVC SCH (12:04)
--- NOTE | 2019-05-25 14:11 | Infectious Disease Consult ---
Infectious Disease-Consult - Encounter Date/Time Date of Encounter: 05/25/19 Time of Encounter: 14:07 - Data of Consult Patient: new to practice Reason for consult: Hip infection, bacteremia Consult date: 05/25/19 Requesting Physician: Rogelio Paredes Primary Care Provider: PCP NONE - HPI HPI: Mr. wellington is an 84-year-old male with a past medical history of dementia, Parkinson's, CAD status post HI, GERD, chronic kidney disease, prostate disease, and status post right total hip arthroplasty 05/11/19. The patient was admitted to the hospital 05/23/19 for right hip infection. We are consulted 05/25/19 for further workup and treatment recommendations for right hip infection and bacteremia. Briefly, the patient's 84-year-old male with past medical history as stated above. The patient's dementia precludes his ability to provide me with much information regarding the events leading up to his hospitalization, therefore, most of the information is obtained from the medical record and from his family was at the bedside. Apparently, the patient seemed a fall and underwent a right total hip arthroplasty 05/11/19. Since surgery, he has been noncompliant with his abduction pillow and has had some internal rotation of the extremity. On the day of admission, he was noted have some drainage from the surgical site and was seen in the orthopedics office. Wound cultures were obtained and are positive for Proteus mirabilis. He was referred to the hospital for direct admission for surgical intervention. Upon arrival, he was afebrile and hemodynamically stable. He had leukocytosis with neutrophilic predominance. His serum creatinine was elevated consistent with his chronic kidney disease. Blood cultures were obtained 2 sets are +1 out of 2 for Proteus per the PCR. Orthopedics was consult and he was taken to the operating room 05/24/19 for an I&D of the right hip. Intraoperative cultures are pending. Palliative care team was consulted to discuss goals of care with the family. This morning, his white blood cell count is improved. Repeat blood cultures are pending 2 sets. He is currently on IV cefepime. We have been asked to evaluate and make further recommendations. During my exam today, the patient's daughters endorsed a history as stated above. Should they state that they are not physically sure what happened to his hip but he was noted to have some dark brown drainage on the day of admission. They deny any known fevers, chills, rigors. States patient has not had any c omplaints. The patient has been staying at a local extended care facility. He does not smoke, drink alcohol, or do any drugs. No history of chronic infectious diseases. No recent travel outside the [facility]. Prior to his recent surgery, he was living at an assisted living facility and was able to ambulate with a walker. - ROS Review of Systems: All systems reviewed and no additional remarkable complaints except as stated. - Results CBC & Chem 7: 05/27/19 05:56 05/27/19 05:56 - Exam Vitals: Temp Pulse Resp BP Pulse Ox 99.2 F 96 20 88/60 100 05/25/19 11:19 05/25/19 11:19 05/25/19 11:19 05/25/19 11:05/25/19 11:19 Exam: Head: Atraumatic, normal inspection, normocephalic. Eye: EOMI, PERRLA, no scleral icterus noted. ENT: Mucous membranes dry. No odontogenic infection noted. Neck: Normal inspection, no meningismus. Respiratory: Clear to auscultation. No rales, respiratory distress, rhonchi, or wheezes noted. Cardiovascular: Regular rate and rhythm, S1 and S2 audible. No murmurs, rubs, or gallops. GI: Soft, nondistended, normal bowel sounds. Ho catheter draining clear yellow urine. Extremities:No joint swelling, pedal edema, or tenderness noted. Right hip dressing C/D/I with JOSE FRANCISCO drain with sanguinous drainage noted. Back: Normal inspection. No vertebral tenderness noted. Neurological: Opens eyes to verbal stimuli, follows some commands. WHITLOCK x 4 on command. Psychiatric: normal affect, normal mood. Skin: Dry, intact, warm. Normal color. No rashes. Carbidopa/Levodopa ER 50/200 [Sinemet ER 50-200 Tab] 1 tab PO BID 04/16/16 [History] Cyclobenzaprine [Flexeril] 10 mg PO BID 04/16/16 [History] Fenofibric Acid (Choline) [Trilipix] 135 mg PO DAILY 04/16/16 [History] Finasteride [Proscar] 5 mg PO DAILY 04/16/16 [History] Furosemide [Lasix] 40 mg PO BID 04/16/16 [History] Meloxicam [Mobic] 15 mg PO DAILY 04/16/16 [History] Pantoprazole Sodium 40 mg PO DAILY 04/16/16 [History] Potassium Chloride [K-Tab ER] 20 meq PO BID 04/16/16 [History] Simvastatin [Zocor] 40 mg PO HS 04/16/16 [History] Tamsulosin HCl [Flomax] 0.8 mg PO DAILY 10/15/16 [History] Donepezil [Aricept] 10 mg PO HS 05/10/19 [History] Acetaminophen [Pain Relief] 500 mg PO Q6H 7 Days #28 tablet 05/11/19 [Rx] Docusate [Colace] 100 mg PO BID 5 Days #10 capsule 05/11/19 [Rx] Acetaminophen [Tylenol] 650 mg PO Q6H PRN tablet 05/16/19 [Rx] HYDROcodone/Acet 5/325 mg [[place] 5-325 mg] 0.5 tab PO BID 3 Days #3 tablet 05/16/19 [Rx] Leptospermum Honey [Medihoney] 1 appl TP DAILY tube 05/16/19 [Rx] Lidocaine Patch [Lidoderm 5% patch] 1 each TP DAILY adh..patch 05/16/19 [Rx] Silvasorb 1 appl TP DAILY tube 05/16/19 [Rx] Tramadol HCl [Ultram] 50 mg PO DAILY PRN 2 Days #2 tab 05/16/19 [Rx] Allergy/AdvReac Type Severity Reaction Status Date / Time Penicillins AdvReac Swelling Verified 05/23/19 21:35 of Lip/Tongue/Throat - Assessment and Plan (1) Leukocytosis Current Visit: Yes Status: Resolved WBC 38083 on admission. Likely secondary to right hip infection and bacteremia. Improved. Qualifiers: Leukocytosis type: unspecified Qualified Code(s): D72.829 - Elevated white blood cell count, unspecified SNOMED Code(s): 816936162, 850175556 (2) Bacteremia Current Visit: Yes Status: Acute Causative organism: Proteus per PCR. Blood cultures drawn 05/24/19 are positive 1/2 sets for Proteus. Repeat blood cultures drawn 05/25/19 are pending. Likely secondary to right PJI. Currently on IV Cefepime. SNOMED Code(s): 1742923 (3) Infection of right prosthetic hip joint Current Visit: Yes Status: Acute Location: Right hip. Causative organism: Proteus mirabilis, bernal-sensitive. Likely secondary to surgical site infection. Acute-onset. Orthopedics consulted. Status post right hip I & D 05/24/[address] Dawkins. Intra- op cultures pending. Currently on IV cefepime. Qualifiers: Encounter type: initial encounter Qualified Code(s): T84.51XA - Infection and inflammatory reaction due to internal right hip prosthesis, initial encounter SNOMED Code(s): 261895088, 687076044 (4) Parkinson disease Current Visit: Yes Status: Chronic SNOMED Code(s): 81224644 (5) CAD (coronary artery disease) Current Visit: Yes Status: Chronic Qualifiers: Coronary Disease-Associated Artery/Lesion type: [place] artery [place] vs. transplanted heart: [place] heart Associated angina: without angina Qualified Code(s): I25.10 - Atherosclerotic heart disease of [place] coronary artery without angina pectoris SNOMED Code(s): 06246583 (6) CKD (chronic kidney disease) stage 4, GFR 15-29 ml/min Current Visit: No Status: Chronic Monitor renal function closely and dose-adjust antibiotics. Avoid nephrotoxins as able. SNOMED Code(s): 263863694 (7) CHF (congestive heart failure) Current Visit: No Status: Chronic Qualifiers: Heart failure type: unspecified Heart failure chronicity: unspecified Qualified Code(s): I50.9 - Heart failure, unspecified SNOMED Code(s): 32079351 (8) Anemia Current Visit: No Status: Resolved Qualifiers: Anemia type: other cause Other causes of anemia: acute posthemorrhagic Qualified Code(s): D62 - Acute posthemorrhagic anemia SNOMED Code(s): 165362462 (9) Status post total hip replacement, right Current Visit: Yes Status: Acute Status post right total hip replacement 05/11/19. SNOMED Code(s): 928259989514, 599479569637 - Recommendations Recommendations: Check baseline ESR and CRP. Await final ID and sensitivities on blood cultures. Await repeat blood cultures to finalize. Await intraoperative cultures. Postop care per the orthopedics team. Discontinue cefepime. Start Rocephin 2 g IV daily. Duration of treatment depends on the clinical picture, but likely 4-6 weeks. Consults vascular access team for IV placement prior to discharge. We will need weekly CBC, BUN/creatinine, ESR, and CRP. Will need weekly IV care per protocol. Follow up with ID 06/12/19 at 1400. Past Med Surg Social Fam HX - Past Medical History Source: old records reviewed, obtained from family, nursing notes reviewed Medical history: arthritis, dementia, GERD, hyperlipidemia, myocardial infarction, renal disease Additional medical history: Blind in left eye, prostate disease, Parkinson's Psychiatric history: no psych history - Past Surgical History Surgical History: cholecystectomy Additional surgical history: back surgeries x3, right wrist repair. - Social History Smoking Status: Former smoker Smokeless Tobacco Status: Yes (chewing tobacco) Alcohol use: none Drug use: none Occupational status: retired Current living situation: [facility] Activity Level: Uses cane/walker Recent Out of Country Travel Within the Last 8 Weeks: No Exposure or Possible Exposure to Illness During Travel: No - Family History Daughter Name: Chastity Hicks Age: 50 Family Member Ethnicity: Non- Living Status: Still Living Hx Family Cardiac Disorders: No Hx Family Respiratory Disorders: No Hx Family Cancer: No Hx Family GI Disorders: No Hx Family Genitourinary Disorders: No Hx Family Endocrine Disorder: No Hx Family Musculoskeletal Disorders: No Hx Family Neuromuscular Disorders: No Hx Family Neurologic Disorders: No Hx Family HEENT Disorders: No Hx Family Autoimmune Disorders: No Hx Family Reproductive Disorders: No Hx Family Psychosocial Disorders: No Hx Family Medical Disorders: No Mother Living Status: Hx Family Respiratory Disorders: Yes (COPD) Hx Family Endocrine Disorder: Yes Consult Discharge Plan - Plan Referrals: NONE,PCP [Primary Care Provider] - - Attending Attestation I have personally performed a face to face evaluation on this patient. I have reviewed and agree with the care plan. History and Exam by me shows: This is an addendum to original report dictated by Meseret Hess CNP. Eduardoasre refer to Meseret's note for full details.Agree with above HPI, ROS and PE findings. both daughters at bedside. discussed with them at length Assessment and Plan: 1.PJI - R hip with proteus 2.bacteremia with proteus 3.s/p fall May 11 s/p requiring ORIF 4.parkinsons disease 5.chronic pain Recommendations: Check baseline ESR and CRP. Await final ID and sensitivities on blood cultures. Await repeat blood cultures to finalize. Await intraoperative cultures. Postop care per the orthopedics team. Discontinue cefepime. Start Rocephin 2 g IV daily. Duration of treatment depends on the clinical picture, but likely 4-6 weeks. Consults vascular access team for IV placement prior to discharge. We will need weekly CBC, BUN/creatinine, ESR, and CRP. Will need weekly IV care per protocol. Follow up with ID 06/12/19 at 1400.
[2019-05-25] MEDS: cefTRIAXone 2,000 MG in Water for inj. (sterile) 20 ML IVP SCH (16:00)
[2019-05-26] MEDS: Cefepime HCl 2,000 MG in Water for inj. (sterile) 20 ML IVP SCH (00:44)
[2019-05-26] MEDS: Ringers Solution, Lactated 1,000 ML IVC SCH ×2 (01:26→14:43)
[2019-05-26 05:02] LABS: Calcium 7.8 mg/dL (8.6-10.3); Potassium 4.2 mEq/L (3.5-5.1)
[2019-05-26] MEDS: *HR* LORazepam 2 MG/ML VIAL IVP PRN (05:53)
[2019-05-26 05:54] LABS: Basophils # 0.1 K/mcL (0.0-0.2); Basophils % 0.7 %; Eosinophils # 0.8 K/mcL (0.0-0.6); Eosinophils % 5.8 %; Hematocrit 33.2 % (37.5-50.1); Hemoglobin 10.3 g/dL (12.9-16.9); Immature Granulocytes % 2.4 % (0-4); Lymphocytes % 14.8 %; Mean Corpuscular Hemoglobin 30.9 pg (28.0-33.3); Mean Corpuscular Volume 99.7 fL (83.0-100.0); Mean Platelet Volume 11.6 fL (9.4-12.4); Monocytes # 1.1 K/mcL (0.0-1.3); Monocytes % 8.5 %; Platelet Count 473 K/mcL (140-400); Red Blood Count 3.33 M/mcL (4.19-5.50); Red Cell Distribution Width 14.4 % (11.5-14.5); Segmented Neutrophils % 67.8 %; White Blood Count 13.2 K/mcL (4.3-11.1)
[2019-05-26] MEDS: Acetaminophen IV 1,000 MG/100 ML INFUS..BTL IVPB PRN ×2 (05:54→15:07)
[2019-05-26] MEDS: Carbidopa/Levodopa ER 50/200 TABLET PO SCH ×2 (09:05→21:47)
[2019-05-26] MEDS: Finasteride 5 MG TABLET PO SCH (09:05)
[2019-05-26] MEDS: Multivit/Ca/Min/Fe/FA 1 TAB TABLET PO SCH (09:08)
[2019-05-26] MEDS: Ascorbic Acid 500 MG TABLET PO SCH ×2 (09:08→16:21)
--- NOTE | 2019-05-26 10:29 | Orthopedics Progress Note ---
Date of Encounter: 05/26/19 Time of Encounter: 10:28 Subjective Interval history: S: No overnight events O: Afebrile and vital signs are stable Operative extremity dressing is clean, dry, and intact. Drain with moderate output Good perfusion of the right foot Cultures noted A: Post I&D of the right hip for infection P: Resume postoperative care Continue IV antibiotics per the primary team and ID, anticipate 4-6 weeks treatment We will continue drain for now Objective Vital signs: Vital Signs Temp Pulse Resp BP Pulse Ox 05/26/19 10:21 98.5 F 89 16 121/74 100 05/26/19 06:27 98.9 F 91 16 132/75 100 05/25/19 22:16 98.6 F 88 20 100/65 100 05/25/19 19:06 99.2 F 93 20 115/66 100 05/25/19 15:47 98.6 F 90 14 94/56 100 05/25/19 11:19 99.2 F 96 20 88/60 100 Intake and Output 05/25/19 05/26/19 05/26/19 23:59 07:59 15:59 Intake Total 270 / 1750 1000 / 1000 Output Total 380 / 520 60 / 510 450 / 510 Balance -110 / 1230 940 / 490 -450 / 490 Intake: IV Fluids 20 / 1240 1000 / 1000 Lactated Ringers 1,000 ML @ 75 1000 / 1000 mls/hr IVC .[id number] [facility] Rx#: [id number] Rocephin 2,000 MG In Water for 20 / 20 inj. (sterile) 20 ML @ 600 mls/ hr IVP Q24H [facility] Rx#:[id number] Oral 250 / 510 Output: Catheter 300 / 300 450 / 450 Wound Drainage 80 / 220 60 / 60 Right Hip 80 / 220 60 / 60 - Labs CBC & BMP: 05/26/19 04:12 05/26/19 04:12 Labs: Abnormal lab results WBC 13.2 K/mcL (4.3-11.1) H 05/26/19 04:12 RBC 3.33 M/mcL (4.19-5.50) L 05/26/19 04:12 Hgb 10.3 g/dL (12.9-16.9) L 05/26/19 04:12 Hct 33.2 % (37.5-50.1) L 05/26/19 04:12 MCHC 31.0 g/dL (31.6-35.5) L 05/26/19 04:12 Plt Count 473 K/mcL (140-400) H 05/26/19 04:12 Neutrophils # 9.0 K/mcL (1.6-8.9) H 05/26/19 04:12 Monocytes # 1.5 K/mcL (0.0-1.3) H 05/24/19 00:11 Eosinophils # 0.8 K/mcL (0.0-0.6) H 05/26/19 04:12 ESR 82 mm/hr (0-10) H 05/25/19 15:04 Sodium 146 mEq/L (136-145) H 05/25/19 03:46 Chloride 114 mEq/L (98-107) H 05/26/19 04:12 Carbon Dioxide 21 mEq/L (23-29) L 05/26/19 04:12 BUN 42 mg/dL (8-23) H 05/26/19 04:12 Creatinine 1.52 mg/dL (0.70-1.30) H 05/26/19 04:12 Est GFR ( Amer) 53 (> 60) L 05/26/19 04:12 Est GFR (Non-Af Amer) 44 (> 60) L 05/26/19 04:12 BUN/Creatinine Ratio 28 (6-26) H 05/26/19 04:12 Glucose 155 mg/dL (70-105) H 05/26/19 04:12 POC Glucose 157 mg/dL (70-99) H 05/24/19 11:42 Calculated Osmolality 310 (280-300) H 05/26/19 04:12 Calcium 7.8 mg/dL (8.6-10.3) L 05/26/19 04:12 ALT 3 Units/L (7-52) L 05/24/19 00:11 C-Reactive Protein 81 mg/L (Less than 10) H 05/25/19 15:04 Albumin 2.8 g/dL (3.5-5.7) L 05/24/19 00:11 Globulin 3.9 g/dL (2.4-3.5) H 05/24/19 00:11 Albumin/Globulin Ratio 0.7 (1.1-2.2) L 05/24/19 00:11 Prealbumin 10.4 mg/dL (17.0-34.0) L 05/26/19 04:12 Proteus species (PCR) DETECTED (Not Detect) A 05/24/19 00:11 Consult Discharge Plan - Plan Referrals: NONE,PCP [Primary Care Provider] -
[2019-05-26] MEDS: *HR* OxyCODONE Immed Rel 5 MG TABLET PO PRN ×2 (10:33→16:21)
[2019-05-26] MEDS: Silvasorb 44.4 ML TUBE TP SCH (12:51)
[2019-05-26] MEDS: Fluconazole 200 MG/100 ML 200 MG/100 ML BAG IVPB SCH (12:59)
--- NOTE | 2019-05-26 14:33 | Internal Med Progress Note ---
Hospitalist Progress Note - Encounter Date of Encounter: 05/26/19 Time of Encounter: 10:20 - Subjective Interval History: Patient was seen with his family this morning. He does open eyes to verbal stimuli otherwise he was somnolent. - Exam Vitals: Temp Pulse Resp BP Pulse Ox 98.5 F 89 16 121/74 100 05/26/19 10:21 05/26/19 10:21 05/26/19 10:21 05/26/19 10:21 05/26/19 10:21 Exam: General: Patient is somnolent and open eyes to verbal stimuli. Head: Atraumatic, normal inspection, Eye: EOMI, PERRLA, ENT: Mucous membranes moist. Neck: Normal inspection Respiratory: No respiratory distress, rhonchi, or wheezes noted. Cardiovascular: Regular rate and regular rhythm, No murmurs, rubs, or gallops. GI: Soft, nondistended, normal bowel sounds. Extremities: right hip drainage with seroangious drainage. Neurological: smnolent Psychiatric: normal affect, normal mood. Skin: Dry, intact, warm. - Assessment and Plan (1) Status post total hip replacement, right Current Visit: Yes Status: Acute (2) DVT prophylaxis Current Visit: Yes Status: Acute (3) Leukocytosis Current Visit: Yes Status: Resolved (4) Sepsis Current Visit: Yes Status: Resolved (5) Parkinson disease Current Visit: Yes Status: Chronic (6) CAD (coronary artery disease) Current Visit: Yes Status: Chronic (7) Oral thrush Current Visit: Yes Status: Acute (8) Protein calorie malnutrition Current Visit: Yes Status: Acute (9) Infection of right prosthetic hip joint Current Visit: Yes Status: Acute - Summary of Assessment and Plan Summary of Assessment and Plan: Mr. Pratt is a 84 year old male with a past medical history of dementia, Parkinson's, hypertension, CAD status post [place], CKD4, BPH presenting with complaints of having drainage from surgery site. Right hip septic arthritis: S/P wash out and drainage, POD-2. Cx growing Proteus and Enterococcus faecalis was sensitive to ampicillin but patient has penicillin allergy. ID is following. Continue Rocephin and add vancomycin today. Pain management as per orthopedic surgery. Patient is afebrile and hemodynamically stable. Leukocytosis improving. Check CBC tomorrow. sepsis: meet 2/4 criteria, managemet as per above. He is afebrile, hemodynamically stable. Follow-up blood cultures are still negative. Continue IV antibiotics as per above. oral Thrush: start on fluconazole KILO on CKD stage III: Cr is at baseline. Continue to monitor History of Parkinson disease: Continue home medication History of dementia: On Ativan for agitation, cannot use antipsychotics due to Parkinson. Protein malnutrition: Prealbumin is low, nutrition is on board. Goals of cares: Family had a meeting with palliative team yesterday patient CODE STATUS is DNR comfort care arrest DVT prophylaxis: scd - Time Spent with Patient Total time spent is greater than 50% in coordination of care (as documented) at patient's floor/unit and/or counseling patient: Greater than 35 minutes Plan of Care Discussed with: family Internal Medicine: Result - Labs CBC & Chem 7: 05/26/19 04:12 05/26/19 04:12 Labs: Short CBC 05/26/19 Range/Units 04:12 WBC 13.2 H (4.3-11.1) K/mcL Hgb 10.3 L (12.9-16.9) g/dL Hct 33.2 L (37.5-50.1) % Plt Count 473 H (140-400) K/mcL Neutrophils # 9.0 H (1.6-8.9) K/mcL BMP 05/26/19 04:12 Sodium 143 Potassium 4.2 Chloride 114 H Carbon Dioxide 21 L BUN 42 H Creatinine 1.52 H Glucose 155 H Calcium 7.8 L Consult Discharge Plan - Plan Referrals: NONE,PCP [Primary Care Provider] - (3) Leukocytosis Qualifiers: Leukocytosis type: unspecified Qualified Code(s): D72.829 - Elevated white blood cell count, unspecified (4) Sepsis Qualifiers: Sepsis type: sepsis due to unspecified organism Sepsis acute organ dysfunction status: with acute organ dysfunction Severe sepsis acute organ dysfunction type: acute renal failure Acute renal failure type: unspecified Severe sepsis shock status: without septic shock Qualified Code(s): A41.9 - Sepsis, unspecified organism; R65.20 - Severe sepsis without septic shock; N17.9 - Acute kidney failure, unspecified (6) CAD (coronary artery disease) Qualifiers: Coronary Disease-Associated Artery/Lesion type: [place] artery [place] vs. transplanted heart: [place] heart Associated angina: without angina Qualified Code(s): I25.10 - Atherosclerotic heart disease of [place] coronary artery without angina pectoris (8) Protein calorie malnutrition Qualifiers: Protein-calorie malnutrition severity: unspecified severity Qualified Code(s): E46 - Unspecified protein-calorie malnutrition (9) Infection of right prosthetic hip joint Qualifiers: Encounter type: initial encounter Qualified Code(s): T84.51XA - Infection and inflammatory reaction due to internal right hip prosthesis, initial encounter
[2019-05-26] MEDS: cefTRIAXone 2,000 MG in Water for inj. (sterile) 20 ML IVP SCH (14:42)
[2019-05-26] MEDS: Leptospermum Honey Gel 44 ML TUBE TP SCH (16:21)
[2019-05-26] MEDS: traMADol 50 MG TABLET PO PRN (21:49)
[2019-05-27] MEDS: *HR* OxyCODONE Immed Rel 5 MG TABLET PO PRN ×3 (02:59→15:29)
[2019-05-27] MEDS: Acetaminophen IV 1,000 MG/100 ML INFUS..BTL IVPB PRN ×3 (03:08→18:22)
[2019-05-27 06:39] LABS: Hematocrit 30.9 % (37.5-50.1); Hemoglobin 9.6 g/dL (12.9-16.9); Mean Corpuscular HGB Conc 31.1 g/dL (31.6-35.5); Mean Corpuscular Hemoglobin 30.8 pg (28.0-33.3); Mean Platelet Volume 11.3 fL (9.4-12.4); Platelet Count 449 K/mcL (140-400); Red Blood Count 3.12 M/mcL (4.19-5.50); Red Cell Distribution Width 14.3 % (11.5-14.5); White Blood Count 11.9 K/mcL (4.3-11.1)
[2019-05-27 06:59] LABS: BUN/Creatinine Ratio 22 (6-26); Blood Urea Nitrogen 29 mg/dL (8-23); Calcium 8.1 mg/dL (8.6-10.3); Carbon Dioxide 24 mEq/L (23-29); Chloride 114 mEq/L (98-107); Glucose 183 mg/dL (70-105); Osmolality,Calculated 305 (280-300); Sodium 142 mEq/L (136-145); eGFR For African Americans > 60 (> 60); eGFR For Non-African Americans 52 (> 60)
[2019-05-27] MEDS: Carbidopa/Levodopa ER 50/200 TABLET PO SCH ×2 (10:13→21:16)
[2019-05-27] MEDS: Finasteride 5 MG TABLET PO SCH (10:13)
[2019-05-27] MEDS: Fluconazole 200 MG/100 ML 200 MG/100 ML BAG IVPB SCH (10:20)
[2019-05-27] MEDS: Ascorbic Acid 500 MG TABLET PO SCH ×2 (10:20→15:29)
[2019-05-27] MEDS: Multivit/Ca/Min/Fe/FA 1 TAB TABLET PO SCH (10:36)
--- NOTE | 2019-05-27 11:53 | Internal Med Progress Note ---
Hospitalist Progress Note - Encounter Date of Encounter: 05/27/19 Time of Encounter: 10:40 - Subjective Interval History: Patient was seen this morning with his daughter at bedside. As per the daughter, he had a good night sleep. He ate part of his breakfast by her assistance. - Exam Vitals: Temp Pulse Resp BP Pulse Ox 98.2 F 84 21 119/68 100 05/27/19 06:13 05/27/19 06:13 05/27/19 06:13 05/27/19 06:13 05/27/19 09:00 Exam: General: Patient is alert, somnolont. Head: Atraumatic, normal inspection, Eye: EOMI, PERRLA, ENT: Mucous membranes moist. Neck: Normal inspection Respiratory: No respiratory distress, rhonchi, or wheezes noted. Cardiovascular: Regular rate and regular rhythm, No murmurs, rubs, or gallops. GI: Soft, nondistended, normal bowel sounds. Extremities: right hip drainage with seroangious drainage. Neurological: smnolent Psychiatric: normal affect, normal mood. Skin: Dry, intact, warm. - Assessment and Plan (1) Status post total hip replacement, right Current Visit: Yes Status: Acute (2) DVT prophylaxis Current Visit: Yes Status: Acute (3) Leukocytosis Current Visit: Yes Status: Resolved (4) Sepsis Current Visit: Yes Status: Resolved (5) Parkinson disease Current Visit: Yes Status: Chronic (6) CAD (coronary artery disease) Current Visit: Yes Status: Chronic (7) Oral thrush Current Visit: Yes Status: Acute (8) Protein calorie malnutrition Current Visit: Yes Status: Acute (9) Infection of right prosthetic hip joint Current Visit: Yes Status: Acute - Summary of Assessment and Plan Summary of Assessment and Plan: Mr. Pratt is a 84 year old male with a past medical history of dementia, Parkinson's, hypertension, CAD status post CT, CKD4, BPH presenting with complaints of having drainage from surgery site. Right hip septic arthritis: S/P wash out and drainage, POD-3. Cx growing Proteus and Enterococcus faecalis was sensitive to ampicillin but patient has penicillin allergy. ID is following. Continue Rocephin and vancomycin added on 05/26. Pain management as per orthopedic surgery. Patient is afebrile and hemodynam ically stable. Leukocytosis improving. Check CBC tomorrow. sepsis: meet 2/4 criteria, managemet as per above. He is afebrile, hemodynamically stable. Follow-up blood cultures are still negative. Continue IV antibiotics as per above. oral Thrush: start on fluconazole day 2/ KILO on CKD stage III: improving, Cr is at baseline. Continue to monitor History of Parkinson disease: Continue home medication History of dementia: On Ativan for agitation, cannot use antipsychotics due to Parkinson. Protein malnutrition: Prealbumin is low, nutrition is on board. Goals of cares: Family had a meeting with palliative team yesterday patient CODE STATUS is DNR comfort care arrest DVT prophylaxis: scd I reviewed independently all laboratory workup, pertinent images including x- rays and CT scans. I also reviewed independently and EKGs and my findings are in the body of my assessment and plan. I ordered the laboratory workup and images myself. I discussed finding with patient's, their families, RN's and consultants involved in the care of the patient. - Time Spent with Patient Total time spent is greater than 50% in coordination of care (as documented) at patient's floor/unit and/or counseling patient: Plan of Care Discussed with: family Internal Medicine: Result - Labs CBC & Chem 7: 05/27/19 05:56 05/27/19 05:56 Labs: Short CBC 05/27/19 Range/Units 05:56 WBC 11.9 H (4.3-11.1) K/mcL Hgb 9.6 L (12.9-16.9) g/dL Hct 30.9 L (37.5-50.1) % Plt Count 449 H (140-400) K/mcL BMP 05/27/19 05:56 Sodium 142 Potassium 4.0 Chloride 114 H Carbon Dioxide 24 BUN 29 H Creatinine 1.31 H Glucose 183 H Calcium 8.1 L Consult Discharge Plan - Plan Referrals: NONE,PCP [Primary Care Provider] - (3) Leukocytosis Qualifiers: Leukocytosis type: unspecified Qualified Code(s): D72.829 - Elevated white blood cell count, unspecified (4) Sepsis Qualifiers: Sepsis type: sepsis due to unspecified organism Sepsis acute organ dysfun ction status: with acute organ dysfunction Severe sepsis acute organ dysfu nction type: acute renal failure Acute renal failure type: unspecified Severe sepsis shock status: without septic shock Qualified Code(s): A41.9 - Sepsis, unspecified organism; R65.20 - Severe sepsis without septic shock; N17.9 - Acute kidney failure, unspecified (6) CAD (coronary artery disease) Qualifiers: Coronary Disease-Associated Artery/Lesion type: [place] artery [place] vs. transplanted heart: [place] heart Associated angina: without angina Qualified Code(s): I25.10 - Atherosclerotic heart disease of [place] coronary artery without angina pectoris (8) Protein calorie malnutrition Qualifiers: Protein-calorie malnutrition severity: unspecified severity Qualified Code(s): E46 - Unspecified protein-calorie malnutrition (9) Infection of right prosthetic hip joint Qualifiers: Encounter type: initial encounter Qualified Code(s): T84.51XA - Infection and inflammatory reaction due to internal right hip prosthesis, initial encounter
[2019-05-27] MEDS: HYDROcodone BIT/Homatropine 5 MG TABLET PO PRN (11:55)
--- NOTE | 2019-05-27 13:14 | Orthopedics Progress Note ---
Date of Encounter: 05/27/19 Time of Encounter: 13:14 Subjective Interval history: S: No overnight events O: Afebrile and vital signs are stable Operative extremity dressing is clean, dry, and intact. Drain pulled. Good perfusion of the right foot Cultures noted A: Post I&D of the right hip for infection P: Resume postoperative care Continue IV antibiotics per the primary team and ID, anticipate 4-6 weeks treatment Objective Vital signs: Vital Signs Temp Pulse Resp BP Pulse Ox 05/27/19 11:50 98.7 F 95 18 125/75 100 05/27/19 09:00 100 05/27/19 06:13 98.2 F 84 21 119/68 100 05/26/19 23:05 98.8 F 91 17 126/58 100 05/26/19 17:17 98.7 F 92 15 122/78 100 Intake and Output 05/26/19 05/27/19 05/27/19 23:59 07:59 15:59 Intake Total 100 / 100 Output Total 20 / 970 700 / 700 Balance -20 / 1350 -600 / -600 Intake: IV Fluids 100 / 100 Ofirmev 1,000 mg/100 ml 1,000 100 / 100 mg In 100 ml @ 400 mls/hr IVPB Q6HR [facility] Rx#:[id number] Output: Catheter 700 / 700 Wound Drainage 20 / 120 Right Hip 20 / 120 Other: Weight 82 kg - Labs CBC & BMP: 05/27/19 05:56 05/27/19 05:56 Labs: Abnormal lab results WBC 11.9 K/mcL (4.3-11.1) H 05/27/19 05:56 RBC 3.12 M/mcL (4.19-5.50) L 05/27/19 05:56 Hgb 9.6 g/dL (12.9-16.9) L 05/27/19 05:56 Hct 30.9 % (37.5-50.1) L 05/27/19 05:56 MCHC 31.1 g/dL (31.6-35.5) L 05/27/19 05:56 Plt Count 449 K/mcL (140-400) H 05/27/19 05:56 Neutrophils # 9.0 K/mcL (1.6-8.9) H 05/26/19 04:12 Monocytes # 1.5 K/mcL (0.0-1.3) H 05/24/19 00:11 Eosinophils # 0.8 K/mcL (0.0-0.6) H 05/26/19 04:12 ESR 82 mm/hr (0-10) H 05/25/19 15:04 Sodium 146 mEq/L (136-145) H 05/25/19 03:46 Chloride 114 mEq/L (98-107) H 05/27/19 05:56 Carbon Dioxide 21 mEq/L (23-29) L 05/26/19 04:12 BUN 29 mg/dL (8-23) H 05/27/19 05:56 Creatinine 1.31 mg/dL (0.70-1.30) H 05/27/19 05:56 Est GFR ( Amer) 53 (> 60) L 05/26/19 04:12 Est GFR (Non-Af Amer) 52 (> 60) L 05/27/19 05:56 BUN/Creatinine Ratio 28 (6-26) H 05/26/19 04:12 Glucose 183 mg/dL (70-105) H 05/27/19 05:56 POC Glucose 157 mg/dL (70-99) H 05/24/19 11:42 Calculated Osmolality 305 (280-300) H 05/27/19 05:56 Calcium 8.1 mg/dL (8.6-10.3) L 05/27/19 05:56 ALT 3 Units/L (7-52) L 05/24/19 00:11 C-Reactive Protein 81 mg/L (Less than 10) H 05/25/19 15:04 Albumin 2.8 g/dL (3.5-5.7) L 05/24/19 00:11 Globulin 3.9 g/dL (2.4-3.5) H 05/24/19 00:11 Albumin/Globulin Ratio 0.7 (1.1-2.2) L 05/24/19 00:11 Prealbumin 10.4 mg/dL (17.0-34.0) L 05/26/19 04:12 Proteus species (PCR) DETECTED (Not Detect) A 05/24/19 00:11 Consult Discharge Plan - Plan Referrals: NONE,PCP [Primary Care Provider] -
[2019-05-27] MEDS: cefTRIAXone 2,000 MG in Water for inj. (sterile) 20 ML IVP SCH (15:30)
[2019-05-27] MEDS: Leptospermum Honey Gel 44 ML TUBE TP SCH (15:32)
[2019-05-27] MEDS: Silvasorb 44.4 ML TUBE TP SCH ×2 (15:33→19:13)
[2019-05-27] MEDS ORDERED: *HR* OxyCODONE Immed Rel 5 MG TABLET PO PRN (16:42)
[2019-05-27] MEDS: *HR* OxyCODONE/APAP 5/325 TABLET PO SCH (18:21)
[2019-05-28] MEDS: *HR* OxyCODONE/APAP 5/325 TABLET PO SCH ×4 (00:24→18:10)
[2019-05-28 04:42] LABS: Hematocrit 34.8 % (37.5-50.1); Hemoglobin 10.9 g/dL (12.9-16.9); Mean Corpuscular HGB Conc 31.3 g/dL (31.6-35.5); Mean Corpuscular Volume 98.9 fL (83.0-100.0); Mean Platelet Volume 11.1 fL (9.4-12.4); Platelet Count 473 K/mcL (140-400); Red Blood Count 3.52 M/mcL (4.19-5.50); Red Cell Distribution Width 14.5 % (11.5-14.5); White Blood Count 13.8 K/mcL (4.3-11.1)
[2019-05-28] MEDS: Ringers Solution, Lactated 1,000 ML IVC SCH ×2 (04:52→19:24)
[2019-05-28 05:10] LABS: Calcium 8.4 mg/dL (8.6-10.3)
--- NOTE | 2019-05-28 06:25 | Orthopedics Progress Note ---
Date of Encounter: 05/28/19 Time of Encounter: 06:23 Subjective Principal diagnosis: right hip irrigation and debridement Interval history: Patient was seen this morning the most awake and alert I have seen him vital signs stable. Operative extremity: Neurovascularly intact Dressing clean dry and intact Calves nontender Assessment and plan: Continue with postoperative care Patient growing enterococcus and Proteus IV antibiotics 6 weeks Objective Vital signs: Vital Signs Temp Pulse Resp BP Pulse Ox 05/28/19 03:44 98.3 F 84 20 130/71 100 05/27/19 22:29 98.1 F 80 20 134/76 100 05/27/19 19:18 98.7 F 98 16 125/73 99 05/27/19 11:50 98.7 F 95 18 125/75 100 05/27/19 09:00 100 Intake and Output 05/27/19 05/27/19 05/28/19 15:59 23:59 07:59 Intake Total 320 / 1420 237 / 237 Output Total 400 / 1135 20 / 1135 500 / 500 Balance -80 / 285 -20 / 285 -263 / -263 Intake: IV Fluids 120 / 1220 Rocephin 2,000 MG In Water for inj. (sterile) 20 ML @ 600 mls/ hr IVP Q24H [facility] Rx#:[id number] Ofirmev 1,000 mg/100 ml 1,000 100 / 200 mg In 100 ml @ 400 mls/hr IVPB Q6HR [facility] Rx#:[id number] Oral 200 / 200 237 / 237 Output: Catheter 400 / 1100 500 / 500 Wound Drainage Right Hip Other: Stool Size Smear Stool Consistency soft Stool Characteristics Normal for Patient Stool Color Brown # Bowel Movement Diapers 1 - Labs CBC & BMP: 05/28/19 04:20 05/28/19 04:20 Labs: Abnormal lab results WBC 13.8 K/mcL (4.3-11.1) H 05/28/19 04:20 RBC 3.52 M/mcL (4.19-5.50) L 05/28/19 04:20 Hgb 10.9 g/dL (12.9-16.9) L 05/28/19 04:20 Hct 34.8 % (37.5-50.1) L 05/28/19 04:20 MCHC 31.3 g/dL (31.6-35.5) L 05/28/19 04:20 Plt Count 473 K/mcL (140-400) H 05/28/19 04:20 Neutrophils # 9.0 K/mcL (1.6-8.9) H 05/26/19 04:12 Monocytes # 1.5 K/mcL (0.0-1.3) H 05/24/19 00:11 Eosinophils # 0.8 K/mcL (0.0-0.6) H 05/26/19 04:12 ESR 82 mm/hr (0-10) H 05/25/19 15:04 Sodium 146 mEq/L (136-145) H 05/25/19 03:46 Chloride 111 mEq/L (98-107) H 05/28/19 04:20 Carbon Dioxide 21 mEq/L (23-29) L 05/26/19 04:12 BUN 29 mg/dL (8-23) H 05/28/19 04:20 Creatinine 1.39 mg/dL (0.70-1.30) H 05/28/19 04:20 Est GFR ( Amer) 59 (> 60) L 05/28/19 04:20 Est GFR (Non-Af Amer) 49 (> 60) L 05/28/19 04:20 BUN/Creatinine Ratio 28 (6-26) H 05/26/19 04:12 Glucose 189 mg/dL (70-105) H 05/28/19 04:20 POC Glucose 157 mg/dL (70-99) H 05/24/19 11:42 Calculated Osmolality 307 (280-300) H 05/28/19 04:20 Calcium 8.4 mg/dL (8.6-10.3) L 05/28/19 04:20 ALT 3 Units/L (7-52) L 05/24/19 00:11 C-Reactive Protein 81 mg/L (Less than 10) H 05/25/19 15:04 Albumin 2.8 g/dL (3.5-5.7) L 05/24/19 00:11 Globulin 3.9 g/dL (2.4-3.5) H 05/24/19 00:11 Albumin/Globulin Ratio 0.7 (1.1-2.2) L 05/24/19 00:11 Prealbumin 10.4 mg/dL (17.0-34.0) L 05/26/19 04:12 Proteus species (PCR) DETECTED (Not Detect) A 05/24/19 00:11 Consult Discharge Plan - Plan Referrals: NONE,PCP [Primary Care Provider] -
[2019-05-28] MEDS: Finasteride 5 MG TABLET PO SCH (09:29)
[2019-05-28] MEDS: Carbidopa/Levodopa ER 50/200 TABLET PO SCH ×2 (09:29→20:18)
[2019-05-28] MEDS: Ascorbic Acid 500 MG TABLET PO SCH ×2 (09:29→18:10)
[2019-05-28] MEDS: Multivit/Ca/Min/Fe/FA 1 TAB TABLET PO SCH (09:29)
[2019-05-28] MEDS: Acetaminophen IV 1,000 MG/100 ML INFUS..BTL IVPB PRN ×2 (09:29→20:59)
--- NOTE | 2019-05-28 11:26 | Internal Med Progress Note ---
Hospitalist Progress Note - Encounter Date of Encounter: 05/28/19 Time of Encounter: 09:15 - Subjective Interval History: Patient was seen this morning, first time awake, alert. He had crying spells likely from his pain. - Exam Vitals: Temp Pulse Resp BP Pulse Ox 98.3 F 84 20 130/71 100 05/28/19 03:44 05/28/19 03:44 05/28/19 03:44 05/28/19 03:44 05/28/19 03:44 Exam: General: Patient is alert, awake, no distress Head: Atraumatic, normal inspection, Eye: EOMI, PERRLA, ENT: Mucous membranes moist. Oral thrush Neck: Normal inspection Respiratory: No respiratory distress, rhonchi, or wheezes noted. Cardiovascular: Regular rate and regular rhythm, No murmurs, rubs, or gallops. GI: Soft, nondistended, normal bowel sounds. Extremities: wound looks clean, no drainage or discharge noted. Psychiatric: normal affect, normal mood. Skin: Dry, intact, warm. - Assessment and Plan (1) Status post total hip replacement, right Current Visit: Yes Status: Acute (2) DVT prophylaxis Current Visit: Yes Status: Acute (3) Leukocytosis Current Visit: Yes Status: Acute (4) Sepsis Current Visit: Yes Status: Resolved (5) Parkinson disease Current Visit: No Status: Chronic (6) CAD (coronary artery disease) Current Visit: No Status: Chronic (7) Oral thrush Current Visit: Yes Status: Acute (8) Protein calorie malnutrition Current Visit: Yes Status: Acute (9) Infection of right prosthetic hip joint Current Visit: Yes Status: Acute - Summary of Assessment and Plan Summary of Assessment and Plan: Mr. Pratt is a 84 year old male with a past medical history of dementia, Park inson's, hypertension, CAD status post [place], CKD4, BPH presenting with complaints of having drainage from surgery site. Right hip septic arthritis: S/P wash out and drainage, POD-4, drain removed yest erday. Cx growing Proteus and Enterococcus faecalis was sensitive to ampicillin but patient has penicillin allergy. ID is following. Continue Rocephin and vancomycin added on 05/26. Pain management with scheduled percocet q6h and PRN for breakthrough pain. Patient is afebrile and hemodynamically stable. Leukocytosis worsened today. Check CBC tomorrow. sepsis: meet 2/4 criteria, managemet as per above. He is afebrile, hemodynamically stable. Follow-up blood cultures are still negative. Continue IV antibiotics as per above. oral Thrush: start on fluconazole day 3/ KILO on CKD stage III: Cr is at baseline. Continue to monitor History of Parkinson disease: Continue home medication History of dementia: On Ativan for agitation, cannot use antipsychotics due to Parkinson. Protein malnutrition: Prealbumin is low, nutrition is on board. Goals of cares: Family will meet with palliative today. They have hard time accepting the degree of pain patient may have with PT. I explained to them, that having him immobile will cause a decline in his status and some degree of pain should be tolerated otherwise moving to comfort care will be the optimum. DVT prophylaxis: scd Disposition: will need rehab, social professionals is on board. I reviewed independently all laboratory workup, pertinent images including x- rays and CT scans. I also reviewed independently and EKGs and my findings are in the body of my assessment and plan. I ordered the laboratory workup and i mages myself. I discussed finding with patient's, their families, RN's and consultants involved in the care of the patient. - Time Spent with Patient Total time spent is greater than 50% in coordination of care (as documented) at patient's floor/unit and/or counseling patient: Plan of Care Discussed with: family Internal Medicine: Result - Labs CBC & Chem 7: 05/28/19 04:20 05/28/19 04:20 Labs: Short CBC 05/28/19 Range/Units 04:20 WBC 13.8 H (4.3-11.1) K/mcL Hgb 10.9 L (12.9-16.9) g/dL Hct 34.8 L (37.5-50.1) % Plt Count 473 H (140-400) K/mcL BMP 05/28/19 04:20 Sodium 143 Potassium 4.0 Chloride 111 H Carbon Dioxide 25 BUN 29 H Creatinine 1.39 H Glucose 189 H Calcium 8.4 L Consult Discharge Plan - Plan Referrals: NONE,PCP [Primary Care Provider] - (3) Leukocytosis Qualifiers: Leukocytosis type: unspecified Qualified Code(s): D72.829 - Elevated white blood cell count, unspecified (4) Sepsis Qualifiers: Sepsis type: sepsis due to unspecified organism Sepsis acute organ dysfunction status: with acute organ dysfunction Severe sepsis acute organ dysfunction type: acute renal failure Acute renal failure type: unspecified Severe sepsis shock status: without septic shock Qualified Code(s): A41.9 - Sepsis, unspecified organism; R65.20 - Severe sepsis without septic shock; N17.9 - Acute kidney failure, unspecified (6) CAD (coronary artery disease) Qualifiers: Coronary Disease-Associated Artery/Lesion type: [place] artery [place] vs. transplanted heart: [place] heart Associated angina: without angina Qualified Code(s): I25.10 - Atherosclerotic heart disease of [place] coronary artery without angina pectoris (8) Protein calorie malnutrition Qualifiers: Protein-calorie malnutrition severity: unspecified severity Qualified Code(s): E46 - Unspecified protein-calorie malnutrition (9) Infection of right prosthetic hip joint Qualifiers: Encounter type: initial encounter Qualified Code(s): T84.51XA - Infection and inflammatory reaction due to internal right hip prosthesis, initial encounter
--- NOTE | 2019-05-28 11:30 | Palliative Progress Note ---
Date of Encounter: 05/28/19 Time of Encounter: 11:10 - Assessment and plan (1) Neuropathy Current Visit: Yes Status: Acute Assessment and plan: Will begin Gabapentin 300mg po QHS and monitor (2) Right hip pain Current Visit: Yes Status: Acute Assessment and plan: Percocet was scheduled over the weekend. Daughter state that they feel hip pain better controlled. He has still received IV Ofirmev intermittently and has po Oxycodone for breakthrough as well. (3) Decreased oral intake Current Visit: Yes Status: Acute Assessment and plan: Rd Scientist following. Receiving supplements/protein. (4) Advance care planning Current Visit: Yes Status: Acute Assessment and plan: D/W both daughters at length again this am. They had questions again regarding code status, and what transition to DNRCC would entail. They asked questions regarding hospice as well. I have discussed at length with them, that hospice would not do aggressive therapy and IV atb. Discussed that he can transition to DNRCC which may mean that ECF more liberal with his pain medication, but that he can continue IV atb and therapy. Discussed if he does poorly at the ECF, has further decline, or another medical event that they do not want him transitioned to hospital for, they could contact the [facility] delinquency prevention social worker to complete a hospice referral. I am supposed to revisit again this afternoon for final decision regarding DNR. TOtal ACP time 60 min. (5) Palliative care encounter Current Visit: Yes Status: Acute (6) Parkinson disease Current Visit: No Status: Chronic (7) Status post total hip replacement, right Current Visit: Yes Status: Acute - Time Spent With Patient Total time spent is greater than 50% in coordination of care (as documented) at patient's floor/unit and/or counseling patient: 25 - 35 minutes - Subjective Interval history: Patient was awake, alert, however confused and mumbling. Daughters at bedside state that he is "hypersensitive" to pain and stimulation,, and at times cries out if someone even touches the bed. They do state that he seems better with the scheduled Percocet with his hip pain. Daughter states that he c/o burning and stinging frequently to bilateral feet, and states that he has had these complaints for quite a while. Asking if he can be started on something for neuropathy. He is eating fairly well. + BM. - Constitutional Vitals: Abnormal lab results WBC 13.8 K/mcL (4.3-11.1) H 05/28/19 04:20 RBC 3.52 M/mcL (4.19-5.50) L 05/28/19 04:20 Hgb 10.9 g/dL (12.9-16.9) L 05/28/19 04:20 Hct 34.8 % (37.5-50.1) L 05/28/19 04:20 MCHC 31.3 g/dL (31.6-35.5) L 05/28/19 04:20 Plt Count 473 K/mcL (140-400) H 05/28/19 04:20 Neutrophils # 9.0 K/mcL (1.6-8.9) H 05/26/19 04:12 Monocytes # 1.5 K/mcL (0.0-1.3) H 05/24/19 00:11 Eosinophils # 0.8 K/mcL (0.0-0.6) H 05/26/19 04:12 ESR 82 mm/hr (0-10) H 05/25/19 15:04 Sodium 146 mEq/L (136-145) H 05/25/19 03:46 Chloride 111 mEq/L (98-107) H 05/28/19 04:20 Carbon Dioxide 21 mEq/L (23-29) L 05/26/19 04:12 BUN 29 mg/dL (8-23) H 05/28/19 04:20 Creatinine 1.39 mg/dL (0.70-1.30) H 05/28/19 04:20 Est GFR ( Amer) 59 (> 60) L 05/28/19 04:20 Est GFR (Non-Af Amer) 49 (> 60) L 05/28/19 04:20 BUN/Creatinine Ratio 28 (6-26) H 05/26/19 04:12 Glucose 189 mg/dL (70-105) H 05/28/19 04:20 POC Glucose 157 mg/dL (70-99) H 05/24/19 11:42 Calculated Osmolality 307 (280-300) H 05/28/19 04:20 Calcium 8.4 mg/dL (8.6-10.3) L 05/28/19 04:20 ALT 3 Units/L (7-52) L 05/24/19 00:11 C-Reactive Protein 81 mg/L (Less than 10) H 05/25/19 15:04 Albumin 2.8 g/dL (3.5-5.7) L 05/24/19 00:11 Globulin 3.9 g/dL (2.4-3.5) H 05/24/19 00:11 Albumin/Globulin Ratio 0.7 (1.1-2.2) L 05/24/19 00:11 Prealbumin 10.4 mg/dL (17.0-34.0) L 05/26/19 04:12 Proteus species (PCR) DETECTED (Not Detect) A 05/24/19 00:11 General appearance: Present: no acute distress - Respiratory Respiratory exam: Present: decreased breath sounds, CTAB - Cardiovascular Cardiovascular exam: Present: +S1, +S2 - GI/Abdominal GI/Abdominal exam: Present: normal bowel sounds, soft - Extremities Exam Extremities exam: Present: normal capillary refill, normal inspection - Neurological Exam Neurological exam: Present: alert, altered - Skin Skin exam: Present: dry, pallor, warm Palliative Quality Palliative Quality: Screen for Code Status: Yes, Screen for Goals of Care: Yes, Screen for Pain: NA (Taken to OR), If Pain Regimen Started, Initiate Bowel Regimen: NA, Screen for Nausea/Vomitting: NA Code Status: 05/23/19 17:37 Resuscitation Status: Active [RES] Routine Comment: Resuscitation Status: Full Code 05/24/19 13:18 DNR [Resuscitation Status: Active] [RES] Routine Comment: Resuscitation Status: DNR-Comfort Care-Arrest - Labs CBC & Chem 7: 05/28/19 04:20 05/28/19 04:20 Labs: Laboratory Results - last 24 hr 05/28/19 05/28/19 05/28/19 04:20 04:20 04:20 WBC 13.8 H RBC 3.52 L Hgb 10.9 L Hct 34.8 L MCV 98.9 MCH 31.0 MCHC 31.3 L RDW 14.5 Plt Count 473 H MPV 11.1 Sodium 143 Potassium 4.0 Chloride 111 H Carbon Dioxide 25 BUN 29 H Creatinine 1.39 H Est GFR ( Amer) 59 L Est GFR (Non-Af Amer) 49 L BUN/Creatinine Ratio 21 Glucose 189 H Calculated Osmolality 307 H Calcium 8.4 L TSH 1.028 Consult Discharge Plan - Plan Referrals: NONE,PCP [Primary Care Provider] -
[2019-05-28] MEDS: Fluconazole 200 MG/100 ML 100 MG/50 ML BAG IVPB SCH (11:34)
--- NOTE | 2019-05-28 12:41 | Infectious Disease Progress No ---
ID Progress Note Date of Encounter: 05/28/19 Time of Encounter: 12:41 - Subjective Subjective: Patient seen and examined with daughter at the bedside. No acute events noted overnight. Patient awake and cooperative with exam, but ROS limited. Patient does not answer questions appropriately. Per his daughter, he was able to eat some, but has been complaining that his mouth is sore. He has not had a BM in two days. Ho catheter remains patent. - Objective CBC & Chem 7: 05/29/19 05:07 05/29/19 05:07 - Exam Vitals: Temp Pulse Resp BP Pulse Ox 97.8 F 88 18 133/78 100 05/28/19 11:00 05/28/19 11:00 05/28/19 11:00 05/28/19 11:00 05/28/19 11:00 Exam: Head: Atraumatic, normal inspection, normocephalic. Eye: EOMI, PERRLA, no scleral icterus noted. ENT: Mucous membranes dry. No odontogenic infection noted. Neck: Normal inspection, no meningismus. Respiratory: Clear to auscultation. No rales, respiratory distress, rhonchi, or wheezes noted. Cardiovascular: Regular rate and rhythm, S1 and S2 audible. No murmurs, rubs, or gallops. GI: Soft, nondistended, normal bowel sounds. Ho catheter draining clear yellow urine. Extremities:No joint swelling, pedal edema, or tenderness noted. Right hip dressing C/D/I. Neurological: Opens eyes to verbal stimuli, follows commands. WHITLOCK x 4 on command. Oriented to self and time. Psychiatric: normal affect, normal mood. Skin: Dry, intact, warm. Normal color. No rashes. - Assessment and Plan (1) Leukocytosis Status: Resolved WBC 87122 on admission. Likely secondary to right hip infection and bacteremia. Improved. Qualifiers: Leukocytosis type: unspecified Qualified Code(s): D72.829 - Elevated white blood cell count, unspecified SNOMED Code(s): 555434524, 971280418 (2) Bacteremia Status: Acute Causative organism: Proteus per PCR. Blood cultures drawn 05/24/19 are positive 1/2 sets for Proteus mirabilis. Repeat blood cultures drawn 05/25/19 are NGTD. Likely secondary to right PJI. Currently on IV Vanc and Rocephin. 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 Causative organism: Proteus mirabilis, bernal-sensitive and E. faecalis (ampS). Likely secondary to surgical site infection. Acute-onset. Orthopedics consulted. Status post right hip I & D 05/24/[address] Dawkins. Intra- op cultures as above. Unfortunately, the patient has a listed allergy of PCN. I discussed this with his daughters who state they do not know if this is a true allergy or not. They are agreeable to undergo PCN allergy testing in order for us to only have to use one antibiotic instead of two and so we won't have to use Vanc long-term. Currently on IV vanc and rocephin. Qualifiers: Encounter type: initial encounter Qualified Code(s): T84.51XA - Infection and inflammatory reaction due to internal right hip prosthesis, initial encounter SNOMED Code(s): 414241159, 357390672 (4) Parkinson disease Status: Chronic SNOMED Code(s): 02528802 (5) CAD (coronary artery disease) Status: Chronic Qualifiers: Coronary Disease-Associated Artery/Lesion type: [place] artery [place] vs. transplanted heart: [place] heart Associated angina: without angina Qualified Code(s): I25.10 - Atherosclerotic heart disease of [place] coronary artery without angina pectoris SNOMED Code(s): 64343728 (6) CKD (chronic kidney disease) stage 4, GFR 15-29 ml/min Status: Chronic Monitor renal function closely and dose-adjust antibiotics. Avoid nephrotoxins as able. SNOMED Code(s): 413726319 (7) CHF (congestive heart failure) Status: Chronic Qualifiers: Heart failure type: unspecified Heart failure chronicity: unspecified Qualified Code(s): I50.9 - Heart failure, unspecified SNOMED Code(s): 89708707 (8) Anemia Status: Resolved Qualifiers: Anemia type: other cause Other causes of anemia: acute posthemorrhagic Qualified Code(s): D62 - Acute posthemorrhagic anemia SNOMED Code(s): 006798484 (9) Status post total hip replacement, right Status: Acute Status post right total hip replacement 05/11/19. SNOMED Code(s): 073780121910, 353004171966 (10) Penicillin allergy Status: Acute Exact mechanism of allergy unclear. Daughters are agreeable to PCN allergy testing. Discussed with the primary team. SNOMED Code(s): 49474233 (11) Oral thrush Status: Resolved Likely secondary to recent antibiotic use. I do not appreciate any thrush at this time. Start nystatin mouthwash. Discontinue fluconazole. SNOMED Code(s): 06014014 - Recommendations Recommendations: Await repeat blood cultures to finalize. Postop care per the orthopedics team. Consult allergy/immunology for PCN allergy testing. Discontinue fluconazole. Start nystatin mouthwash. Start nystatin powder to intertrininous areas. Continue Rocephin 2 g IV daily. Continue Vancomycin IV. Pharmacy to dose. Goal trough ~15. Duration of treatment depends on the clinical picture, but likely 4-6 weeks. Consults vascular access team for IV placement prior to discharge. We will need weekly CBC, BUN/creatinine, ESR, and CRP. Will need weekly IV care per protocol. Follow up with ID 06/12/19 at 1400. Consult Discharge Plan - Plan Referrals: NONE,PCP [Primary Care Provider] - Prescriptions: Leptospermum Honey [Medihoney] 1 appl TP DAILY #1 tube Prescription Printed Gabapentin [Neurontin] 300 mg PO HS #30 capsule Prescription Printed Morphine Sulfate Oral CONC [Roxanol Oral Conc] 5 mg SL Q4HR PRN 4 Days #15 ml PRN Reason: pain or dyspnea Prescription Printed Morphine Sulfate Oral CONC [Roxanol Oral Conc] 5 mg SL Q6HR 15 Days #15 ml Prescription Printed Silvasorb 1 appl TP DAILY #1 tube Prescription Printed - Attending Attestation I have personally performed a face to face evaluation on this patient. I have reviewed and agree with the care plan. History and Exam by me shows: Assessment and Plan: 1.PJI - R hip with proteus 2.bacteremia with proteus and Enterococcus faecalis 3.s/p fallMay 11 s/p requiring ORIF 4.parkinsons disease 5.chronic pain Recommendations Continue Rocephin Continue vancomycin Nystatin swish and swallow Consultation allergy/immunology for penicillin allergy testing to see if we can switch the patient to Unasyn or Zosyn monitor labs and for drug toxicity d/w hospitalist team d/w family at bed side at length
[2019-05-28] MEDS: cefTRIAXone 2,000 MG in Water for inj. (sterile) 20 ML IVP SCH (14:53)
[2019-05-28] MEDS: Leptospermum Honey Gel 44 ML TUBE TP SCH (15:06)
--- NOTE | 2019-05-28 15:12 | Allergy Consult Note ---
Date of Encounter: 05/28/19 Time of Encounter: 15:08 Assessment and Plan (1) Adverse effect of penicillins, initial encounter Current Visit: Yes Status: Acute Patient has an unknown penicillin allergy. Due to his current infection and his risk of damage to kidneys using a non penicillin medications I believe patient is a good candidate to do penicillin testing. I explained we will first do skin pricks on the forearm with controls and different types of penicillin. If this is negative then we will do intradermals, which are a more sensitive skin test on the upper arms with the different penicillins. If that is negative then we will proceed to a graded oral challenge with amoxicillin. Patient will be given a 10% dose of amoxicillin and observed for 15 minutes. Then I will give a full dose of amoxicillin and observe them for 60 minutes. I explained that the risk of reaction with skin test and oral challenge are low but could include hives, rash, difficulty breathing, closure of airway, drop in blood pressure, and . All questions were answered. Consent was signed today. Will plan to do penicillin testing tomorrow morning. He should stay off antihistamines, beta blockers and steroids until testing is complete. Qualifiers: Encounter type: initial encounter Qualified Code(s): T36.0X5A - Adverse effect of penicillins, initial encounter History of Present Illness Consult date: 05/28/19 Reason for consult: Drug allergy Requesting physician: Marisol Parekh History of present illness: Dr. Parekh is consulting me for my opinion if Mr. Pratt is a good candidate for penicillin testing. Patient has a history of penicillin allergy but due his dementia he is not able to tell us when that was or what his reaction was. His daughters believe it had to be at least 40-50 years ago as they don't remember him having a reaction. 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 - Social History Smoking Status: Former smoker Smokeless Tobacco Status: Yes (chewing tobacco) Alcohol use: none Drug use: none - Family History Daughter Name: Chastity Hicks Age: 50 Family Member Ethnicity: Non- Living Status: Still Living Hx Family Cardiac Disorders: No Hx Family Respiratory Disorders: No Hx Family Cancer: No Hx Family GI Disorders: No Hx Family Genitourinary Disorders: No Hx Family Endocrine Disorder: No Hx Family Musculoskeletal Disorders: No Hx Family Neuromuscular Disorders: No Hx Family Neurologic Disorders: No Hx Family HEENT Disorders: No Hx Family Autoimmune Disorders: No Hx Family Reproductive Disorders: No Hx Family Psychosocial Disorders: No Hx Family Medical Disorders: No Mother Living Status: Hx Family Respiratory Disorders: Yes (COPD) Hx Family Endocrine Disorder: Yes - Additional Family History Additional family history: no family history of penicillin allergy in daughters. Medications and Allergies Carbidopa/Levodopa ER 50/200 [Sinemet ER 50-200 Tab] 1 tab PO BID 04/16/16 [History] Cyclobenzaprine [Flexeril] 10 mg PO BID 04/16/16 [History] Fenofibric Acid (Choline) [Trilipix] 135 mg PO DAILY 04/16/16 [History] Finasteride [Proscar] 5 mg PO DAILY 04/16/16 [History] Furosemide [Lasix] 40 mg PO BID 04/16/16 [History] Meloxicam [Mobic] 15 mg PO DAILY 04/16/16 [History] Pantoprazole Sodium 40 mg PO DAILY 04/16/16 [History] Potassium Chloride [K-Tab ER] 20 meq PO BID 04/16/16 [History] Simvastatin [Zocor] 40 mg PO HS 04/16/16 [History] Tamsulosin HCl [Flomax] 0.8 mg PO DAILY 10/15/16 [History] Donepezil [Aricept] 10 mg PO HS 05/10/19 [History] Acetaminophen [Pain Relief] 500 mg PO Q6H 7 Days #28 tablet 05/11/19 [Rx] Docusate [Colace] 100 mg PO BID 5 Days #10 capsule 05/11/19 [Rx] Acetaminophen [Tylenol] 650 mg PO Q6H PRN tablet 05/16/19 [Rx] HYDROcodone/Acet 5/325 mg [[place] 5-325 mg] 0.5 tab PO BID 3 Days #3 tablet 05/16/19 [Rx] Leptospermum Honey [Medihoney] 1 appl TP DAILY tube 05/16/19 [Rx] Lidocaine Patch [Lidoderm 5% patch] 1 each TP DAILY adh..patch 05/16/19 [Rx] Silvasorb 1 appl TP DAILY tube 05/16/19 [Rx] Tramadol HCl [Ultram] 50 mg PO DAILY PRN 2 Days #2 tab 05/16/19 [Rx] Allergy/AdvReac Type Severity Reaction Status Date / Time Penicillins AdvReac Swelling Verified 05/23/19 21:35 of Lip/Tongue/Throat ROS Allergy ROS unobtainable: due to mental status Allergy Exam Initial Vital Signs Pulse Ox 96 05/23/19 21:14 - Additional Findings Constitutional: alert, in no acute distress Head: Normocephalic, atraumatic Eyes:normal, conjunctiva clear Ears:Tympanic membrane normal bilaterally, canals clear bilaterally Nose: Nares patent, no drainage Mouth:Moist mucous membranes, soft palate and tongue are erythematous Neck: Supple, no lymphadenopathy noted Heart: regular rate and rhythm Lungs:clear to auscultation bilaterally, good air movement, no respiratory distress, no retractions, no wheezing Skin: dry, warm, no rashes Neuro: disoriented Musculoskeletal: muscle strength in arms and hands is weak. Results - Labs 05/28/19 04:20 05/28/19 04:20 Abnormal lab results WBC 13.8 K/mcL (4.3-11.1) H 05/28/19 04:20 RBC 3.52 M/mcL (4.19-5.50) L 05/28/19 04:20 Hgb 10.9 g/dL (12.9-16.9) L 05/28/19 04:20 Hct 34.8 % (37.5-50.1) L 05/28/19 04:20 MCHC 31.3 g/dL (31.6-35.5) L 05/28/19 04:20 Plt Count 473 K/mcL (140-400) H 05/28/19 04:20 Neutrophils # 9.0 K/mcL (1.6-8.9) H 05/26/19 04:12 Monocytes # 1.5 K/mcL (0.0-1.3) H 05/24/19 00:11 Eosinophils # 0.8 K/mcL (0.0-0.6) H 05/26/19 04:12 ESR 82 mm/hr (0-10) H 05/25/19 15:04 Sodium 146 mEq/L (136-145) H 05/25/19 03:46 Chloride 111 mEq/L (98-107) H 05/28/19 04:20 Carbon Dioxide 21 mEq/L (23-29) L 05/26/19 04:12 BUN 29 mg/dL (8-23) H 05/28/19 04:20 Creatinine 1.39 mg/dL (0.70-1.30) H 05/28/19 04:20 Est GFR ( Amer) 59 (> 60) L 05/28/19 04:20 Est GFR (Non-Af Amer) 49 (> 60) L 05/28/19 04:20 BUN/Creatinine Ratio 28 (6-26) H 05/26/19 04:12 Glucose 189 mg/dL (70-105) H 05/28/19 04:20 POC Glucose 157 mg/dL (70-99) H 05/24/19 11:42 Calculated Osmolality 307 (280-300) H 05/28/19 04:20 Calcium 8.4 mg/dL (8.6-10.3) L 05/28/19 04:20 ALT 3 Units/L (7-52) L 05/24/19 00:11 C-Reactive Protein 81 mg/L (Less than 10) H 05/25/19 15:04 Albumin 2.8 g/dL (3.5-5.7) L 05/24/19 00:11 Globulin 3.9 g/dL (2.4-3.5) H 05/24/19 00:11 Albumin/Globulin Ratio 0.7 (1.1-2.2) L 05/24/19 00:11 Prealbumin 10.4 mg/dL (17.0-34.0) L 05/26/19 04:12 Proteus species (PCR) DETECTED (Not Detect) A 05/24/19 00:11 Diabetes panel 05/28/19 Range/Units 04:20 Sodium 143 (136-145) mEq/L Potassium 4.0 (3.5-5.1) mEq/L Chloride 111 H (98-107) mEq/L Carbon Dioxide 25 (23-29) mEq/L BUN 29 H (8-23) mg/dL Creatinine 1.39 H (0.70-1.30) mg/dL Glucose 189 H (70-105) mg/dL Calcium 8.4 L (8.6-10.3) mg/dL Thyroid panel 05/28/19 Range/Units 04:20 TSH 1.028 (0.340-5.600) mcIU/mL Calcium panel 05/28/19 Range/Units 04:20 Calcium 8.4 L (8.6-10.3) mg/dL Pituitary panel 05/28/19 05/28/19 Range/Units 04:20 04:20 Sodium 143 (136-145) mEq/L Potassium 4.0 (3.5-5.1) mEq/L Chloride 111 H (98-107) mEq/L Carbon Dioxide 25 (23-29) mEq/L BUN 29 H (8-23) mg/dL Creatinine 1.39 H (0.70-1.30) mg/dL Glucose 189 H (70-105) mg/dL Calcium 8.4 L (8.6-10.3) mg/dL TSH 1.028 (0.340-5.600) mcIU/mL Adrenal panel 05/28/19 Range/Units 04:20 Sodium 143 (136-145) mEq/L Potassium 4.0 (3.5-5.1) mEq/L Chloride 111 H (98-107) mEq/L Carbon Dioxide 25 (23-29) mEq/L BUN 29 H (8-23) mg/dL Creatinine 1.39 H (0.70-1.30) mg/dL Glucose 189 H (70-105) mg/dL Calcium 8.4 L (8.6-10.3) mg/dL All other labs normal. Consult Discharge Plan - Plan Referrals: NONE,PCP [Primary Care Provider] -
[2019-05-28] MEDS: Silvasorb 44.4 ML TUBE TP SCH (15:30)
[2019-05-28] MEDS: traMADol 50 MG TABLET PO PRN (15:37)
[2019-05-28] MEDS: Gabapentin 300 MG CAPSULE PO SCH (20:19)
[2019-05-29] MEDS: *HR* OxyCODONE/APAP 5/325 TABLET PO SCH ×5 (00:05→23:46)
[2019-05-29] MEDS: Sennosides 8.6 MG TABLET PO PRN (00:13)
[2019-05-29] MEDS: traMADol 50 MG TABLET PO PRN ×3 (04:19→22:30)
[2019-05-29 05:40] LABS: Hematocrit 30.9 % (37.5-50.1); Hemoglobin 9.6 g/dL (12.9-16.9); Mean Corpuscular HGB Conc 31.1 g/dL (31.6-35.5); Mean Corpuscular Hemoglobin 30.8 pg (28.0-33.3); Mean Platelet Volume 11.2 fL (9.4-12.4); Platelet Count 434 K/mcL (140-400); Red Blood Count 3.12 M/mcL (4.19-5.50); Red Cell Distribution Width 14.3 % (11.5-14.5); White Blood Count 12.3 K/mcL (4.3-11.1)
[2019-05-29 06:06] LABS: BUN/Creatinine Ratio 21 (6-26); Blood Urea Nitrogen 25 mg/dL (8-23); Calcium 8.3 mg/dL (8.6-10.3); Carbon Dioxide 25 mEq/L (23-29); Chloride 111 mEq/L (98-107); Glucose 181 mg/dL (70-105); Osmolality,Calculated 307 (280-300); Potassium 3.9 mEq/L (3.5-5.1); Sodium 144 mEq/L (136-145); eGFR For African Americans > 60 (> 60); eGFR For Non-African Americans 59 (> 60)
--- NOTE | 2019-05-29 06:19 | Orthopedics Progress Note ---
Date of Encounter: 05/29/19 Time of Encounter: 06:19 Subjective Principal diagnosis: right hip irrigation and debridement Interval history: Patient was seen this morning vital signs stable. Operative extremity: Neurovascularly intact Dressing clean dry and intact Calves nontender Assessment and plan: Continue with postoperative care Patient growing enterococcus and Proteus IV antibiotics 6 weeks discharge as per medical team Objective Vital signs: Vital Signs Temp Pulse Resp BP Pulse Ox 05/29/19 04:28 98.8 F 81 20 133/64 100 05/28/19 22:54 99.1 F 92 17 121/63 95 05/28/19 20:05 101 F H 05/28/19 19:08 100.2 F H 105 17 129/71 100 05/28/19 11:00 97.8 F 88 18 133/78 100 05/28/19 06:45 98 F 84 16 129/76 99 Intake and Output 05/28/19 05/28/19 05/29/19 15:59 23:59 07:59 Intake Total 150 / 1487 1100 / 1487 Output Total 800 / 1300 Balance 150 / 187 300 / 187 Intake: IV Fluids 150 / 1250 1100 / 1250 Lactated Ringers 1,000 ML @ 75 1000 / 1000 mls/hr IVC .[id number] COUNTS INCLUDE 234 BEDS AT THE [facility] Rx#: [id number] Ofirmev 1,000 mg/100 ml 1,000 100 / 200 100 / 200 mg In 100 ml @ 400 mls/hr IVPB Q12HR PRN Rx#:[id number] Diflucan Premix 200 MG/100 ML 50 / 50 100 mg In 50 ml @ 50 mls/hr IVPB DAILY COUNTS INCLUDE 234 BEDS AT THE [facility] Rx#:[id number] Output: Urine 800 / 800 Other: Meal Lunch Percent of Meal Consumed 10% # Voids 1 Weight 82 kg Patient Weight 05/29/19 23:59 Weight 82 kg - Labs CBC & BMP: 05/29/19 05:07 05/29/19 05:07 Labs: Abnormal lab results WBC 12.3 K/mcL (4.3-11.1) H 05/29/19 05:07 RBC 3.12 M/mcL (4.19-5.50) L 05/29/19 05:07 Hgb 9.6 g/dL (12.9-16.9) L 05/29/19 05:07 Hct 30.9 % (37.5-50.1) L 05/29/19 05:07 MCHC 31.1 g/dL (31.6-35.5) L 05/29/19 05:07 Plt Count 434 K/mcL (140-400) H 05/29/19 05:07 Neutrophils # 9.0 K/mcL (1.6-8.9) H 05/26/19 04:12 Monocytes # 1.5 K/mcL (0.0-1.3) H 05/24/19 00:11 Eosinophils # 0.8 K/mcL (0.0-0.6) H 05/26/19 04:12 ESR 82 mm/hr (0-10) H 05/25/19 15:04 Sodium 146 mEq/L (136-145) H 05/25/19 03:46 Chloride 111 mEq/L (98-107) H 05/29/19 05:07 Carbon Dioxide 21 mEq/L (23-29) L 05/26/19 04:12 BUN 25 mg/dL (8-23) H 05/29/19 05:07 Creatinine 1.39 mg/dL (0.70-1.30) H 05/28/19 04:20 Est GFR ( Amer) 59 (> 60) L 05/28/19 04:20 Est GFR (Non-Af Amer) 59 (> 60) L 05/29/19 05:07 BUN/Creatinine Ratio 28 (6-26) H 05/26/19 04:12 Glucose 181 mg/dL (70-105) H 05/29/19 05:07 POC Glucose 157 mg/dL (70-99) H 05/24/19 11:42 Calculated Osmolality 307 (280-300) H 05/29/19 05:07 Calcium 8.3 mg/dL (8.6-10.3) L 05/29/19 05:07 ALT 3 Units/L (7-52) L 05/24/19 00:11 C-Reactive Protein 81 mg/L (Less than 10) H 05/25/19 15:04 Albumin 2.8 g/dL (3.5-5.7) L 05/24/19 00:11 Globulin 3.9 g/dL (2.4-3.5) H 05/24/19 00:11 Albumin/Globulin Ratio 0.7 (1.1-2.2) L 05/24/19 00:11 Prealbumin 10.4 mg/dL (17.0-34.0) L 05/26/19 04:12 Vancomycin Trough 30 mcg/mL (5-10) H 05/28/19 15:35 Proteus species (PCR) DETECTED (Not Detect) A 05/24/19 00:11 Consult Discharge Plan - Plan Referrals: NONE,PCP [Primary Care Provider] -
--- NOTE | 2019-05-29 06:51 | Event Note ---
Date of Encounter: 05/28/19 Time of Encounter: 11:30 Patient status post Right Total Hip Replacment robotic-assisted. Date of surgery 05/11/19. Presenting to office 05/23 with complaints from [facility] staff of brown malodorous drainage from incision. Patient admitted to hospitalist service and is now POD#5 s/p Irrigation debridement right hip 05/24/19. Patient supine in bed, daughters on either side of bed. They state he is improved, but not to "baseline". Daughter from [place] states she believes him to be "hypersensitive to everything" citing example of her shirt sleeve brushing against his arm and him crying out "in pain". Dressing with small amount of serosanguinous drainage along incision. Incision intact. JOSE FRANCISCO drain has been removed. Patient expresses grimace and grunt with palpation of the right hip and thigh. No apparent calf tenderness, erythema, or warmth bilaterally. Skin tear with bandaging noted to left calf. Appears neurovascularly intact b/l LE. Patient not able to follow commands very well today, however, patient's daughter rushing to his side and rubbing his chest with any sound he seems to make. Labwork, vitals, and medications reviewed. BC x1 prelim positive for growth. Culture swab from office found to be positive for Proteus Mirabilis. Intraop cultures positive for Proteus Mirabilis and Enterococcus. Pain control: Adequate per patient's daughters, though, as noted above they are concerned about his "hypersensitivity". Participating in therapy All questions and concerns addressed to patient's daughter's satisfaction. Addressed: With patient's positive cultures and positive BC will collaborate with infectious disease for appropriate treatment. Their input is appreciated. Recommendation for IV x 6 weeks Continue total hip precautions Daily pressure dressing changes. Patient course and disposition discussed with Dr. Dawkins, hospitalist, and palliative. D/C plan: continue postoperative care and medical management.
[2019-05-29] MEDS ORDERED: Famotidine 20 MG/2 ML VIAL IVP PRN (09:00)
[2019-05-29] MEDS ORDERED: EPINEPHrine 1 MG/ML VIAL IM PRN (09:00)
[2019-05-29] MEDS ORDERED: Amoxicillin Susp 250 MG/5 ML UDC PO ONE ×2 (09:00)
[2019-05-29] MEDS ORDERED: Penicillin test 1000 units/0.1 ml ID ONE ×2 (09:00)
[2019-05-29] MEDS ORDERED: 0.9 % Sodium Chloride 10 ML PF VIAL TP ONE ×2 (09:00)
[2019-05-29] MEDS ORDERED: methylPREDNISolone 125 MG/2 ML VIAL IVP PRN (09:00)
[2019-05-29] MEDS ORDERED: Nystatin POWDER 30 GM BOTTLE TP SCH (09:00)
[2019-05-29] MEDS ORDERED: Penicillin test 1000 units/0.1 ml TP ONE ×2 (09:00)
[2019-05-29] MEDS: Multivit/Ca/Min/Fe/FA 1 TAB TABLET PO SCH (10:19)
[2019-05-29] MEDS: Carbidopa/Levodopa ER 50/200 TABLET PO SCH ×2 (10:19→22:31)
[2019-05-29] MEDS: Ascorbic Acid 500 MG TABLET PO SCH ×2 (10:19→17:42)
[2019-05-29] MEDS: Finasteride 5 MG TABLET PO SCH (10:19)
[2019-05-29] MEDS: Ringers Solution, Lactated 1,000 ML IVC SCH (10:22)
[2019-05-29] MEDS: Fluconazole 200 MG/100 ML 100 MG/50 ML BAG IVPB SCH (10:28)
--- NOTE | 2019-05-29 11:01 | Infectious Disease Progress No ---
ID Progress Note Date of Encounter: 05/29/19 Time of Encounter: 11:00 - Subjective Subjective: Patient seen and examined with daughter at the bedside. No acute events noted overnight. Patient awake, but uncooperative with exam. ROS limited. Patient does not answer questions appropriately. Per his daughter, is more wheezy and has been coughing more this morning. Tmax 101 overnight. Last BM Tuesday. Still with little PO intake. Ho catheter remains patent. - Objective CBC & Chem 7: 05/29/19 05:07 05/29/19 05:07 - Line Documentation Line Documentation: Ho Catheter - Exam Vitals: Temp Pulse Resp BP Pulse Ox 98.8 F 83 16 131/73 100 05/29/19 07:29 05/29/19 07:29 05/29/19 07:29 05/29/19 07:29 05/29/19 07:29 Exam: Head: Atraumatic, normal inspection, normocephalic. Eye: EOMI, PERRLA, no scleral icterus noted. ENT: Mucous membranes dry. Exam limited due to patient non-compliance. Neck: Normal inspection, no meningismus. Respiratory: Wheezing noted throughout all mabry. Tachypneic. Cardiovascular: Regular rate and rhythm, S1 and S2 audible. No murmurs, rubs, or gallops. GI: Soft, distended. Normal bowel sounds. Ho catheter draining clear yellow urine. Extremities: No joint swelling, pedal edema, or tenderness noted. Right hip dressing C/D/I. Neurological: Opens eyes to verbal stimuli, follows some commands. WHITLOCK x 4 on command. Unable to assess orientation. Psychiatric: normal affect, normal mood. Skin: Dry, intact, warm. Normal color. No rashes. - Assessment and Plan (1) Fever Status: Acute Tmax 101 overnight. Wheezing and coughing noted this morning. Concern for PNA. Discussed with the primary team. Qualifiers: Fever type: unspecified Qualified Code(s): R50.9 - Fever, unspecified SNOMED Code(s): 488928278 (2) Leukocytosis Status: Resolved WBC 74844 on admission. Likely secondary to right hip infection and bacteremia. Improved. Qualifiers: Leukocytosis type: unspecified Qualified Code(s): D72.829 - Elevated white blood cell count, unspecified SNOMED Code(s): 365996507, 953395094 (3) Bacteremia Status: Acute Causative organism: Proteus mirabilis. Blood cultures drawn 05/24/19 are positive 1/2 sets for Proteus mirabilis. Repeat blood cultures drawn 05/25/19 are NGTD. Likely secondary to right PJI. Currently on IV Vanc and Rocephin. 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 Causative organism: Proteus mirabilis, bernal-sensitive and E. faecalis (ampS). Likely secondary to surgical site infection. Acute-onset. Orthopedics consulted. Status post right hip I & D 05/24/[address] Dawkins. Intra- op cultures as above. Unfortunately, the patient has a listed allergy of PCN. I discussed this with his daughters who state they do not know if this is a true allergy or not. He did not react to the controls during PCN allergy testing and it was stopped. Currently on IV vanc and rocephin. Qualifiers: Encounter type: initial encounter Qualified Code(s): T84.51XA - Infection and inflammatory reaction due to internal right hip prosthesis, initial encounter SNOMED Code(s): 812960472, 618837990 (5) Parkinson disease Status: Chronic SNOMED Code(s): 16399780 (6) CAD (coronary artery disease) Status: Chronic Qualifiers: Coronary Disease-Associated Artery/Lesion type: [place] artery [place] vs. transplanted heart: [place] heart Associated angina: without angina Qualified Code(s): I25.10 - Atherosclerotic heart disease of [place] coronary artery without angina pectoris SNOMED Code(s): 82707754 (7) CKD (chronic kidney disease) stage 4, GFR 15-29 ml/min Status: Chronic Monitor renal function closely and dose-adjust antibiotics. Avoid nephrotoxins as able. SNOMED Code(s): 106696693 (8) CHF (congestive heart failure) Status: Chronic Qualifiers: Heart failure type: unspecified Heart failure chronicity: unspecified Qualified Code(s): I50.9 - Heart failure, unspecified SNOMED Code(s): 51704714 (9) Anemia Status: Resolved Qualifiers: Anemia type: other cause Other causes of anemia: acute posthemorrhagic Qualified Code(s): D62 - Acute posthemorrhagic anemia SNOMED Code(s): 717776654 (10) Status post total hip replacement, right Status: Acute Status post right total hip replacement 05/11/19. SNOMED Code(s): 832345066700, 934897178703 (11) Penicillin allergy Status: Acute Exact mechanism of allergy unclear. Daughters are agreeable to PCN allergy testing. Dr. Reyes attempted testing this morning, but patient did not react to controls and testing was aborted. SNOMED Code(s): 19549556 (12) Oral thrush Status: Resolved Likely secondary to recent antibiotic use. I do not appreciate any thrush at this time, but exam limited due to patient non-compliance. Start nystatin mouthwash. Discontinue fluconazole. SNOMED Code(s): 39184721 - Recommendations Recommendations: Await repeat blood cultures to finalize. Postop care per the orthopedics team. Get CXR. Consider steroids/nebulizers, but will defer to the primary team. Discontinue fluconazole. Start nystatin mouthwash. Start nystatin powder to intertrininous areas. Discontinue Rocephin. Start Cefepime 2 grams IV Q12H. Start Flagyl 500mg PO TID. Continue Vancomycin IV. Pharmacy to dose. Goal trough ~15. Duration of treatment depends on the clinical picture, but likely 4-6 weeks. Family concerned that the patient will self-remove his PICC line if he requires IV antibiotics. Additionally, he is at high risk for KILO given his advanced age if he requires prolonged IV antibiotics. He is becoming more difficult to administer oral medications to. Palliative care consulted. Consult vascular access team for IV placement prior to discharge if the patient's family wants to pursue IV antibiotic therapy. We will need weekly CBC, BUN/creatinine, ESR, and CRP. Will need weekly IV care per protocol. Follow up with ID 06/12/19 at 1400. Consult Discharge Plan - Plan Referrals: NONE,PCP [Primary Care Provider] - Prescriptions: Leptospermum Honey [Medihoney] 1 appl TP DAILY #1 tube Prescription Printed Gabapentin [Neurontin] 300 mg PO HS #30 capsule Prescription Printed Morphine Sulfate Oral CONC [Roxanol Oral Conc] 5 mg SL Q4HR PRN 4 Days #15 ml PRN Reason: pain or dyspnea Prescription Printed Morphine Sulfate Oral CONC [Roxanol Oral Conc] 5 mg SL Q6HR 15 Days #15 ml Prescription Printed Silvasorb 1 appl TP DAILY #1 tube Prescription Printed - Attending Attestation I have personally performed a face to face evaluation on this patient. I have reviewed and agree with the care plan. History and Exam by me shows: Assessment and Plan: 1.PJI - R hip with proteus 2.bacteremia with proteus and Enterococcus faecalis 3.s/p fall May 11 s/p requiring ORIF 4.parkinsons disease 5.chronic pain Recommendations Continue Rocephin Continue vancomycin Nystatin swish and swallow Patient did not respond to the controls so they couldnt' do allergy testing monitor labs and for drug toxicity d/w hospitalist team d/w family at bed side at length
[2019-05-29] MEDS: Acetaminophen IV 1,000 MG/100 ML INFUS..BTL IVPB PRN ×2 (11:29→23:50)
--- NOTE | 2019-05-29 12:29 | Event Note ---
Date of Encounter: 05/29/19 Time of Encounter: 12:30 Patient status post Right Total Hip Replacment robotic-assisted. Date of surgery 05/11/19. Presenting to office 05/23 with complaints from [facility] staff of [facility] malodorous drainage from incision. Patient admitted to hospitalist service and is now POD#5 s/p Irrigation debridement right hip 05/24/19. Patient supine in bed, daughters on either side of bed. They state he is improved, but not to "baseline". Daughter from [place] states she believes him to be "hypersensitive to everything" citing example of her shirt sleeve brushing against his arm and him crying out "in pain". they state they believe the Gabapentin is helping. Dressing with small amount of serosanguinous drainage along incision. Incision intact. JOSE FRANCISCO drain has been removed. Patient expresses grimace and grunt with palpation of the right hip and thigh. No apparent calf tenderness, erythema, or warmth bilaterally. Skin tear with bandaging noted to left calf. Appears neurovascularly intact b/l LE. Patient not able to follow commands very well today, however, patient's daughter rushing to his side and rubbing his chest with any sound he seems to make. Labwork, vitals, and medications reviewed. BC x1 positive for growth. Culture swab from office found to be positive for Proteus Mirabilis. Intraop cultures positive for Proteus Mirabilis and Enterococcus. Pain control: Adequate per patient's daughters, though, as noted above they are concerned about his "hypersensitivity". Participating in therapy All questions and concerns addressed to patient's daughter's satisfaction. Addressed: With patient's positive cultures and positive BC will collaborate with infectious disease for appropriate treatment. Their input is appreciated. Recommendation for IV x 6 weeks Continue total hip precautions Daily pressure dressing changes. Patient course and disposition discussed with Dr. Dawkins, hospitalist, and palliative. D/C plan: continue postoperative care and medical management.
--- NOTE | 2019-05-29 14:32 | Internal Med Progress Note ---
Hospitalist Progress Note - Encounter Date of Encounter: 05/29/19 Time of Encounter: 10:35 - Subjective Interval History: Patient was seen this AM and afternoon with family. He is alert and awake but not oriented. He had temp overnight with cough this morning. he remined afebrile this morning. - Exam Vitals: Temp Pulse Resp BP Pulse Ox 98.8 F 83 16 131/73 100 05/29/19 07:29 05/29/19 07:29 05/29/19 07:29 05/29/19 07:29 05/29/19 07:29 Exam: General: Patient is alert, awake, no distress Head: Atraumatic, normal inspection, Eye: EOMI, PERRLA, ENT: Mucous membranes moist. Oral thrush Neck: Normal inspection Respiratory: No respiratory distress, rhonchi, or wheezes noted. Cardiovascular: Regular rate and regular rhythm, No murmurs, rubs, or gallops. GI: Soft, nondistended, normal bowel sounds. Extremities: wound looks clean, no drainage or discharge noted. Psychiatric: normal affect, normal mood. Skin: Dry, intact, warm. - Assessment and Plan (1) Status post total hip replacement, right Current Visit: Yes Status: Acute (2) DVT prophylaxis Current Visit: Yes Status: Acute (3) Leukocytosis Current Visit: Yes Status: Acute (4) Sepsis Current Visit: Yes Status: Resolved (5) Parkinson disease Current Visit: No Status: Chronic (6) CAD (coronary artery disease) Current Visit: No Status: Chronic (7) Oral thrush Current Visit: Yes Status: Acute (8) Protein calorie malnutrition Current Visit: Yes Status: Acute (9) Infection of right prosthetic hip joint Current Visit: Yes Status: Acute - Summary of Assessment and Plan Summary of Assessment and Plan: Mr. Pratt is a 84 year old male with a past medical history of dementia, Parkinson's, hypertension, CAD status post AR, CKD4, BPH presenting with complaints of having drainage from surgery site. Right hip septic arthritis: S/P wash out and drainage, POD-5, drain removed yesterday. Cx growing Proteus and Enterococcus faecalis was sensitive to ampicillin but patient has penicillin allergy. ID is following. Abx switched to cefepime/ flagyl and vancomycin . Pain management with scheduled percocet q6h and PRN for breakthrough pain. Patient was febrile but hemodynamically stable. Leukocytosis improved today. Check CBC tomorrow. sepsis: meet 2/4 criteria, managemet as per above.Follow-up blood cultures are still negative. Continue IV antibiotics as per above. CXR was negative for aspiration. UCx is pending. oral Thrush: fluconazole is switched with oral nystatin KILO on CKD stage III: Cr is at baseline. Continue to monitor History of Parkinson disease: Continue home medication History of dementia: On Ativan for agitation, cannot use antipsychotics due to Parkinson. Protein malnutrition: Prealbumin is low, nutrition is on board. Goals of cares: Family met with palliative and me today. extensive discussion regarding GOC. Speech therapy to eval and based on the eval they may proceed with Hospice and abx stoppage or continue with comfort care and IV abX, PICC line placement is on hold until final decision. DTR who is POA will make that decision. DVT prophylaxis: scd I reviewed independently all laboratory workup, pertinent images including x- rays and CT scans. I also reviewed independently and EKGs and my findings are in the body of my assessment and plan. I ordered the laboratory workup and images myself. I discussed finding with patient's, their families, RN's and consultants involved in the care of the patient. - Time Spent with Patient Total time spent is greater than 50% in coordination of care (as documented) at patient's floor/unit and/or counseling patient: Plan of Care Discussed with: family Internal Medicine: Result - Labs CBC & Chem 7: 05/29/19 05:07 05/29/19 05:07 Labs: Short CBC 05/29/19 Range/Units 05:07 WBC 12.3 H (4.3-11.1) K/mcL Hgb 9.6 L (12.9-16.9) g/dL Hct 30.9 L (37.5-50.1) % Plt Count 434 H (140-400) K/mcL BMP 05/29/19 05:07 Sodium 144 Potassium 3.9 Chloride 111 H Carbon Dioxide 25 BUN 25 H Creatinine 1.18 Glucose 181 H Calcium 8.3 L - Impressions Impressions Chest X-Ray 05/29/19 13:51 IMPRESSION: No acute process. D/ / Ryan Baptiste MD / Ryan Baptiste MD Interpreting Provider: Ryan Baptiste MD Consult Discharge Plan - Plan Referrals: NONE,PCP [Primary Care Provider] - (3) Leukocytosis Qualifiers: Leukocytosis type: unspecified Qualified Code(s): D72.829 - Elevated white blood cell count, unspecified (4) Sepsis Qualifiers: Sepsis type: sepsis due to unspecified organism Sepsis acute organ dysfunction status: with acute organ dysfunction Severe sepsis acute organ dysfunction type: acute renal failure Acute renal failure type: unspecified Severe sepsis shock status: without septic shock Qualified Code(s): A41.9 - Sepsis, unspecified organism; R65.20 - Severe sepsis without septic shock; N17.9 - Acute kidney failure, unspecified (6) CAD (coronary artery disease) Qualifiers: Coronary Disease-Associated Artery/Lesion type: [place] artery [place] vs. transplanted heart: [place] heart Associated angina: without angina Qualified Code(s): I25.10 - Atherosclerotic heart disease of [place] coronary artery without angina pectoris (8) Protein calorie malnutrition Qualifiers: Protein-calorie malnutrition severity: unspecified severity Qualified Code(s): E46 - Unspecified protein-calorie malnutrition (9) Infection of right prosthetic hip joint Qualifiers: Encounter type: initial encounter Qualified Code(s): T84.51XA - Infection and inflammatory reaction due to internal right hip prosthesis, initial encounter
[2019-05-29] MEDS: metroNIDAZOLE 500 MG TABLET PO SCH ×2 (15:29→23:46)
[2019-05-29] MEDS ORDERED: EPINEPHrine 1 MG/ML VIAL IV PRN (15:40)
[2019-05-29 15:59] LABS: Adenovirus Not Detected (Not Detect); Bordetella Pertussis Not Detected (Not Detect); Chlamydophila pneumoniae Not Detected (Not Detect); Coronavirus 229E Not Detected (Not Detect); Coronavirus HKU1 Not Detected (Not Detect); Coronavirus NL63 Not Detected (Not Detect); Coronavirus OC43 Not Detected (Not Detect); Human Metapneumovirus Not Detected (Not Detect); Human Rhinovirus/Enterovirus Not Detected (Not Detect); Influenza A Subtype 2009 H1 Not Detected (Not Detect); Influenza A Untypeable Not Detected (Not Detect); Influenza B Not Detected (Not Detect); Mycoplasma pneumoniae Not Detected (Not Detect); Parainfluenza Virus 1 Not Detected (Not Detect); Parainfluenza Virus 2 Not Detected (Not Detect); Parainfluenza Virus 3 Not Detected (Not Detect); Parainfluenza Virus 4 Not Detected (Not Detect); Respiratory Syncytial Virus Not Detected (Not Detect)
--- NOTE | 2019-05-29 16:25 | Allergy Procedure Note ---
Date of procedure: 05/29/19 Pre-op diagnosis: Adverse effect of penicillin Post-op diagnosis: same Procedure: Written consent signed for penicillin skin testing and oral challenge Saline prick placed on forearm -0x0 Histamine prick on forearm x 2 and on back x1 -0x0 Pre pen x 2 prick on forearm 0x0 Pen G x 2 prick on forearm 0x0 Testing was stopped as patient did not respond to histamine so testing is inconclusive. Anesthesia: none Was there an public services assistant present: Yes Envelope Cutter: Domitila Terrell Condition: stable
[2019-05-29] MEDS: Cefepime HCl 2,000 MG in 0.9 % Sodium Chloride Mini Bag 100 ML IVPB SCH (18:16)
[2019-05-29] MEDS: Gabapentin 300 MG CAPSULE PO SCH (22:30)
[2019-05-29] MEDS: Leptospermum Honey Gel 44 ML TUBE TP SCH (22:34)
[2019-05-30] MEDS: Sennosides 8.6 MG TABLET PO PRN (00:02)
[2019-05-30] MEDS: Ringers Solution, Lactated 1,000 ML IVC SCH (05:00)
[2019-05-30] MEDS: Cefepime HCl 2,000 MG in 0.9 % Sodium Chloride Mini Bag 100 ML IVPB SCH (06:02)
[2019-05-30] MEDS: *HR* OxyCODONE/APAP 5/325 TABLET PO SCH ×2 (06:03→11:50)
[2019-05-30 07:05] VITALS: BP 110/63
[2019-05-30] MEDS: Multivit/Ca/Min/Fe/FA 1 TAB TABLET PO SCH (09:22)
[2019-05-30] MEDS: Ascorbic Acid 500 MG TABLET PO SCH (09:22)
[2019-05-30] MEDS: metroNIDAZOLE 500 MG TABLET PO SCH ×2 (09:22→15:23)
[2019-05-30] MEDS: Carbidopa/Levodopa ER 50/200 TABLET PO SCH (09:22)
[2019-05-30] MEDS: Finasteride 5 MG TABLET PO SCH (09:22)
[2019-05-30] MEDS: Fluconazole 200 MG/100 ML 100 MG/50 ML BAG IVPB SCH (09:22)
[2019-05-30] MEDS: Silvasorb 44.4 ML TUBE TP SCH (09:23)
--- NOTE | 2019-05-30 12:40 | Discharge Summary ---
- NOTES TO OUTPATIENT PROVIDER Notes to Outpatient Provider: Patient was admitted for spetic arthritis after recent hip replacement. Was started on IV antibiotics. Due to decline in mental status and functional status, patient was made hospice and he will be discharged to hospice care. Orders not resulted at time of discharge: Pending orders 05/24/19 16:25 Culture,Anaerobic [RM] Routine Date of Encounter: 05/30/19 Time of Encounter: 09:30 - Discharge Diagnosis (1) Infection of right prosthetic hip joint Priority: Primary Status: Acute Qualifiers: Encounter type: initial encounter Qualified Code(s): T84.51XA - Infection and inflammatory reaction due to internal right hip prosthesis, initial encounter (2) Status post total hip replacement, right Priority: Secondary Status: Acute (3) DVT prophylaxis Priority: Secondary Status: Acute (4) Leukocytosis Priority: Secondary Status: Resolved Qualifiers: Leukocytosis type: unspecified Qualified Code(s): D72.829 - Elevated white blood cell count, unspecified (5) Sepsis Priority: Secondary Status: Resolved Qualifiers: Sepsis type: sepsis due to unspecified organism Sepsis acute organ dysfunction status: with acute organ dysfunction Severe sepsis acute organ dysfunction type: acute renal failure Acute renal failure type: unspecified Severe sepsis shock status: without septic shock Qualified Code(s): A41.9 - Sepsis, unspecified organism; R65.20 - Severe sepsis without septic shock; N17.9 - Acute kidney failure, unspecified (6) Parkinson disease Priority: Secondary Status: Chronic (7) CAD (coronary artery disease) Priority: Secondary Status: Chronic Qualifiers: Coronary Disease-Associated Artery/Lesion type: [place] artery [place] vs. transplanted heart: [place] heart Associated angina: without angina Qualified Code(s): I25.10 - Atherosclerotic heart disease of [place] coronary artery without angina pectoris (8) Oral thrush Priority: Secondary Status: Resolved (9) Protein calorie malnutrition Priority: Secondary Status: Chronic Qualifiers: Protein-calorie malnutrition severity: unspecified severity Qualified Code(s): E46 - Unspecified protein-calorie malnutrition Hospital course: Mr. Pratt is a 84 year old male with history of dementia, parkinsonism, recent hip replacement was managed and positive for right hip septic arthritis growing Proteus and enterococcus. Orthopedic surgery did a washout to the infected hip and patient was placed on IV antibiotics. Palliative team was involved and multiple extensive discussions with the family to plan for the post discharge placement. However, given recent functional and mental decline noted by the family and the type of pain patient was experiencing with physical therapy, family opted for hospice care hoping for better pain control and possible oral antibiotics. Given patient's penicillin allergy and his inability to cooperate with allergy test, ID recommended against oral antibiotics and family agreed. Today, patient will be discharged to hospice care. All arrangements were made by social service and palliative team. Discharge discussed with: family - Time Spent with Patient Total time spent providing and/or coordinating discharge services: 70 minutes - Discharge Medications Prescriptions: New Morphine Sulfate Oral CONC [Roxanol Oral Conc] 5 mg SL Q6HR 15 Days #15 ml Gabapentin [Neurontin] 300 mg PO HS #30 capsule Morphine Sulfate Oral CONC [Roxanol Oral Conc] 5 mg SL Q4HR PRN 4 Days #15 ml PRN Reason: pain or dyspnea Continued Simvastatin [Zocor] 40 mg PO HS Finasteride [Proscar] 5 mg PO DAILY Cyclobenzaprine [Flexeril] 10 mg PO BID Carbidopa/Levodopa ER 50/200 [Sinemet ER 50-200 Tab] 1 tab PO BID Tamsulosin HCl [Flomax] 0.8 mg PO DAILY Donepezil [Aricept] 10 mg PO HS Leptospermum Honey [Medihoney] 1 appl TP DAILY #1 tube Silvasorb 1 appl TP DAILY #1 tube Discontinued Potassium Chloride [K-Tab ER] 20 meq PO BID Pantoprazole Sodium 40 mg PO DAILY Meloxicam [Mobic] 15 mg PO DAILY Furosemide [Lasix] 40 mg PO BID Fenofibric Acid (Choline) [Trilipix] 135 mg PO DAILY Docusate [Colace] 100 mg PO BID 5 Days #10 capsule Acetaminophen [Pain Relief] 500 mg PO Q6H 7 Days #28 tablet Lidocaine Patch [Lidoderm 5% patch] 1 each TP DAILY adh..patch Acetaminophen [Tylenol] 650 mg PO Q6H PRN tablet PRN Reason: Mild Pain/Fever Tramadol HCl [Ultram] 50 mg PO DAILY PRN 2 Days #2 tab PRN Reason: afternoon breakthrough pain HYDROcodone/Acet 5/325 mg [[place] 5-325 mg] 0.5 tab PO BID 3 Days #3 tablet Home Medications: Carbidopa/Levodopa ER 50/200 [Sinemet ER 50-200 Tab] 1 tab PO BID 08/05/16 [History] Cyclobenzaprine [Flexeril] 10 mg PO BID 04/16/16 [History] Finasteride [Proscar] 5 mg PO DAILY 04/16/16 [History] Simvastatin [Zocor] 40 mg PO HS 04/16/16 [History] Tamsulosin HCl [Flomax] 0.8 mg PO DAILY 10/15/16 [History] Donepezil [Aricept] 10 mg PO HS 05/10/19 [History] Gabapentin [Neurontin] 300 mg PO HS #30 capsule 05/30/19 [Rx] Leptospermum Honey [Medihoney] 1 appl TP DAILY #1 tube 05/30/19 [Rx] Morphine Sulfate Oral CONC [Roxanol Oral Conc] 5 mg SL Q4HR PRN 4 Days #15 ml 05/30/19 [Rx] Morphine Sulfate Oral CONC [Roxanol Oral Conc] 5 mg SL Q6HR 15 Days #15 ml 05/30/19 [Rx] Silvasorb 1 appl TP DAILY #1 tube 05/30/19 [Rx] Allergies/Adverse Reactions: Allergy/AdvReac Type Severity Reaction Status Date / Time Penicillins AdvReac Swelling Verified 05/23/19 21:35 of Lip/Tongue/Throat Date of admission: 05/25/19 14:39 Primary care physician: PCP NONE Consults: 05/23/19 17:38 Consult to Floor Cashier [CONS] Routine Reason for SW Consult: discharge planning 05/23/19 22:49 Consult to Wound Care [CONS] Routine Reason for Consult: Please assess patient's right hip wound and make recommendations for daily wound care. Call Completed: No 05/24/19 11:32 Consult to Orthopedic Surgery [CONS] Routine Consulting Provider: [facility] Reason for Consult: hip fracture for washout Call Completed: Yes 05/24/19 12:01 Consult to Palliative Care [CONS] Routine Comment: Consulting Provider: Palliative Care [facility] Reason for Consult: dementia, hip fracture, recurrent hospital admissions Call Completed: Yes 05/24/19 18:28 Consult to Nurse Navigator [CONS] Routine Comment: ortho navigator Consult to Nutrition [CONS] Routine Comment: Consulting Provider: NUTRITION Reason for Dietary Consult: Other Other:: Proper nutrition to facilitate wound healing Consult to Occupational Therapy [CONS] Routine Comment: Evaluate, develop and implement POC Reason for Consult: total hip replacement Does patient have active BEDREST order?: No Is patient medically & hemodynamically stable?: Yes Consult to Physical Therapy [CONS] Routine Comment: Evaluate, develop and implement POC Reason for Consult: total hip replacement Does patient have active BEDREST order?: No Is patient medically & hemodynamically stable?: Yes Consult to Floor Cashier [CONS] Routine Reason for SW Consult: post op joint replacement RT Post Op Consult [CONS] Routine 05/25/19 14:42 Consult to Infectious Diseases [CONS] Routine Consulting Provider: Infectious Disease [facility] Reason for Consult: antibiotic treatment Call Completed: Yes 05/28/19 14:09 Consult to Allergy/Immunology [CONS] Routine Consulting Provider: Allergy Alyssa Reason for Consult: PCN allergy Call Completed: Yes 05/29/19 13:42 Consult to Speech Therapy [CONS] Routine Comment: Evaluate, develop and implement POC Reason for Consult: possible aspiration Call Completed: No - Constitutional Vitals: Temp Pulse Resp BP Pulse Ox 98.7 F 101 24 110/63 100 05/30/19 07:04 05/30/19 07:04 05/30/19 07:04 05/30/19 07:04 05/30/19 07:04 Exam: General: Patient is awake, no distress Head: Atraumatic, normal inspection, Eye: EOMI, PERRLA, ENT: Mucous membranes moist. Oral thrush Neck: Normal inspection Respiratory: No respiratory distress, rhonchi, or wheezes noted. Cardiovascular: Regular rate and regular rhythm, No murmurs, rubs, or gallops. GI: Soft, nondistended, normal bowel sounds. Extremities: wound looks clean, no drainage or discharge noted. Psychiatric: normal affect, normal mood. Skin: Dry, intact, warm. - Patient Status Disposition: Hospice - Medical Facility Condition: Fair Functional capacity at discharge: bed bound Overall status at discharge: patient is not back to baseline - Discharge Instructions Follow Up With: NONE,PCP [Primary Care Provider] - - Diet and Activity Activity: other (bedrest ) Diet: other (pureed)
[2019-05-30] MEDS ORDERED: Morphine Sulfate Oral CONC 10 MG/0.5 ML ORAL.SYG SL PRN (12:47)
[2019-05-30] MEDS: Acetaminophen IV 1,000 MG/100 ML INFUS..BTL IVPB PRN (15:14)
--- NOTE | 2019-05-30 15:26 | Infectious Disease Progress No ---
ID Progress Note Date of Encounter: 05/30/19 Time of Encounter: 15:23 - Subjective Subjective: Patient seen and examined with daughters at the bedside. No acute events noted overnight. Patient awake, but uncooperative with exam. ROS limited. Patient does not answer questions appropriately. Last BM today. Still with little PO intake. Ho catheter remains patent. Long discussion had with the patient's two daughter's regarding the plan of care. They have opted to pursue hospice at this point and discontinue further workup. They do not want to continue the IV antibiotics at this time. I have advised them that based on culture results/susceptibilities and the patient's allergies, we do not have any oral options to treat the enterococcus that came back on the intra-op cultures. They verbalize understanding and are agreeable to forego any additional antibiotic therapy at the time of discharge. - Objective CBC & Chem 7: 05/29/19 05:07 05/29/19 05:07 - Line Documentation Line Documentation: Ho Catheter - Exam Vitals: Temp Pulse Resp BP Pulse Ox 98.7 F 101 24 110/63 100 05/30/19 07:04 05/30/19 07:04 05/30/19 07:04 05/30/19 07:04 05/30/19 07:04 Exam: Head: Atraumatic, normal inspection, normocephalic. Eye: EOMI, PERRLA, no scleral icterus noted. ENT: Mucous membranes dry. Exam limited due to patient non-compliance. Neck: Normal inspection, no meningismus. Respiratory: CTA throughout. Cardiovascular: Regular rate and rhythm, S1 and S2 audible. No murmurs, rubs, or gallops. GI: Soft, distended. Normal bowel sounds. Ho catheter draining clear yellow urine. Incontinent of brown stool. Extremities: No joint swelling, pedal edema, or tenderness noted. Right hip dressing C/D/I with small amount of shadow drainage. Neurological: Opens eyes to verbal stimuli, follows some commands. WHITLOCK x 4 on command. Oriented x2. Psychiatric: normal affect, normal mood. Skin: Dry, intact, warm. Normal color. No rashes. - Assessment and Plan (1) Fever Status: Acute Afebrile overnight. Wheezing and coughing improved today. Concern for aspiration, but CXR negative. The patient's family has opted to pursue hospice at this point. No further workup per their request. Qualifiers: Fever type: unspecified Qualified Code(s): R50.9 - Fever, unspecified SNOMED Code(s): 228488573 (2) Leukocytosis Status: Resolved WBC 48473 on admission. Likely secondary to right hip infection and bacteremia. Improved. Qualifiers: Leukocytosis type: unspecified Qualified Code(s): D72.829 - Elevated white blood cell count, unspecified SNOMED Code(s): 762568077, 151762858 (3) Bacteremia Status: Acute Causative organism: Proteus mirabilis. Blood cultures drawn 05/24/19 are positive 1/2 sets for Proteus mirabilis. Repeat blood cultures drawn 05/25/19 are negative. Likely secondary to right PJI. Currently on IV Vanc and Rocephin. SNOMED Code(s): 0576192 (4) Infection of right prosthetic hip joint Status: Acute Location: Right hip. Causative organism: Proteus mirabilis, bernal-sensitive and E. faecalis (ampS). Likely secondary to surgical site infection. Acute-onset. Orthopedics consulted. Status post right hip I & D 05/24/[address] Dawkins. Intra- op cultures as above. Unfortunately, the patient has a listed allergy of PCN. I discussed this with his daughters who state they do not know if this is a true allergy or not. He did not react to the controls during PCN allergy testing and it was stopped. Currently on IV vanc and rocephin. Qualifiers: Encounter type: initial encounter Qualified Code(s): T84.51XA - Infection and inflammatory reaction due to internal right hip prosthesis, initial encounter SNOMED Code(s): 994759691, 355991924 (5) Parkinson disease Status: Chronic SNOMED Code(s): 62722932 (6) CAD (coronary artery disease) Status: Chronic Qualifiers: Coronary Disease-Associated Artery/Lesion type: [place] artery [place] vs. transplanted heart: [place] heart Associated angina: without angina Qualified Code(s): I25.10 - Atherosclerotic heart disease of [place] coronary artery without angina pectoris SNOMED Code(s): 19990910 (7) CKD (chronic kidney disease) stage 4, GFR 15-29 ml/min Status: Chronic Monitor renal function closely and dose-adjust antibiotics. Avoid nephrotoxins as able. SNOMED Code(s): 460896171 (8) CHF (congestive heart failure) Status: Chronic Qualifiers: Heart failure type: unspecified Heart failure chronicity: unspecified Qualified Code(s): I50.9 - Heart failure, unspecified SNOMED Code(s): 81924278 (9) Anemia Status: Resolved Qualifiers: Anemia type: other cause Other causes of anemia: acute posthemorrhagic Qualified Code(s): D62 - Acute posthemorrhagic anemia SNOMED Code(s): 955909306 (10) Status post total hip replacement, right Status: Acute Status post right total hip replacement 05/11/19. SNOMED Code(s): 405882502407, 234060104461 (11) Penicillin allergy Status: Acute Exact mechanism of allergy unclear. Daughters are agreeable to PCN allergy testing. Dr. Reyes attempted testing, but patient did not react to controls and testing was aborted. SNOMED Code(s): 09241659 (12) Oral thrush Status: Resolved Likely secondary to recent antibiotic use. I do not appreciate any thrush at this time, but exam limited due to patient non-compliance. Continue nystatin mouthwash. SNOMED Code(s): 63817652 - Recommendations Recommendations: Postop care per the orthopedics team. Steroids/nebulizers, but will defer to the primary team. Continue nystatin mouthwash. Continue nystatin powder to intertrininous areas. Continue Cefepime 2 grams IV Q12H. Continue Flagyl 500mg PO TID. Continue Vancomycin IV. Pharmacy to dose. Goal trough ~15. Duration of treatment depends on the clinical picture. The patient's family has opted to pursue hospice and therefore IV antibiotics are not an option on discharge. Unfortunately, due to the bacterial susceptibilities, there are no oral options at this point. I had a long discussion with the patient's family regarding this and offered the opportunity to trial a PCN derivative even though the patient has a listed allergy. They declined and understand that we have no other antibiotic options are they are okay with discharging the patient to the ECF without any antibiotics. No further recommendations from the ID team. We will sign off. Please re-consult if needed. Consult Discharge Plan - Plan Referrals: NONE,PCP [Primary Care Provider] - Prescriptions: Leptospermum Honey [Medihoney] 1 appl TP DAILY #1 tube Prescription Printed Gabapentin [Neurontin] 300 mg PO HS #30 capsule Prescription Printed Morphine Sulfate Oral CONC [Roxanol Oral Conc] 5 mg SL Q4HR PRN 4 Days #15 ml PRN Reason: pain or dyspnea Prescription Printed Morphine Sulfate Oral CONC [Roxanol Oral Conc] 5 mg SL Q6HR 15 Days #15 ml Prescription Printed Silvasorb 1 appl TP DAILY #1 tube Prescription Printed - Attending Attestation I have personally performed a face to face evaluation on this patient. I have reviewed and agree with the care plan. History and Exam by me shows: Assessment and Plan: 1.PJI - R hip with proteus 2.bacteremia with proteus and Enterococcus faecalis 3.s/p fall May 11 s/p requiring ORIF 4.parkinsons disease 5.chronic pain Recommendations Patient's chest x-ray was negative for pneumonia. Swallow evaluation was done and the recommendation of speech therapy appreciated in Family wanted to go with hospice and initially was requesting oral antibiotics I had a long discussion with the daughters who are at bedside in the presence of the hospice nurses and explained to them that we have no oral options for him. Patient has Enterococcus faecalis and he is allergic to penicillin. Rosario know the reaction to penicillin I feel uncomfortable giving him a penicillin-based antibiotics resting case he goes into anaphylaxis and he is DNR. I cannot give him Zyvox because we will probably have to treat for 6 weeks and is contraindicated to give Zyvox for more than 2 weeks.
--- NOTE | 2019-05-30 15:34 | Physician Discharge Referral ---
Home Health/Hosp Referral Info Transfer to: Hospice Provider in Charge Post Discharge: [employer] - Diagnosis (1) Infection of right prosthetic hip joint Priority: Primary Status: Acute (2) Status post total hip replacement, right Priority: Secondary Status: Acute (3) DVT prophylaxis Priority: Secondary Status: Acute (4) Leukocytosis Priority: Secondary Status: Resolved (5) Sepsis Priority: Secondary Status: Resolved (6) Parkinson disease Priority: Secondary Status: Chronic (7) CAD (coronary artery disease) Priority: Secondary Status: Chronic (8) Oral thrush Priority: Secondary Status: Resolved (9) Protein calorie malnutrition Priority: Secondary Status: Chronic - Respiratory Orders Smoking Cessation: Smoking cessation has been advised. For more information, call the [employer] Tobacco Quit Line at 0-301-FCFV-NOW. - Diet/Nutrition Diet/Nutrition Orders: Pureed - Activity Activity Orders: Bedrest - Transfer Medications Prescriptions: Leptospermum Honey [Medihoney] 1 appl TP DAILY #1 tube Prescription Printed Gabapentin [Neurontin] 300 mg PO HS #30 capsule Prescription Printed Morphine Sulfate Oral CONC [Roxanol Oral Conc] 5 mg SL Q4HR PRN 4 Days #15 ml PRN Reason: pain or dyspnea Prescription Printed Morphine Sulfate Oral CONC [Roxanol Oral Conc] 5 mg SL Q6HR 15 Days #15 ml Prescription Printed Silvasorb 1 appl TP DAILY #1 tube Prescription Printed Home Medications: Carbidopa/Levodopa ER 50/200 [Sinemet ER 50-200 Tab] 1 tab PO BID 04/16/16 [History] Cyclobenzaprine [Flexeril] 10 mg PO BID 04/16/16 [History] Finasteride [Proscar] 5 mg PO DAILY 04/16/16 [History] Simvastatin [Zocor] 40 mg PO HS 04/16/16 [History] Tamsulosin HCl [Flomax] 0.8 mg PO DAILY 10/15/16 [History] Donepezil [Aricept] 10 mg PO HS 05/10/19 [History] Gabapentin [Neurontin] 300 mg PO HS #30 capsule 05/30/19 [Rx] Leptospermum Honey [Medihoney] 1 appl TP DAILY #1 tube 05/30/19 [Rx] Morphine Sulfate Oral CONC [Roxanol Oral Conc] 5 mg SL Q4HR PRN 4 Days #15 ml 05/30/19 [Rx] Morphine Sulfate Oral CONC [Roxanol Oral Conc] 5 mg SL Q6HR 15 Days #15 ml 05/30/19 [Rx] Silvasorb 1 appl TP DAILY #1 tube 05/30/19 [Rx] Allergies/Adverse Reactions: Allergy/AdvReac Type Severity Reaction Status Date / Time Penicillins AdvReac Swelling Verified 05/23/19 21:35 of Lip/Tongue/Throat Certification: Further, I certify that my clinical findings support that this patient is homebound (i.e. absences from home require considerable and taxing effort and are for medical reasons or roman cath[employer] services or infrequently or short duration when for other reasons) because: Homebound Reason: Patient requires assistance of a person or device to safely leave home Attestation: My signature below is to certify that this patient is under my care and that I, or nurse practitioner, or a physician's purchasing assistant working with me, has a [id number] encounter with this patient.
--- NOTE | 2019-05-30 17:00 | Palliative Progress Note ---
Date of Encounter: 05/30/19 Time of Encounter: 15:00 - Assessment and plan (1) Palliative care encounter Current Visit: Yes Status: Acute Assessment and plan: Multiple goals of care discussions with pt/family this admission. Plan to discharge pt to [facility] with hospice support through [facility]. [place] customer liaison and primary team SW assisting with discharge plans. (2) Neuropathic pain Current Visit: Yes Status: Acute Assessment and plan: Continue gabapentin 300mg QHS. (3) Right hip pain Current Visit: Yes Status: Acute Assessment and plan: Given pt's difficulty swallowing multiple pills, recommend to change Percocet to Roxanol 5mg SL Q6hrs ATC + 5mg Roxanol Q4hr PRN for breakthrough pain/shortness of breath. Opioid scripts faxed and sent to facility. [orders entered] Tramadol discontinued. (4) Septic arthritis Current Visit: Yes Status: Acute Assessment and plan: S/P wash out and drainage this admission. Cx growing Proteus and Enterococcus faecalis was sensitive to ampicillin but patient has penicillin allergy. ID is following. Family has decided to discontinue IV antibiotics and pursue transition to hospice care. Plan for dc to hospice today. (5) Parkinson disease Current Visit: No Status: Chronic - Time Spent With Patient Total time spent is greater than 50% in coordination of care (as documented) at patient's floor/unit and/or counseling patient: 70 minutes - Subjective Interval history: Pt lying in bed, ill-appearing, minimally responsive, NAD. Pt's daughters at bedside today. Pt is able to awaken and answer some questions regarding his symptoms. He is not oriented to place or situation. Pt appears comfortable at the time of the visit. Family voices pt does have difficult swallowing pills, we discussed switching comfort medications to liquid sublingual form. Pt's family is in agreement. Per Infectious Disease team, they are not recommending to continue PO antibiotics as there are no oral options to treat the enterococcus that came back on cultures. Family voices clear understanding of this. Plan to discharge pt to [facility] with hospice support through [facility]. [place] customer liaison at bedside during visit to meet with family. Pt/family deny further questions or needs at this time. - Constitutional Vitals: Abnormal lab results WBC 12.3 K/mcL (4.3-11.1) H 05/29/19 05:07 RBC 3.12 M/mcL (4.19-5.50) L 05/29/19 05:07 Hgb 9.6 g/dL (12.9-16.9) L 05/29/19 05:07 Hct 30.9 % (37.5-50.1) L 05/29/19 05:07 MCHC 31.1 g/dL (31.6-35.5) L 05/29/19 05:07 Plt Count 434 K/mcL (140-400) H 05/29/19 05:07 Neutrophils # 9.0 K/mcL (1.6-8.9) H 05/26/19 04:12 Monocytes # 1.5 K/mcL (0.0-1.3) H 05/24/19 00:11 Eosinophils # 0.8 K/mcL (0.0-0.6) H 05/26/19 04:12 ESR 82 mm/hr (0-10) H 05/25/19 15:04 Sodium 146 mEq/L (136-145) H 05/25/19 03:46 Chloride 111 mEq/L (98-107) H 05/29/19 05:07 Carbon Dioxide 21 mEq/L (23-29) L 05/26/19 04:12 BUN 25 mg/dL (8-23) H 05/29/19 05:07 Creatinine 1.39 mg/dL (0.70-1.30) H 05/28/19 04:20 Est GFR ( Amer) 59 (> 60) L 05/28/19 04:20 Est GFR (Non-Af Amer) 59 (> 60) L 05/29/19 05:07 BUN/Creatinine Ratio 28 (6-26) H 05/26/19 04:12 Glucose 181 mg/dL (70-105) H 05/29/19 05:07 POC Glucose 157 mg/dL (70-99) H 05/24/19 11:42 Calculated Osmolality 307 (280-300) H 05/29/19 05:07 Calcium 8.3 mg/dL (8.6-10.3) L 05/29/19 05:07 ALT 3 Units/L (7-52) L 05/24/19 00:11 C-Reactive Protein 81 mg/L (Less than 10) H 05/25/19 15:04 Albumin 2.8 g/dL (3.5-5.7) L 05/24/19 00:11 Globulin 3.9 g/dL (2.4-3.5) H 05/24/19 00:11 Albumin/Globulin Ratio 0.7 (1.1-2.2) L 05/24/19 00:11 Prealbumin 10.4 mg/dL (17.0-34.0) L 05/26/19 04:12 Vancomycin Trough 30 mcg/mL (5-10) H 05/28/19 15:35 Proteus species (PCR) DETECTED (Not Detect) A 05/24/19 00:11 Exam: CONSTITUTIONAL/GENERAL: Minimally responsive, ill-appearing, NAD, lying in bed. Ear/Nose/Mouth/Throat (EMNT): Patent, atraumatic. CARDIOVASCULAR: Pulse regular, generalized edema. RESPIRATORY: Unlabored. Symmetric, normal effort. Room air. GASTROINTESTINAL: Distended. Active bowel sounds noted. GENITOURINARY: Ho catheter present. NEUROLOGIC: Minimally responsive, awakens, intermittent incomprehensible sounds noted. PSYCHIATRY: Unable to assess d/t mental status. Palliative Quality Palliative Quality: Screen for Code Status: Yes, Screen for Goals of Care: Yes, Screen for Pain: Yes, If Pain Regimen Started, Initiate Bowel Regimen: Yes, Screen for Nausea/Vomitting: Yes Code Status: 05/23/19 17:37 Resuscitation Status: Active [RES] Routine Comment: Resuscitation Status: Full Code 05/24/19 13:18 DNR [Resuscitation Status: Active] [RES] Routine Comment: Resuscitation Status: DNR-Comfort Care-Arrest 05/28/19 16:20 DNR [Resuscitation Status: Active] [RES] Routine Comment: Resuscitation Status: DNR-Comfort Care - Labs CBC & Chem 7: 05/29/19 05:07 05/29/19 05:07 Consult Discharge Plan - Plan Referrals: NONE,PCP [Primary Care Provider] - Prescriptions: Leptospermum Honey [Medihoney] 1 appl TP DAILY #1 tube Prescription Printed Gabapentin [Neurontin] 300 mg PO HS #30 capsule Prescription Printed Morphine Sulfate Oral CONC [Roxanol Oral Conc] 5 mg SL Q4HR PRN 4 Days #15 ml PRN Reason: pain or dyspnea Prescription Printed Morphine Sulfate Oral CONC [Roxanol Oral Conc] 5 mg SL Q6HR 15 Days #15 ml Prescription Printed Silvasorb 1 appl TP DAILY #1 tube Prescription Printed
[2019-05-30] MEDS ORDERED: Morphine Sulfate Oral CONC 10 MG/0.5 ML ORAL.SYG SL SCH (18:00)
[2019-05-30] MEDS: Leptospermum Honey Gel 44 ML TUBE TP SCH (18:08)
[2019-05-30] MEDS ORDERED: Aminoglycoside Consult 1 EACH MC ONE (18:59)
--- NOTE | 2019-06-01 17:35 | Event Note ---
Date of Encounter: 05/30/19 Time of Encounter: 09:00 Patient status post Right Total Hip Replacment robotic-assisted. Date of surgery 05/11/19. Presenting to office 05/23 with complaints from F staff of brown malodorous drainage from incision. Patient admitted to hospitalist service and is now POD#5 s/p Irrigation debridement right hip 05/24/19. Patient supine in bed, daughters on either side of bed. They state he is worsening. Daughters state they believe the Gabapentin is helping his pain. Dressing saturated with serosanguinous drainage along incision - notes reveal daughters requested dressing not be changed yesterday. Incision intact. JOSE FRANCISCO drain has been removed. Patient expresses grimace and grunt with palpation of the right hip and thigh. No apparent calf tenderness, erythema, or warmth bilaterally. Skin tear with bandaging noted to left calf. Appears neurovascularly intact b/l LE. Patient not able to follow commands today. Patient's daughter rushing to his side and rubbing his chest with any sound he seems to make. Labwork, vitals, and medications reviewed. BC x1 positive for growth. Culture swab from office found to be positive for Proteus Mirabilis. Intraop cultures positive for Proteus Mirabilis and Enterococcus. Pain control: Adequate per patient's daughters, though, as noted above they are concerned about his "hypersensitivity". All questions and concerns addressed to patient's daughter's satisfaction. Addressed: With patient's positive cultures and positive BC will collaborate with infectious disease for appropriate treatment. Their input is appreciated. Recommendation for IV x 6 weeks however patient's daughters have elected to pursue hospice care and discontinue antibiotics. Per infectious disease there is not an oral alternative for treatment. Patient's daughters have asked to cancel outpatient follow up and pursue comfort care only. Would still recommend daily dressing changes for comfort and hygiene. Patient course and disposition discussed with Dr. Dawkins, hospitalist, and palliative. D/C plan: to hospice when services are ready per hospitalist team
== END 2019-05-30 19:00 | disposition hospice, inpatient (51) | DRG 480 ==
LOC: 3NENU → SUATTDRO 05-25 14:39
PROVIDERS: ADMIT Internal Medicine; ATTEND Internal Medicine